=== PATIENT | female | born 1940 | race Caucasian/White ===

== ENCOUNTER 2016-08-11 06:43 | Emergency (ER) | payer MEDICARE, BC ==
[2016-08-11] MEDS ORDERED: Albuterol/Ipratropium 3.0-0.5 MG/3 ML Neb Soln NEB ONE (07:06)
[2016-08-11] MEDS ORDERED: Ipratropium 0.02% 0.5 MG/2.5 ML Neb Soln NEB STA (07:09)
[2016-08-11] MEDS ORDERED: Sodium Chloride 0.9% 10 ML Syringe FLUSH PRN (07:28)
--- NOTE | 2016-08-11 07:41 | EDM.PDOC ---
[id number]: TROUBLE BREATHING Time Seen by Provider: 08/11/16 06:45 Source: Reports: Patient, Family History Limitations: Reports: Respiratory distress - History of Present Illness INITIAL COMMENTS - FREE TEXT/NARRATIVE: 76 y.o.w.f. with a h/o a large hiatal hernia, H/O PE 1 year ago came to the ed with her SO because she woke up with SOB. No C/P. pt walked into the ed. Her o2 was 92% on RA. Pt is on 2 l O2 by NC at home. Pt denies any other acute medical issues. Symptom Onset Date: 08/11/16 Symptom Onset Time: 06:00 Timing/Duration: Reports: Hour(s): Severity: mild Location, General: Reports: chest Quality: Reports: Same as previous episode Improves with: Reports: Rest Worsens with: Reports: Movement Context, General: Reports: Activity, Exercise Associated Symptoms: Reports: shortness of breath - Related Data Allergies/ADRs: Allergies Allergy/AdvReac Type Severity Reaction Status Date / Time codeine Allergy Severe angioedema Verified 08/11/16 13:14 albuterol sulfate Allergy Unknown UNKNOWN Verified 08/11/16 13:14 [From Ventolin HFA] aspirin AdvReac Mild Vomiting Verified 08/11/16 13:14 Home Meds: Home Meds . [Unable to Verify Home Med List] 08/11/16 [History] Past Medical History - Past Health History Medical/Surgical History: Denies Medical/Surgical History HEENT History: Reports: Other (see below) Other HEENT History: Wears glasses usually. Cardiovascular History: Reports: Blood clots/VTE/DVT Other Cardiovascular History: Recent blood clot in right leg. Respiratory History: Reports: Other (see below) Other Respiratory History: Recent bronchitis. Gastrointestinal History: Reports: GERD Musculoskeletal History: Reports: Arthritis Other Musculoskeletal History: Arthritis in hands and legs. Neurological History: Reports: Seizure Other Neuro History: Epilepsy. Hematologic History: Reports: Anemia, Anticoagulation therapy, Blood transfusion (s), Other (see below) Other Hematologic History: Denies any past history of anemia. - Infectious Disease History Infectious Disease History: Reports: Chicken pox, Rubella - Past Surgical History HEENT Surgical History: Reports: Cataract surgery, Tonsillectomy GI Surgical History: Reports: Colonoscopy, Hernia repair/other, Rimma fundoplication Musculoskeletal Surgical History: Reports: None Social & Family History - Tobacco Use Smoking Status *Q: Never Smoker Second Hand Smoke Exposure: No - Alcohol Use Days Per Week of Alcohol Use: 0 - Recreational Drug Use Recreational Drug Use: No ED ROS GENERAL - Review of Systems Review Of Systems: See Below Constitutional: Reports: no symptoms HEENT: Reports: No symptoms Respiratory: Reports: Shortness of Breath Cardiovascular: Reports: No symptoms Endocrine: Reports: no symptoms GI/Abdominal: Reports: No symptoms : Reports: no symptoms Musculoskeletal: Reports: no symptoms Skin: Reports: no symptoms Neurological: Reports: No Symptoms Psychiatric: Reports: No symptoms Hematologic/Lymphatic: Reports: no symptoms Immunologic: Reports: no symptoms ED EXAM, GENERAL - Physical Exam Exam: See Below Exam Limited By: Respiratory distress General Appearance: alert, WD/WN, mild distress, thin Eye Exam: bilateral eye: normal inspection Ears: normal external exam, normal canal Ear Exam: bilateral ear: auricle normal Nose: normal inspection, normal mucosa, no blood Throat/Mouth: Normal lips, Normal voice, No airway compromise Head: atraumatic, normocephalic Neck: normal inspection, supple, non-tender, full range of motion Respiratory/Chest: normal breath sounds, wheezing (mild) Cardiovascular: normal peripheral pulses, regular rate, rhythm Peripheral Pulses: 2+: femoral (L), femoral (R) GI/Abdominal: tender (chronic), mass (h/o hiatal hernia) (Female) Exam: Deferred Rectal (Female) Exam: Deferred Back Exam: normal inspection, full range of motion Extremities: normal inspection, normal range of motion, non-tender Neurological: alert, oriented, CN II-XII intact, normal cognition, normal gait Psychiatric: normal affect, normal mood Skin Exam: Warm, Dry, Intact, Normal color, No rash EKG INTERPRETATION EKG Date: 08/11/16 Time: 07:30 Rate (beats/min): 58 [place]: normal P-wave: present QRS: normal ST-T: normal QT: normal Comparison: NA - no prior EKG Course - Vital Signs Text/Narrative:: 76 y.o.w.f. with a h/o a large hiatal hernia, H/O PE 1 year ago came to the ed with her SO because she woke up with SOB. No C/P. pt walked into the ed. Her o2 was 92% on RA. Pt is on 2 l O2 by NC at home. Pt denies any other acute medical issues. PE: Thin 76 y.o.w.f. in no obvious discomfort. pulse ox was 92% on 2 liters. Lungs were clear Labs: D Dimer was elevated to 525 Imaging: CTA was negfro PE. Pt has a large hiatal hernia Impression: Asthma, on home O2, Hiatal hernia Tx: Chen olivarez. Reexam: Pt improved, was on her baseline and requested to be discharged. Plan: D/C with instructions. Last Recorded V/S: Last Vital Signs Temp 36.2 C 08/11/16 07:15 Pulse 58 L 08/11/16 08:15 Resp 20 08/11/16 08:45 BP 121/65 08/11/16 08:45 Pulse Ox 99 08/11/16 08:45 - Orders/Labs/Meds Labs: Laboratory Tests 08/11/16 08/11/16 08/11/16 Range/Units 07:15 07:15 07:15 WBC 4.8 (4.5-12.0) X10-3/uL RBC 4.33 (3.23-5.20) x10(6)uL Hgb 12.9 D (11.5-15.5) g/dL Hct 38.3 D (30.0-51.3) % MCV 88.4 (80-96) fL MCH 29.7 (27.7-33.6) pg MCHC 33.6 (32.2-35.4) g/dL RDW 13.4 (11.5-15.5) % Plt Count 155 (125-369) X10(3)uL MPV 7.9 (7.4-10.4) fL Neut % (Auto) 51.1 (46-82) % Lymph % (Auto) 30.6 (13-37) % [place] % (Auto) 9.7 (4-12) % Eos % (Auto) 8 H (1.0-5.0) % Baso % (Auto) 1 (0-2) % Neut # (Auto) 2.4 (1.6-8.3) # Lymph # (Auto) 1.5 (0.6-5.0) # [place] # (Auto) 0.5 (0.0-1.3) # Eos # (Auto) 0.4 (0.0-0.8) # Baso # (Auto) 0.0 (0.0-0.2) # PT 10.6 (8.7-11.1) INR 1.05 (0.89-1.13) D-Dimer, Quantitative 525 H (100-400) ng/mL ABG pH (7.35-7.45) ABG pCO2 (35-45) mmHg ABG pO2 (83-108) mmHg ABG HCO3 (22-26) mmol/L ABG O2 Saturation (96-97) % ABG Base Excess (-2-2) Tian Test O2 Delivery Device Oxygen Flow Rate L Sodium (135-145) mmol/L Potassium (3.5-5.3) mmol/L Chloride (100-110) mmol/L Carbon Dioxide (23-29) mmol/L BUN (8-23) mg/dL Creatinine (0.6-1.3) mg/dL Est Cr Clr Drug Dosing Estimated GFR (MDRD) (>60) BUN/Creatinine Ratio (9-20) Glucose (80-116) mg/dL Calcium (8.6-10.2) mg/dL Troponin I (0.02-0.06) NG/ML 08/11/16 08/11/16 08/11/16 Range/Units 07:15 07:15 07:35 WBC (4.5-12.0) X10-3/uL RBC (3.23-5.20) x10(6)uL Hgb (11.5-15.5) g/dL Hct (30.0-51.3) % MCV (80-96) fL MCH (27.7-33.6) pg MCHC (32.2-35.4) g/dL RDW (11.5-15.5) % Plt Count (125-369) X10(3)uL MPV (7.4-10.4) fL Neut % (Auto) (46-82) % Lymph % (Auto) (13-37) % [place] % (Auto) (4-12) % Eos % (Auto) (1.0-5.0) % Baso % (Auto) (0-2) % Neut # (Auto) (1.6-8.3) # Lymph # (Auto) (0.6-5.0) # [place] # (Auto) (0.0-1.3) # Eos # (Auto) (0.0-0.8) # Baso # (Auto) (0.0-0.2) # PT (8.7-11.1) INR (0.89-1.13) D-Dimer, Quantitative (100-400) ng/mL ABG pH 7.42 (7.35-7.45) ABG pCO2 37 (35-45) mmHg ABG pO2 94 (83-108) mmHg ABG HCO3 23 (22-26) mmol/L ABG O2 Saturation 98 H (96-97) % ABG Base Excess -0.1 (-2-2) Tian Test Passed O2 Delivery Device Nasal cannula Oxygen Flow Rate 0 L Sodium 137 (135-145) mmol/L Potassium 3.9 (3.5-5.3) mmol/L Chloride 106 (100-110) mmol/L Carbon Dioxide 24 (23-29) mmol/L BUN 26 H (8-23) mg/dL Creatinine 0.9 (0.6-1.3) mg/dL Est Cr Clr Drug Dosing TNP Estimated GFR (MDRD) > 60 (>60) BUN/Creatinine Ratio 28.9 H (9-20) Glucose 97 (80-116) mg/dL Calcium 9.0 (8.6-10.2) mg/dL Troponin I < 0.01 L (0.02-0.06) NG/ML Meds: Medications Discontinued Medications Generic Name Dose Route Start Last Admin Trade Name [place] PRN Reason Stop Dose Admin Albuterol/Ipratropium 3 ml 08/11/16 07:06 Duoneb 3.0-0.5 Mg/3 Ml NEB 08/11/16 07:07 ONETIME ONE Iopamidol 75 ml 08/11/16 08:06 08/11/16 08:28 Isovue-370 (76%) IV 08/11/16 08:07 57 ml ONETIME ONE Administration Ipratropium [place] 0.5 mg 08/11/16 07:09 08/11/16 08:05 Atrovent NEB 08/11/16 07:10 0.5 mg ONETIME STA Administration Sodium Chloride 10 ml 08/11/16 07:28 Saline Flush FLUSH ASDIRECTED PRN Keep Vein Open Departure - Departure Time of Disposition: 09:34 Disposition: Home, Self-Care 01 Condition: good Clinical Impression: Hiatal hernia, Elevated d-dimer Asthma Qualifiers: Asthma severity: unspecified severity Asthma complication type: uncomplicated Qualified Code(s): J45.909 - Unspecified asthma, uncomplicated Referrals: Bashir Lopez MD [Primary Care Provider] - Forms: ED Department Discharge Additional Instructions: Please cont your meds, please f/u, please f/u, please come back to the ed if symptoms get worse acutely.
[2016-08-11] MEDS ORDERED: Iopamidol 755 Mg/ML 75 ML Bottle IV ONE (08:06)
--- NOTE | 2016-08-11 10:40 | CR ---
INDICATION: Short of breath. CHEST: Portable AP upright view of the chest 08/11/2016 was compared with 08/27 and 03/23/2015, again revealing the heart to be enlarged with tortuous calcified aorta and what appears to be a large fixed hiatal hernia. Lungs appear to be somewhat hyperaerated, suggesting COPD. Overlying EKG leads are noted. A definite active infiltrate or effusion was not identified. IMPRESSION: 1. No definite acute process but difficult to exclude a mild degree of CHF in this patient with ASHD and cardiomegaly. 2. COPD. 3. Large fixed hiatal hernia. MTDD
[2016-08-11 15:08] VITALS: BP 121/65
== END 2016-08-11 09:52 | disposition home or self-care (01) ==
LOC: FB.ED 06:43
DX: K44.9 Diaphragmatic hernia without obstruction or gangrene (principal); J45.909 Unspecified asthma, uncomplicated; R79.1 Abnormal coagulation profile; K21.9 Gastro-esophageal reflux disease without esophagitis; Z88.8 Allergy status to other drugs, medicaments and biological substances; Z88.6 Allergy status to analgesic agent
CPT/HCPCS: 36415; 36600; 71010; 71275; 80048; 82803; 84484; 85025; 85379; 85610; 93005; 99285; Q9967; 99284

== ENCOUNTER 2016-09-20 06:21 | Day surgery (SDC) | payer MEDICARE, BC ==
[2016-09-20] MEDS ORDERED: Lactated Ringers 1,000 ML IV SCH (07:30)
[2016-09-20] MEDS ORDERED: Lidocaine 2% 100 MG/5 ML Syringe IVPUSH ONE (09:00)
[2016-09-20] MEDS ORDERED: Propofol 200 MG/20 ML SDV IV ONE (09:00)
--- NOTE | 2016-09-20 09:27 | PCM.OPNOTE ---
- General Post-Op/Procedure Note Date of Surgery/Procedure: 09/20/16 Operative Procedure(s): egd with bx Findings: gastritis gastric polyps Marques's esophagus Pre Op Diagnosis: hx of Marques's Post-Op Diagnosis: gastritis. gastric polyps. Marques's esophagus Anesthesia Technique: MAC Primary Surgeon: Jay Phoenix Anesthesia Provider: Fernando Post Pathology: stomach, gastric polyps and distal esophagus Complications: None Condition: Good Free Text/Narrative:: see dictation
[2016-09-20 10:13] VITALS: BP 136/71
--- NOTE | 2016-09-20 13:53 | OR ---
DATE OF OPERATION: 09/20/2016 SURGEON: Jay Phoenix MD PROCEDURE PERFORMED: EGD with cold forceps biopsy. PREOPERATIVE DIAGNOSIS: Personal history of Marques esophagus. POSTOPERATIVE DIAGNOSES: Gastritis, hyperplastic polyps, hiatal hernia, and Marques's. INDICATIONS FOR PROCEDURE: This is a 76-year-old white female who was scoped last year, she was found to have Marques esophagus and also some evidence of ulceration and because of that finding, I recommended a followup scope at the one-year point. Clinically, she is doing quite well. DESCRIPTION OF PROCEDURE: After an excellent IV sedation was administered, bite block was inserted. The flexible endoscope was passed without difficulty down the patient's esophagus and into the stomach. The stomach was insufflated, scope was passed through the pylorus to the second portion of the duodenum and slowly withdrawn. The following findings were noted. Duodenum was unremarkable. Stomach demonstrates a hiatal hernia with some gastritis as well as hyperplastic polyps and employee relations representative biopsies were taken. GE junction was highly irregular consistent with her diagnosis of Marques esophagus. There was no evidence of ulceration. Circumferential biopsies were taken of the Marques's. Remainder of the esophageal exam was unremarkable. The stomach was deflated and scope was removed. The patient tolerated the procedure well and was taken to recovery room in good condition. /[id number] /MODL
== END 2016-09-20 10:31 | disposition home or self-care (01) ==
LOC: FB.SDS 06:21
PROVIDERS: ATTEND Surgery
DX: K22.70 Barrett's esophagus without dysplasia (principal); K29.50 Unspecified chronic gastritis without bleeding; K44.9 Diaphragmatic hernia without obstruction or gangrene; K31.7 Polyp of stomach and duodenum; K21.9 Gastro-esophageal reflux disease without esophagitis; Z87.11 Personal history of peptic ulcer disease; M81.0 Age-related osteoporosis without current pathological fracture; Z87.01 Personal history of pneumonia (recurrent); D64.9 Anemia, unspecified; Z79.01 Long term (current) use of anticoagulants; Z79.899 Other long term (current) drug therapy; Z86.718 Personal history of other venous thrombosis and embolism; Z88.5 Allergy status to narcotic agent; Z88.6 Allergy status to analgesic agent; Z88.8 Allergy status to other drugs, medicaments and biological substances; R06.02 Shortness of breath
CPT/HCPCS: 00740; 43239; 88305; 88313; 88342; J2704; J7120

== ENCOUNTER 2016-09-29 00:08 | Emergency (ER) | payer MEDICARE, BC ==
[2016-09-29] MEDS ORDERED: Albuterol/Ipratropium 3.0-0.5 MG/3 ML Neb Soln NEB ONE (00:40)
--- NOTE | 2016-09-29 00:46 | EDM.PDOC ---
ED HPI GENERAL MEDICAL PROBLEM - General Chief Complaint: Respiratory Problem Stated Complaint: SOB Time Seen by Provider: 09/29/16 00:17 Source of Information: Reports: Patient, Family History Limitations: Reports: Physical Impairment - History of Present Illness INITIAL COMMENTS - FREE TEXT/NARRATIVE: 76 years old w f with H/O asthma, came with her SO by PC to the ed due sob. Pt was sleeping and suddenly woke up, unable to breath. Pt had similar symptoms in the past as per SO. No C/P. Pt has r lower leg cramps as well, which come and go. Pt denied other acute medical issues. 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 [employer]MENT: Reports: Breathing Treatments Throat Pain Score (Numeric/FACES): 5 - Related Data Allergies Allergy/AdvReac Type Severity Reaction Status Date / Time codeine Allergy Severe angioedema Verified 09/29/16 00:16 aspirin AdvReac Mild Vomiting Verified 09/29/16 00:16 Home Meds: Home Meds Acetaminophen [Tylenol Extra Strength] 1,000 mg PO Q6H PRN 09/19/16 [History] Albuterol [Proventil Neb Soln] 2.5 mg INH QID PRN 09/19/16 [History] Beclomethasone Dipropionate [Qvar 80 Mcg] 2 puff INH BID 09/19/16 [History] Calcium Carbonate/Vitamin D3 [Calcium 600 + Vit D 200] 1 each PO BID 09/19/16 [ History] Ferrous Sulfate 325 mg PO DAILY 09/19/16 [History] Omeprazole 20 mg PO DAILY 09/19/16 [History] Phenytoin Sodium Extended [Dilantin] 100 mg PO BID 09/19/16 [History] Past Medical History - Past Health History Medical/Surgical History: Denies Medical/Surgical History HEENT History: Reports: None, Cataract Other HEENT History: Wears glasses usually. Cardiovascular History: Reports: Blood Clots/VTE/DVT, Other (See Below) Other Cardiovascular History: EDEMA Respiratory History: Reports: Pneumonia, Recurrent Other Respiratory History: COUGH, DIAPHRAGMATIC HERNIA Gastrointestinal History: Reports: Gastritis, GERD, Hiatal Hernia, PUD, Other ( See Below) Other Gastrointestinal History: GASTRODUODENITIS, BARRETTS ESOPHAGUS Genitourinary History: Reports: None Musculoskeletal History: Reports: Osteoporosis, Other (See Below) Other Musculoskeletal History: ANKLE SPRAIN Neurological History: Reports: Seizure Other Neuro History: Epilepsy. Endocrine/Metabolic History: Hematologic History: Reports: Anemia Other Hematologic History: Denies any past history of anemia. - Infectious Disease History Infectious Disease History: Reports: Chicken Pox, Rubella - Past Surgical History HEENT Surgical History: Reports: None GI Surgical History: Reports: EGD, Hernia Repair/Other, Other (See Below) Social & Family History - Tobacco Use Smoking Status *Q: Former Smoker Used Tobacco, but Quit: No Month Tobacco Last Used: unknown Second Hand Smoke Exposure: No - Caffeine Use Caffeine Use: Reports: Coffee - Alcohol Use Days Per Week of Alcohol Use: 0 - Recreational Drug Use Recreational Drug Use: No ED ROS GENERAL - Review of Systems Review Of Systems: See Below Constitutional: Reports: No Symptoms HEENT: Reports: No Symptoms Respiratory: Reports: Shortness of Breath Cardiovascular: Reports: No Symptoms Endocrine: Reports: No Symptoms GI/Abdominal: Reports: No Symptoms : Reports: No Symptoms Musculoskeletal: Reports: No Symptoms Skin: Reports: No Symptoms Neurological: Reports: No Symptoms Psychiatric: Reports: No Symptoms Hematologic/Lymphatic: Reports: No Symptoms Immunologic: Reports: No Symptoms ED EXAM, GENERAL - Physical Exam Exam: See Below Exam Limited By: Physical Impairment General Appearance: Alert, Mild Distress, Thin Eye Exam: Bilateral Eye: Normal Inspection Ears: Normal External Exam Ear Exam: Bilateral Ear: Auricle Normal Nose: Normal Inspection, Normal Mucosa Throat/Mouth: Normal Inspection, Normal Gums, No Airway Compromise Head: Atraumatic, Normocephalic Neck: Normal Inspection, Supple, Non-Tender, Full Range of Motion Respiratory/Chest: Respiratory Distress, Wheezing Cardiovascular: Normal Peripheral Pulses, Regular Rate, Rhythm, No Edema, No Gallop Peripheral Pulses: 1+: Femoral (L), Femoral (R) GI/Abdominal: Normal Bowel Sounds, Soft, Non-Tender, No Organomegaly (Female) Exam: Deferred Rectal (Female) Exam: Deferred Back Exam: Full Range of Motion, Other (severe kyphosis) Extremities: Normal Inspection, Other (pain at left ant prox tibia) Neurological: Alert, Oriented, CN II-XII Intact, Normal Cognition Psychiatric: Normal Affect, Normal Mood Skin Exam: Warm, Dry, Intact, Pallor Lymphatic: No Adenopathy EKG INTERPRETATION EKG Date: 09/29/16 Time: 00:33 Rhythm: NSR Rate (beats/min): 68 [place]: normal P-wave: present QRS: normal ST-T: normal QT: normal Comparison: NA - no prior EKG Course - Vital Signs Text/Narrative:: 76 years old w f with H/O asthma, came with her SO by PC to the ed due sob. Pt was sleeping and suddenly woke up, unable to breath. Pt had similar symptoms in the past as per SO. No C/P. Pt has r lower leg cramps as well, which come and go. Pt denied other acute medical issues. PE: Exp. Wheezes Imaging: CXR: NAD Labs: CBC, BNP, BMP WNL, however, the BUN/CR ratio is 28 Impression: Asthma exacerbation, chronic intermittent left lower leg pain. Tx: Duoneb, Albuterol neb. Reexam: Improved, clear lungs, left leg pain 80% better Plan: D/C with instructions Last Recorded V/S: Last Vital Signs Temp 36.7 C 09/29/16 00:17 Pulse 70 09/29/16 01:50 Resp 16 09/29/16 01:50 BP 153/71 H 09/29/16 01:50 Pulse Ox 97 09/29/16 01:50 - Orders/Labs/Meds Orders: Active Orders 24 hr Category Date Time Status RT Aerosol Therapy [RC] ASDIRECTED Care 09/29/16 00:40 Active RT Aerosol Therapy [RC] ASDIRECTED Care 09/29/16 01:24 Active Chest 1V Frontal [CR] Stat Exams 09/29/16 00:42 Taken Ice Bag [Ice Therapy] [OM.PC] Routine Oth 09/29/16 00:53 Ordered Labs: Laboratory Tests 09/29/16 09/29/16 09/29/16 Range/Units 00:57 00:57 00:57 WBC 6.9 (4.5-12.0) X10-3/uL RBC 4.13 (3.23-5.20) x10(6)uL Hgb 12.5 (11.5-15.5) g/dL Hct 36.5 (30.0-51.3) % MCV 88.5 (80-96) fL MCH 30.4 (27.7-33.6) pg MCHC 34.3 (32.2-35.4) g/dL RDW 13.0 (11.5-15.5) % Plt Count 159 (125-369) X10(3)uL MPV 8.0 (7.4-10.4) fL Neut % (Auto) 64.9 (46-82) % Lymph % (Auto) 22.8 (13-37) % [place] % (Auto) 7.9 (4-12) % Eos % (Auto) 4 (1.0-5.0) % Baso % (Auto) 0 (0-2) % Neut # (Auto) 4.5 (1.6-8.3) # Lymph # (Auto) 1.6 (0.6-5.0) # [place] # (Auto) 0.5 (0.0-1.3) # Eos # (Auto) 0.3 (0.0-0.8) # Baso # (Auto) 0.0 (0.0-0.2) # PT 10.9 (8.7-11.1) INR 1.08 (0.89-1.13) D-Dimer, Quantitative (100-400) ng/mL Sodium 142 (135-145) mmol/L Potassium 3.9 (3.5-5.3) mmol/L Chloride 109 (100-110) mmol/L Carbon Dioxide 25 (23-29) mmol/L BUN 23 (8-23) mg/dL Creatinine 0.8 (0.6-1.3) mg/dL Est Cr Clr Drug Dosing 41.63 mL/min Estimated GFR (MDRD) > 60 (>60) BUN/Creatinine Ratio 28.8 H (9-20) Glucose 105 (80-116) mg/dL Calcium 8.9 (8.6-10.2) mg/dL Troponin I (0.02-0.06) NG/ML B-Natriuretic Peptide (0-100) pg/mL 09/29/16 09/29/16 09/29/16 Range/Units 00:57 00:57 00:57 WBC (4.5-12.0) X10-3/uL RBC (3.23-5.20) x10(6)uL Hgb (11.5-15.5) g/dL Hct (30.0-51.3) % MCV (80-96) fL MCH (27.7-33.6) pg MCHC (32.2-35.4) g/dL RDW (11.5-15.5) % Plt Count (125-369) X10(3)uL MPV (7.4-10.4) fL Neut % (Auto) (46-82) % Lymph % (Auto) (13-37) % [place] % (Auto) (4-12) % Eos % (Auto) (1.0-5.0) % Baso % (Auto) (0-2) % Neut # (Auto) (1.6-8.3) # Lymph # (Auto) (0.6-5.0) # [place] # (Auto) (0.0-1.3) # Eos # (Auto) (0.0-0.8) # Baso # (Auto) (0.0-0.2) # PT (8.7-11.1) INR (0.89-1.13) D-Dimer, Quantitative 288 (100-400) ng/mL Sodium (135-145) mmol/L Potassium (3.5-5.3) mmol/L Chloride (100-110) mmol/L Carbon Dioxide (23-29) mmol/L BUN (8-23) mg/dL Creatinine (0.6-1.3) mg/dL Est Cr Clr Drug Dosing mL/min Estimated GFR (MDRD) (>60) BUN/Creatinine Ratio (9-20) Glucose (80-116) mg/dL Calcium (8.6-10.2) mg/dL Troponin I < 0.01 L (0.02-0.06) NG/ML B-Natriuretic Peptide 87 (0-100) pg/mL Meds: Medications Discontinued Medications Generic Name Dose Route Start Last Admin Trade Name Freq PRN Reason Stop Dose Admin Hydrocodone Bitart/Acetaminophen 1 tab 09/29/16 01:41 09/29/16 01:48 [place] 325-5 Mg PO 09/29/16 01:42 1 tab ONETIME ONE Administration Albuterol 2.5 mg 09/29/16 01:24 09/29/16 01:34 Proventil Neb Soln NEB 09/29/16 01:25 2.5 mg ONETIME ONE Administration Albuterol/Ipratropium 3 ml 09/29/16 00:40 09/29/16 00:55 Duoneb 3.0-0.5 Mg/3 Ml NEB 09/29/16 00:41 3 ml ONETIME ONE Administration Ketorolac Tromethamine 15 mg 09/29/16 00:53 09/29/16 01:09 Toradol IVPUSH 09/29/16 00:54 15 mg ONETIME ONE Administration Departure - Departure Time of Disposition: 02:01 Disposition: Home, Self-Care 01 Condition: good Clinical Impression: Asthma attack Lower extremity pain, anterior Qualifiers: Laterality: left Qualified Code(s): M79.605 - Pain in left leg - Discharge Information Referrals: Bashir Lpoez MD [Primary Care Provider] - Forms: ED Department Discharge Additional Instructions: Please take motrin for pain, please apply ice to the affected area, please f/u, come back if your symptoms get worse acutely - My Orders Last 24 Hours: My Active Orders 09/29/16 00:40 RT Aerosol Therapy [RC] ASDIRECTED 09/29/16 00:42 Chest 1V Frontal [CR] Stat 09/29/16 00:53 Ice Bag [Ice Therapy] [OM.PC] Routine 09/29/16 01:24 RT Aerosol Therapy [RC] ASDIRECTED - Assessment/Plan Last 24 Hours: My Active Orders 09/29/16 00:40 RT Aerosol Therapy [RC] ASDIRECTED 09/29/16 00:42 Chest 1V Frontal [CR] Stat 09/29/16 00:53 Ice Bag [Ice Therapy] [OM.PC] Routine 09/29/16 01:24 RT Aerosol Therapy [RC] ASDIRECTED
[2016-09-29] MEDS ORDERED: Ketorolac 30 MG/ML SDV IVPUSH ONE (00:53)
[2016-09-29] MEDS ORDERED: Albuterol 0.083% 2.5 MG/3 ML Neb Soln NEB ONE (01:24)
[2016-09-29] MEDS ORDERED: Acetaminophen/HYDROcodone 325-5 MG Tab PO ONE (01:41)
[2016-09-29 02:27] VITALS: BP 128/63
--- NOTE | 2016-09-29 11:29 | CR ---
INDICATION: Short of breath. CHEST: Portable AP upright view of the chest 09/29/2016 was compared with 08/11 and 08/28/2015, again revealing an appearance of fairly marked cardiomegaly. This appearance could be on the basis of a pericardial effusion and should be correlated clinically. The mass behind the heart may represent a large fixed hiatal hernia. The aorta is tortuous and calcified in the arch area. Overlying EKG leads are noted. Hyperaeration and minimal flattening of diaphragm leaves raises question of COPD. Upper lung field pulmonary vasculature is prominent, suggesting a mild degree of CHF. There are some minimal interstitial markings, raising question of minimal interstitial lung edema. IMPRESSION: 1. ASHD with cardiomegaly versus pericardial effusion. Echocardiography may be helpful in that regard. 2. Probable mild CHF and minimal interstitial lung edema. 3. Large fixed hiatal hernia is suggested. 4. Probable COPD. MTDD
== END 2016-09-29 02:15 | disposition home or self-care (01) ==
LOC: FB.ED 00:08
DX: J45.909 Unspecified asthma, uncomplicated (principal); M79.605 Pain in left leg; K21.9 Gastro-esophageal reflux disease without esophagitis; D64.9 Anemia, unspecified; Z88.5 Allergy status to narcotic agent; Z79.899 Other long term (current) drug therapy; Z98.49 Cataract extraction status, unspecified eye; Z87.891 Personal history of nicotine dependence; Z88.6 Allergy status to analgesic agent; Z87.01 Personal history of pneumonia (recurrent)
CPT/HCPCS: 36415; 71010; 80048; 83880; 84484; 85025; 85379; 85610; 93005; 94640; 94664; 96374; 99284; 99285; A9270; J1885; J7620

== ENCOUNTER 2016-11-26 17:18 | Emergency (ER) | payer MEDICARE, BC ==
[2016-11-26] MEDS ORDERED: Sodium Chloride 0.9% 10 ML Syringe FLUSH PRN (17:32)
[2016-11-26] MEDS ORDERED: Azithromycin 250 MG Tab PO ONE (18:21)
[2016-11-26 18:39] VITALS: BP 158/75
--- NOTE | 2016-11-27 03:19 | ER ---
DATE SEEN: 11/26/2016 REASON FOR VISIT: Difficulty breathing. HISTORY OF PRESENT ILLNESS: A 76-year-old female complaining of difficulty breathing since this afternoon. She also has nasal congestion, mild cough, but denies any chest pain, no fever. PAST MEDICAL HISTORY: Heart failure, asthma, esophagitis, hiatal hernia, DVT. ALLERGIES: Codeine and aspirin. PHYSICAL EXAMINATION: VITAL SIGNS: Pulse is 68, temperature 97.1, blood pressure is normal. Oxygenation 97% room air. ENT: Clear nasal drainage. Oropharynx clear. NECK: Supple. CHEST: Clear. LABORATORY DATA: White cell count is normal. BNP 70. X-ray of the chest is negative with the exception of cardiomegaly. EKG was negative. IMPRESSION: Upper respiratory infection with some mild sinusitis. PLAN: My plan is to send her home with [facility] and also have her use Claritin-D and other symptomatic remedies [id number]. Follow up vignesh /[id number] ZACH/KALEIGH
--- NOTE | 2016-11-27 14:37 | CR ---
INDICATION: Difficulty breathing. COMPARISON: Portable chest 29 Sep 2016. PA AND LATERAL CHEST: Multiple mild to moderate in prominence compression fractures inferior thoracic, superior lumbar spine at the expected location of T12-L1, L2, without destructive change. There is approximately 5.9 mm of retrolisthesis of expected location L2 and L3. No definite spondylolysis on more limited examination. Marked in size hiatus hernia with air fluid level, cardiophrenic angle regions bilaterally, retrocardiac region, stable. Moderate perihilar, bibasilar segmental atelectasis, and/or parenchymal scarring change with volume loss, mildly decreased left and stable right. Minimal pleural effusion right cardiophrenic angle region and this region was not adequately visualized with a single frontal view only previously. Marked cardiomegaly, no interstitial edema, stable. No other interval change. Water bag configuration of cardiac silhouettes, stable. IMPRESSION: 1. Moderate perihilar, bibasilar segmental atelectasis, and/or parenchymal scarring change, mildly decreased left, stable right. 2. Minimal right pleural effusion. 3. Marked hiatus hernia, stable. 4. Multiple compression fractures as described inferior thoracolumbar spine, statistically more likely secondary to insufficiency from osteoporosis and other posttraumatic or infiltrative process still possible, nonspecific etiology. Correlation with thoracic spine series would provide optimal evaluation. 5. Grade 1 spondylolisthesis of expected location of L2 and L3, more likely secondary to degenerative spondylosis and occult spondylolysis less likely. Correlation with bilateral oblique views, lumbar spine series can help differentiate between the etiologies. 6. Marked cardiomegaly with water bag configuration which can be seen with pericardial effusion. Correlation with clinical examination for pulsus paradoxus recommended and echocardiogram would be recommended if clinical suspicion exists for pericardial effusion. MTDD
== END 2016-11-26 18:30 | disposition home or self-care (01) ==
LOC: FB.ED 17:18
DX: J06.9 Acute upper respiratory infection, unspecified (principal); J32.9 Chronic sinusitis, unspecified; I50.9 Heart failure, unspecified; J45.909 Unspecified asthma, uncomplicated; K20.9 Esophagitis, unspecified; Z98.890 Other specified postprocedural states; Z88.5 Allergy status to narcotic agent; Z88.8 Allergy status to other drugs, medicaments and biological substances
CPT/HCPCS: 36415; 71020; 80048; 83880; 84484; 85025; 93005; 99285; A9270; 99283

== ENCOUNTER 2017-01-17 04:59 | Emergency (ER) | payer MEDICARE, BC ==
[2017-01-17] MEDS ORDERED: Aspirin 81 MG Tab.Chew PO ONE (05:13)
[2017-01-17] MEDS ORDERED: Ketorolac 30 MG/ML SDV IM ONE (05:22)
[2017-01-17] MEDS ORDERED: traMADol 50 MG Tab PO ONE ×2 (05:23→05:34)
[2017-01-17] MEDS ORDERED: Acetaminophen 325 MG Tab PO ONE (05:23)
--- NOTE | 2017-01-17 05:29 | EDM.PDOC ---
ED HPI GENERAL MEDICAL PROBLEM - General Chief Complaint: Chest Pain Stated Complaint: CHEST PAIN Time Seen by Provider: 01/17/17 05:15 Source of Information: Reports: Patient, Family, Old Records History Limitations: Reports: Other (poor historian) - History of Present Illness INITIAL COMMENTS - FREE TEXT/NARRATIVE: 76 yo female presents with her for L chest pain x 6 hrs. Awoke her from sleep. No SOB, no diaphoresis. When pushed admits she fell outside yesterday and landed on her left side. Has taken nothing for pain relief. Onset: Gradual Onset Date: 01/16/17 Onset Time: 23:00 Duration: Hour(s):, Intermittent Location: Reports: Chest Quality: Reports: Sharp, Stabbing Severity: Moderate Improves with: Reports: Rest Worsens with: Reports: Movement (or pressing on area.) Context: Reports: Trauma (fell outside, falls often) Associated Symptoms: Reports: No Other Symptoms Treatments TITLE I ASSISTANT: Reports: Other (see below) (none) Left Chest Pain Score (Numeric/FACES): 8 - Related Data Allergies Allergy/AdvReac Type Severity Reaction Status Date / Time codeine Allergy Severe angioedema Verified 01/17/17 05:15 Home Meds: Home Meds Acetaminophen [Tylenol Extra Strength] 1,000 mg PO Q6H PRN 09/19/16 [History] Albuterol [Proventil Neb Soln] 2.5 mg INH QID PRN 09/19/16 [History] Beclomethasone Dipropionate [Qvar 80 Mcg] 2 puff INH BID 09/19/16 [History] Calcium Carbonate/Vitamin D3 [Calcium 600 + Vit D 200] 1 each PO BID 09/19/16 [ History] Ferrous Sulfate 325 mg PO DAILY 09/19/16 [History] Omeprazole 20 mg PO DAILY 09/19/16 [History] Phenytoin Sodium Extended [Dilantin] 100 mg PO BID 09/19/16 [History] Memantine [Namenda] 10 mg PO DAILY 11/26/16 [History] Aspirin [Ecotrin] 81 mg PO DAILY 01/17/17 [History] Past Medical History - Past Health History Medical/Surgical History: Denies Medical/Surgical History HEENT History: Reports: None, Cataract Other HEENT History: Wears glasses usually. Cardiovascular History: Reports: Blood Clots/VTE/DVT, Other (See Below) Other Cardiovascular History: EDEMA Respiratory History: Reports: Pneumonia, Recurrent Other Respiratory History: COUGH, DIAPHRAGMATIC HERNIA Gastrointestinal History: Reports: Gastritis, GERD, Hiatal Hernia, PUD, Other ( See Below) Other Gastrointestinal History: GASTRODUODENITIS, BARRETTS ESOPHAGUS Genitourinary History: Reports: None Musculoskeletal History: Reports: Osteoporosis, Other (See Below) Other Musculoskeletal History: ANKLE SPRAIN Neurological History: Reports: Seizure Other Neuro History: Epilepsy. Endocrine/Metabolic History: Hematologic History: Reports: Anemia Other Hematologic History: Denies any past history of anemia. - Infectious Disease History Infectious Disease History: Reports: Chicken Pox, Rubella - Past Surgical History HEENT Surgical History: Reports: None GI Surgical History: Reports: EGD, Hernia Repair/Other, Other (See Below) Social & Family History - Tobacco Use Smoking Status *Q: Never Smoker Used Tobacco, but Quit: No Month Tobacco Last Used: unknown Second Hand Smoke Exposure: No - Caffeine Use Caffeine Use: Reports: Coffee - Alcohol Use Days Per Week of Alcohol Use: 0 - Recreational Drug Use Recreational Drug Use: No ED ROS GENERAL - Review of Systems Review Of Systems: See Below Constitutional: Reports: No Symptoms HEENT: Reports: No Symptoms Respiratory: Reports: No Symptoms Cardiovascular: Reports: Chest Pain (L lower chest) GI/Abdominal: Reports: No Symptoms : Reports: No Symptoms Musculoskeletal: Reports: No Symptoms Skin: Reports: No Symptoms Neurological: Reports: No Symptoms Psychiatric: Reports: No Symptoms ED EXAM, GENERAL - Physical Exam Exam: See Below Exam Limited By: No Limitations General Appearance: Alert, WD/WN, No Apparent Distress Eye Exam: Bilateral Eye: Normal Inspection, PERRL Ears: Normal External Exam, Normal Canal Ear Exam: Bilateral Ear: Auricle Normal, Canal Normal Nose: Normal Inspection, Normal Mucosa, No Blood Throat/Mouth: Normal Inspection, Normal Lips, Normal Teeth, Normal Oropharynx, Normal Voice, No Airway Compromise Head: Atraumatic, Normocephalic Neck: Normal Inspection, Supple, Non-Tender Respiratory/Chest: No Respiratory Distress, Lungs Clear, Normal Breath Sounds, No Accessory Muscle Use, Other (chest wall tenderness present L lower/anterior chest). No: Chest Non-Tender Cardiovascular: Regular Rate, Rhythm GI/Abdominal: Normal Bowel Sounds, Soft, Non-Tender, No Distention Back Exam: Normal Inspection. No: CVA Tenderness (R), CVA Tenderness (L) Extremities: Normal Inspection, Normal Range of Motion, Non-Tender, No Pedal Edema Neurological: Alert, Oriented, CN II-XII Intact, Normal Cognition, No Motor/ Sensory Deficits Psychiatric: Normal Affect, Normal Mood Skin Exam: Warm, Dry, Intact, Normal Color, No Rash Lymphatic: No Adenopathy Course - Orders/Labs/Meds Orders: Active Orders 24 hr Category Date Time Status Cardiac Monitoring [RC] .As Directed Care 01/17/17 05:13 Active EKG Documentation Completion [RC] ASDIRECTED Care 01/17/17 05:13 Active Acetaminophen [Tylenol] Med 01/17/17 05:23 Once 650 mg PO NOW ONE Ketorolac [Toradol] Med 01/17/17 05:22 Once 15 mg IM ONETIME ONE traMADol [Ultram] Med 01/17/17 05:23 Once 50 mg PO ONETIME ONE EKG 12 Lead [EK] Routine Ther 01/17/17 05:13 Ordered Meds: Medications Discontinued Medications Generic Name Dose Route Start Last Admin Trade Name Dakotah PRN Reason Stop Dose Admin Aspirin 324 mg 01/17/17 05:13 01/17/17 05:14 Aspirin PO 01/17/17 05:14 324 mg ONETIME ONE Administration Departure - Departure Time of Disposition: 05:45 Disposition: Home, Self-Care 01 Condition: Good Clinical Impression: Left rib fracture Qualifiers: Encounter type: initial encounter Rib fracture type: single rib Fracture type: closed Qualified Code(s): S22.32XA - Fracture of one rib, left side, initial encounter for closed fracture Referrals: Bashir Lopez MD [Primary Care Provider] - - My Orders Last 24 Hours: My Active Orders 01/17/17 05:13 Cardiac Monitoring [RC] .As Directed EKG Documentation Completion [RC] ASDIRECTED EKG 12 Lead [EK] Routine 01/17/17 05:22 Ketorolac [Toradol] 15 mg IM ONETIME ONE 01/17/17 05:23 Acetaminophen [Tylenol] 650 mg PO NOW ONE traMADol [Ultram] 50 mg PO ONETIME ONE - Assessment/Plan Last 24 Hours: My Active Orders 01/17/17 05:13 Cardiac Monitoring [RC] .As Directed EKG Documentation Completion [RC] ASDIRECTED EKG 12 Lead [EK] Routine 01/17/17 05:22 Ketorolac [Toradol] 15 mg IM ONETIME ONE 01/17/17 05:23 Acetaminophen [Tylenol] 650 mg PO NOW ONE traMADol [Ultram] 50 mg PO ONETIME ONE
[2017-01-17 05:48] VITALS: BP 135/84
== END 2017-01-17 05:45 | disposition home or self-care (01) ==
LOC: FB.ED 04:59
DX: S22.32XA Fracture of one rib, left side, initial encounter for closed fracture (principal); K21.9 Gastro-esophageal reflux disease without esophagitis; D64.9 Anemia, unspecified; Z88.5 Allergy status to narcotic agent; Z79.899 Other long term (current) drug therapy; Z87.01 Personal history of pneumonia (recurrent); W19.XXXA Unspecified fall, initial encounter
CPT/HCPCS: 93005; 96372; 99285; A9270; J1885; 99284

== ENCOUNTER 2017-02-22 08:10 | Emergency (ER) | payer MEDICARE, BC ==
[2017-02-22] MEDS ORDERED: Lidocaine 2% 20 ML MDV INFILT ONE (08:11)
--- NOTE | 2017-02-22 08:39 | EDM.PDOC ---
ED HPI GENERAL MEDICAL PROBLEM - General Chief Complaint: Upper Extremity Injury/Pain Stated Complaint: LEFT INDEX FINGER Time Seen by Provider: 02/22/17 08:25 Source of Information: Reports: Patient, Family, Other (X-ray from yesterday) History Limitations: Reports: Other (Poor historian) - History of Present Illness INITIAL COMMENTS - FREE TEXT/NARRATIVE: 77 yo female was reportedly seen 4 days ago in urgent care for a broken L ring finger. She was splinted and referred to an orthopedic surgeon in [place], but they didn't keep that appt because the furnace linda was coming that day. Returns now for finger pain. Has not followed up with anyone since that initial visit here in the ER. Not taking anything for pain. States there was no fx reduction done at the initial ER visit. Onset: Other (02/18/17) Onset Date: 02/18/17 Duration: Day(s):, Constant Location: Reports: Upper Extremity, Left Quality: Reports: Ache Severity: Moderate Improves with: Reports: Rest Worsens with: Reports: Movement Context: Reports: Trauma Associated Symptoms: Reports: No Other Symptoms Treatments [employer]: Reports: Splint(s) - Related Data Allergies Allergy/AdvReac Type Severity Reaction Status Date / Time codeine Allergy Severe angioedema Verified 02/22/17 08:39 Home Meds: Home Meds Acetaminophen [Tylenol Extra Strength] 1,000 mg PO Q6H PRN 09/19/16 [History] Albuterol [Proventil Neb Soln] 2.5 mg INH QID PRN 09/19/16 [History] Beclomethasone Dipropionate [Qvar 80 Mcg] 2 puff INH BID 09/19/16 [History] Calcium Carbonate/Vitamin D3 [Calcium 600 + Vit D 200] 1 each PO BID 09/19/16 [ History] Ferrous Sulfate 325 mg PO DAILY 09/19/16 [History] Omeprazole 20 mg PO DAILY 09/19/16 [History] Phenytoin Sodium Extended [Dilantin] 100 mg PO BID 09/19/16 [History] Memantine [Namenda] 10 mg PO DAILY 11/26/16 [History] Aspirin [Ecotrin] 81 mg PO DAILY 01/17/17 [History] traMADol [Ultram] 50 mg PO Q4H PRN #14 tab 01/17/17 [Rx] Past Medical History - Past Health History Medical/Surgical History: Denies Medical/Surgical History HEENT History: Reports: None, Cataract Other HEENT History: Wears glasses usually. Cardiovascular History: Reports: Blood Clots/VTE/DVT, Other (See Below) Other Cardiovascular History: EDEMA Respiratory History: Reports: Pneumonia, Recurrent Other Respiratory History: COUGH, DIAPHRAGMATIC HERNIA Gastrointestinal History: Reports: Gastritis, GERD, Hiatal Hernia, PUD, Other ( See Below) Other Gastrointestinal History: GASTRODUODENITIS, BARRETTS ESOPHAGUS Genitourinary History: Reports: None Musculoskeletal History: Reports: Osteoporosis, Other (See Below) Other Musculoskeletal History: ANKLE SPRAIN Neurological History: Reports: Seizure Other Neuro History: Epilepsy. Endocrine/Metabolic History: Hematologic History: Reports: Anemia Other Hematologic History: Denies any past history of anemia. - Infectious Disease History Infectious Disease History: Reports: Chicken Pox, Rubella - Past Surgical History HEENT Surgical History: Reports: None GI Surgical History: Reports: EGD, Hernia Repair/Other, Other (See Below) Social & Family History - Tobacco Use Smoking Status *Q: Never Smoker Used Tobacco, but Quit: No Month Tobacco Last Used: unknown Second Hand Smoke Exposure: No - Caffeine Use Caffeine Use: Reports: Coffee - Alcohol Use Days Per Week of Alcohol Use: 0 - Recreational Drug Use Recreational Drug Use: No Review of Systems - Review of Systems Review Of Systems: See Below Constitutional: Reports: No Symptoms Musculoskeletal: Reports: Hand Pain Skin: Reports: Bruising Neurological: Reports: No Symptoms ED EXAM, GENERAL - Physical Exam Exam: See Below Exam Limited By: No Limitations General Appearance: Alert, WD/WN, No Apparent Distress Extremities: Other (L ring finger is swollen, ecchymotic, and painful. There is a short finger splint in place on arrival. ) Neurological: Alert, Oriented, CN II-XII Intact, Normal Cognition, No Motor/ Sensory Deficits Psychiatric: Normal Affect, Normal Mood Skin Exam: Warm, Dry, Intact, No Rash, Ecchymosis Lymphatic: No Adenopathy Course - Vital Signs Text/Narrative:: Digital block with 5 ml of 2% lidocaine. Dislocation reduced and the finger re- splinted with a longer finger splint. - Orders/Labs/Meds Orders: Active Orders 24 hr Category Date Time Status Fingers Fourth Digit Lt F3 [CR] Stat Exams 02/22/17 08:32 Ordered - Radiology Interpretation Free Text/Narrative:: finger X-ray-Fx unchanged, includes subluxation at PIP joint of the middle phalanx with a dorsally displaced fx fragment. Departure - Departure Time of Disposition: 09:25 Disposition: Home, Self-Care 01 Condition: Fair Clinical Impression: Fracture/dislocation, finger, proximal/middle phalanx - Discharge Information Referrals: Bashir Lopez MD [Primary Care Provider] - Forms: ED Department Discharge - My Orders Last 24 Hours: My Active Orders 02/22/17 08:32 Fingers Fourth Digit Lt F3 [CR] Stat - Assessment/Plan Last 24 Hours: My Active Orders 02/22/17 08:32 Fingers Fourth Digit Lt F3 [CR] Stat
[2017-02-22] MEDS ORDERED: Lidocaine 2% 10 ML Amp INJECT ONE (08:58)
[2017-02-22 09:11] VITALS: BP 143/67
--- NOTE | 2017-02-22 10:43 | CR ---
INDICATION: Recheck finger, fell last week. Jammed finger into stairs. LEFT FOURTH DIGIT - FINGER: Three views of the left fourth finger were obtained 02/22/2017 and compared with 02/18/2017, again revealing a corner fracture obliquely through the dorsal aspect of the proximal metaphysis of the middle phalanx of the fourth left finger with a significant deformity - anterior offset of the main fracture fragment. The chip fracture fragment remains in relatively normal position dorsally. Degenerative changes are also noted at the PIP joints and DIP joints visualized to varying degrees. There is also an appearance of demineralization, suggesting osteoporosis. Degenerative changes are also noted at the first metacarpal-carpal joint. IMPRESSION: Fracture with deformity PIP joint 4th left finger. [facility]
== END 2017-02-22 09:25 | disposition home or self-care (01) ==
LOC: FB.ED 08:10
DX: S62.615D Displaced fracture of proximal phalanx of left ring finger, subsequent encounter for fracture with routine healing (principal); K21.9 Gastro-esophageal reflux disease without esophagitis; D64.9 Anemia, unspecified; Z88.5 Allergy status to narcotic agent; X58.XXXD Exposure to other specified factors, subsequent encounter
CPT/HCPCS: 26770; 29125; 73140-F3; 99284

== ENCOUNTER 2017-08-31 14:18 | Emergency (ER) | payer MEDICARE, BC ==
[2013-01-17 06:28] VITALS: BP 120/76
[2017-08-31] MEDS ORDERED: Furosemide 40 MG/4 ML VIAL IVPUSH STA (14:39)
[2017-08-31] MEDS ORDERED: Albuterol/Ipratropium 3.0-0.5 MG/3 ML Neb Soln NEB ONE (14:39)
[2017-08-31 16:30] VITALS: BP 124/63
--- NOTE | 2017-09-03 13:04 | CR ---
INDICATION: Short of breath. CHEST: An AP upright view of the chest was obtained 08/31/2017, and compared with 11/26/2016 and 09/29/2016. The heart appears enlarged with tortuous aorta calcified in the arch area. A large fixed hiatal hernia is again noted. Overlying artifact and motion unsharpness are noted, with no definite active infiltrate or effusion identified. No definite evidence of CHF is seen. IMPRESSION: 1. No definite acute process. 2. ASHD with cardiomegaly, cannot exclude pericardial effusion. 3. Large fixed hiatal hernia. MTDD
--- NOTE | 2017-09-04 15:31 | ER ---
DATE SEEN: 08/31/2017 CHIEF COMPLAINT: Cough and shortness of breath. HISTORY OF PRESENT ILLNESS: This 77-year-old woman has had previous large documented hiatus hernia, heart failure, DVT, gastritis, erosive esophagitis, and Marques's esophagus by biopsy. PAST MEDICAL HISTORY: Mild dyspnea on exertion, increasing shortness of breath for the last 3 days. ALLERGIES: Codeine. MEDICATIONS: 1. Tramadol. 2. Phenytoin. 3. Dilantin (she does not know why she is taking dilantin). 4. Omeprazole. 5. Namenda (dementia). 6. Iron sulfate. 7. Calcium carbonate. 8. Vitamin D. 9. Beclomethasone dipropionate-Qvar 80 mcg. 10.Aspirin. 11.Albuterol. 12.Acetaminophen Extra Strength. REVIEW OF SYSTEMS: Negative. She notes she has swelling of her ankles. Normally, she does not travel long distance, not been lying in bed. Denies having previous history of DVT. PHYSICAL EXAMINATION: HEENT: Without abnormality. TMs negative. Pharynx without abnormality. GENERAL: Overweight. Pleasant woman. Mild tachypneic. VITAL SIGNS: Respiratory rate 24, oxygen saturation 93% on 2 L. Blood pressure 146/90, 76 heart rate and regular. LUNGS: No accessory muscle of breathing. Rales heard in the lungs bilaterally. HEART: S1, I occasional irregular beats suggesting sinus arrhythmia, but did not suggest atrial fibrillation. ABDOMEN: Soft. No guarding. No abdominal discomfort. EXTREMITIES: Without pedal edema. No tenderness of vascular structures in lower extremities. IMAGING: On EKG, sinus rhythm with low voltage with poor R wave progression across the anterior precordials suggesting possibly old septal infarct. Because of the patient's elevated D-dimer and her shortness of breath and cough, PE study was performed, which demonstrated pneumonia, right middle lobe, right lower lobe, with atelectasis consistent with pneumonia. Also pneumonia of the lingula, infiltrate. 1. The patient will not be treated as pneumonia - even though ct was read as pneumonia her lab s test do not suggest pneumonia. 2. She does not have a PE. 3. Continue with omeprazole, but can be increased to twice a day for 2 weeks and then go back to daily, because she has such a large hiatus hernia in her abdomen. She had a plain chest x-ray that demonstrated large hiatus hernia. On this basis, it was felt that she has exacerbation of her hiatus hernia with the symptoms. I am not planning to treat with antibiotics. DIAGNOSES: Marques's esophagitis with large hiatus hernia with exacerbation of symptoms and shortness of breath secondary to large hiatus hernia. PLAN: Double her Pepcid dose for 2 weeks and then going back to one Pepcid dose 20 mg daily. Follow up with her doctor in a week. /[id number] ROSSI/KALEIGH MTDD
== END 2017-08-31 17:56 | disposition home or self-care (01) ==
LOC: FB.ED 14:18
DX: K22.70 Barrett's esophagus without dysplasia (principal); K44.9 Diaphragmatic hernia without obstruction or gangrene; I50.9 Heart failure, unspecified; Z88.5 Allergy status to narcotic agent
CPT/HCPCS: 36415; 71045; 80053; 84484; 85025; 85379; 93005; 94640; 96374; 99285; J1940; J7620

== ENCOUNTER 2017-09-03 04:03 | Emergency (ER) | payer MEDICARE, BC ==
[2017-09-03] MEDS ORDERED: Albuterol/Ipratropium 3.0-0.5 MG/3 ML Neb Soln ONE (04:16)
[2017-09-03] MEDS ORDERED: Albuterol/Ipratropium 3.0-0.5 MG/3 ML Neb Soln NEB ONE (04:33)
--- NOTE | 2017-09-03 04:36 | EDM.PDOC ---
ED HPI GENERAL MEDICAL PROBLEM - General Chief Complaint: Respiratory Problem Stated Complaint: SOB Time Seen by Provider: 09/03/17 04:03 Source of Information: Reports: Patient, Family History Limitations: Reports: Respiratory Distress - History of Present Illness INITIAL COMMENTS - FREE TEXT/NARRATIVE: 77 y.o.w.f with multiple medical issues, came with her SO to the ed because she woke up at 3 am with SOB. Pt was seen here in the ed on 08/31/2017 for same and had a complete w/u. Pt denied N/V/D, dizziness, no other acute medical issues. BP 163/107 RR 30 Pulse ox 93% on RA temp 35.9 HR 95%. Onset Date: 09/03/17 Onset Time: 03:00 Duration: Hour(s): Location: Reports: Chest Quality: Reports: Same as Previous Episode Severity: Moderate Improves with: Reports: Medication Worsens with: Reports: Movement Context: Reports: Other (H/O asthma, woke up with SOB) - Related Data Allergies Allergy/AdvReac Type Severity Reaction Status Date / Time codeine Allergy Severe angioedema Verified 09/03/17 04:44 Home Meds: Home Meds Acetaminophen [Tylenol Extra Strength] 1,000 mg PO Q6H PRN 09/19/16 [History] Albuterol [Proventil Neb Soln] 2.5 mg INH QID PRN 09/19/16 [History] Beclomethasone Dipropionate [Qvar 80 Mcg] 2 puff INH BID 09/19/16 [History] Calcium Carbonate/Vitamin D3 [Calcium 600 + Vit D 200] 1 each PO BID 09/19/16 [ History] Ferrous Sulfate 325 mg PO DAILY 09/19/16 [History] Omeprazole 20 mg PO DAILY 09/19/16 [History] Phenytoin Sodium Extended [Dilantin] 100 mg PO BID 09/19/16 [History] Memantine [Namenda] 10 mg PO DAILY 11/26/16 [History] Aspirin [Ecotrin] 81 mg PO DAILY 01/17/17 [History] traMADol [Ultram] 50 mg PO Q4H PRN #14 tab 01/17/17 [Rx] Past Medical History - Past Health History Medical/Surgical History: Denies Medical/Surgical History HEENT History: Reports: None, Cataract Other HEENT History: Wears glasses usually. Cardiovascular History: Reports: Blood Clots/VTE/DVT, Other (See Below) Other Cardiovascular History: EDEMA Respiratory History: Reports: Pneumonia, Recurrent Other Respiratory History: COUGH, DIAPHRAGMATIC HERNIA Gastrointestinal History: Reports: Gastritis, GERD, Hiatal Hernia, PUD, Other ( See Below) Other Gastrointestinal History: GASTRODUODENITIS, BARRETTS ESOPHAGUS Genitourinary History: Reports: None Musculoskeletal History: Reports: Osteoporosis, Other (See Below) Other Musculoskeletal History: ANKLE SPRAIN Neurological History: Reports: Seizure Other Neuro History: Epilepsy. Endocrine/Metabolic History: Hematologic History: Reports: Anemia Other Hematologic History: Denies any past history of anemia. - Infectious Disease History Infectious Disease History: Reports: Chicken Pox, Rubella - Past Surgical History HEENT Surgical History: Reports: None GI Surgical History: Reports: EGD, Hernia Repair/Other, Other (See Below) Social & Family History - Family History Family Medical History: Noncontributory - Tobacco Use Smoking Status *Q: Never Smoker Used Tobacco, but Quit: No Month/Year Tobacco Last Used: unknown Second Hand Smoke Exposure: No - Caffeine Use Caffeine Use: Reports: Coffee - Alcohol Use Days Per Week of Alcohol Use: 0 - Recreational Drug Use Recreational Drug Use: No ED ROS GENERAL - Review of Systems Review Of Systems: See Below Constitutional: Reports: No Symptoms HEENT: Reports: No Symptoms Respiratory: Reports: Shortness of Breath Cardiovascular: Reports: No Symptoms Endocrine: Reports: No Symptoms GI/Abdominal: Reports: No Symptoms : Reports: No Symptoms Musculoskeletal: Reports: No Symptoms Skin: Reports: No Symptoms Neurological: Reports: No Symptoms Psychiatric: Reports: No Symptoms Hematologic/Lymphatic: Reports: No Symptoms Immunologic: Reports: No Symptoms ED EXAM, GENERAL - Physical Exam Exam: See Below Exam Limited By: Respiratory Distress General Appearance: Alert, Thin Eye Exam: Bilateral Eye: Normal Inspection Ears: Normal External Exam Ear Exam: Bilateral Ear: Auricle Normal Nose: Normal Inspection Throat/Mouth: Normal Lips, No Airway Compromise Head: Atraumatic, Normocephalic Neck: Normal Inspection, Supple, Non-Tender Respiratory/Chest: Respiratory Distress, Wheezing (expiratory) Cardiovascular: Normal Peripheral Pulses, Regular Rate, Rhythm, No Edema GI/Abdominal: Normal Bowel Sounds, Soft, Non-Tender (Female) Exam: Deferred Rectal (Female) Exam: Deferred Back Exam: Normal Inspection Extremities: Normal Inspection, Normal Range of Motion Neurological: Alert, Oriented, CN II-XII Intact, Normal Cognition Psychiatric: Normal Affect, Normal Mood Skin Exam: Warm, Dry, Intact, Normal Color, No Rash Lymphatic: No Adenopathy Course - Vital Signs Text/Narrative:: 77 y.o.w.f with multiple medical issues, came with her SO to the ed because she woke up at 3 am with SOB. Pt was seen here in the ed on 08/31/2017 for same and had a complete w/u. Pt denied N/V/D, dizziness, no other acute medical issues. BP 163/107 RR 30 Pulse ox 93% on RA temp 35.9 HR 95%. PE: Thin 77 y.o.w.f with SOB, exp. wheezes CXR: 08/31/2017: NAD Labs: 08/31/2017: NL wbc Impression: Asthma attack Tx:Duoneb Reexam: Pt did fine, her Pulse ox stayed above 95% on RA, she was ambulating fine and requested to be discharged. Plan: D/C with instructions Last Recorded V/S: Last Vital Signs Temp 35.8 C 09/03/17 04:10 Pulse Resp 24 H 09/03/17 04:30 BP 131/89 09/03/17 04:30 Pulse Ox 95 09/03/17 04:30 - Orders/Labs/Meds Orders: Active Orders 24 hr Category Date Time Status RT Aerosol Therapy [RC] ASDIRECTED Care 09/03/17 04:33 Active Meds: Medications Discontinued Medications Generic Name Dose Route Start Last Admin Trade Name Dakotah PRN Reason Stop Dose Admin Albuterol/Ipratropium Confirm 09/03/17 04:16 09/03/17 04:37 Duoneb 3.0-0.5 Mg/3 Ml Administered 09/03/17 04:17 Not Given Dose 3 ml .ROUTE .STK-MED ONE Albuterol/Ipratropium 3 ml 09/03/17 04:33 09/03/17 04:22 Duoneb 3.0-0.5 Mg/3 Ml NEB 09/03/17 04:34 3 ml ONETIME ONE Administration Departure - Departure Time of Disposition: 04:59 Disposition: Home, Self-Care 01 Condition: Good Clinical Impression: Asthma attack - Discharge Information Referrals: Bashir Lopez MD [Primary Care Provider] - Forms: ED Department Discharge Additional Instructions: Please continue your current meds, please f/u, please come back to the ED if your symptoms get worse acutely. - My Orders Last 24 Hours: My Active Orders 09/03/17 04:33 RT Aerosol Therapy [RC] ASDIRECTED - Assessment/Plan Last 24 Hours: My Active Orders 09/03/17 04:33 RT Aerosol Therapy [RC] ASDIRECTED
[2017-09-03 05:43] VITALS: BP 135/84
== END 2017-09-03 05:08 | disposition home or self-care (01) ==
LOC: FB.ED 04:03
DX: J45.909 Unspecified asthma, uncomplicated (principal); Z88.5 Allergy status to narcotic agent; Z79.82 Long term (current) use of aspirin; Z79.899 Other long term (current) drug therapy
CPT/HCPCS: 94640; 99284; J7620

== ENCOUNTER 2017-09-08 21:45 | Inpatient (IN) | payer MEDICARE, BC ==
[2017-09-08] MEDS ORDERED: Diphtheria,Pertussis(Acell),Tetanus Vaccine 0.5 ML SDV IM ONE (21:52)
[2017-09-08] MEDS ORDERED: Acetaminophen/HYDROcodone 325-5 MG Tab PO ONE (22:50)
--- NOTE | 2017-09-08 23:00 | EDM.PDOC ---
ED HPI GENERAL MEDICAL PROBLEM - General Chief Complaint: General Stated Complaint: FALL/HEAD LAC Time Seen by Provider: 09/08/17 21:45 Source of Information: Reports: Patient, EMS, Family History Limitations: Reports: Physical Impairment - History of Present Illness INITIAL COMMENTS - FREE TEXT/NARRATIVE: 77 y.o.w.f came by EMS a few hours after she fell, c/o headache and pain at both wrists. Pt falls frequently, does not find her meds and does not remember her meds. 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 Pt says " i just fell an my forehead" Poor hygiene BP 124/78 Pulse 63 Temp 36.7 Onset Date: 09/08/17 Onset Time: 18:00 Duration: Hour(s): Location: Reports: Head, Upper Extremity, Left (wrist), Upper Extremity, Right ( wrist) Quality: Reports: Ache Severity: Moderate Improves with: Reports: Cold Therapy, Rest Worsens with: Reports: Movement Context: Reports: Trauma (fall) Right Wrist Pain Score (Numeric/FACES): 7 denies pain Pain Score (Numeric/FACES): 0 - Related Data Allergies Allergy/AdvReac Type Severity Reaction Status Date / Time codeine Allergy Severe angioedema Verified 09/09/17 00:16 aspirin Allergy Vomiting Verified 09/09/17 01:29 Home Meds: Home Meds Calcium Carbonate/Vitamin D3 [Calcium 600 + Vit D 200] 1 each PO DAILY 09/19/16 [History] Ferrous Sulfate 325 mg PO DAILY 09/19/16 [History] Omeprazole 20 mg PO DAILY 09/19/16 [History] traMADol [Ultram] 50 mg PO Q4H PRN #14 tab 01/17/17 [Rx] Acetaminophen [Tylenol Arthritis Pain] 650 mg PO Q8H PRN 09/09/17 [History] Benzonatate 200 mg PO TID PRN 09/09/17 [History] Donepezil [Aricept] 5 mg PO BEDTIME 09/09/17 [History] Ferrous Sulfate [Iron] 325 mg PO DAILY 09/09/17 [History] Meloxicam 7.5 mg PO Q12HR 09/09/17 [History] predniSONE [Prednisone] 20 mg PO BID 09/09/17 [History] Past Medical History - Past Health History Medical/Surgical History: Denies Medical/Surgical History HEENT History: Reports: None, Cataract Other HEENT History: Wears glasses usually. Cardiovascular History: Reports: Blood Clots/VTE/DVT, Other (See Below) Other Cardiovascular History: EDEMA Respiratory History: Reports: Pneumonia, Recurrent Other Respiratory History: COUGH, DIAPHRAGMATIC HERNIA Gastrointestinal History: Reports: Gastritis, GERD, Hiatal Hernia, PUD, Other ( See Below) Other Gastrointestinal History: GASTRODUODENITIS, BARRETTS ESOPHAGUS Genitourinary History: Reports: None Musculoskeletal History: Reports: Osteoporosis, Other (See Below) Other Musculoskeletal History: ANKLE SPRAIN Neurological History: Reports: Seizure Other Neuro History: Epilepsy. Endocrine/Metabolic History: Hematologic History: Reports: Anemia Other Hematologic History: Denies any past history of anemia. - Infectious Disease History Infectious Disease History: Reports: Chicken Pox, Rubella - Past Surgical History HEENT Surgical History: Reports: None GI Surgical History: Reports: EGD, Hernia Repair/Other, Other (See Below) Social & Family History - Family History Family Medical History: Noncontributory - Tobacco Use Smoking Status *Q: Never Smoker Used Tobacco, but Quit: No Month/Year Tobacco Last Used: unknown Second Hand Smoke Exposure: No - Caffeine Use Caffeine Use: Reports: Coffee - Alcohol Use Days Per Week of Alcohol Use: 0 - Recreational Drug Use Recreational Drug Use: No ED ROS GENERAL - Review of Systems Review Of Systems: Unable To Obtain ED EXAM, GENERAL - Physical Exam Exam: See Below Exam Limited By: Physical Impairment General Appearance: Alert, Mild Distress, Thin Eye Exam: Bilateral Eye: Normal Inspection Ears: Normal External Exam Ear Exam: Bilateral Ear: Auricle Normal Nose: Normal Inspection, Normal Mucosa, No Blood Throat/Mouth: Normal Lips, Normal Voice, No Airway Compromise Head: Other (LACERATION left forehead) Neck: Normal Inspection, Supple, Non-Tender, Limited Range of Motion Respiratory/Chest: No Respiratory Distress, Lungs Clear, Decreased Breath Sounds (poor insp effort) Cardiovascular: Normal Peripheral Pulses, Regular Rate, Rhythm Peripheral Pulses: 1+: Brachial (R) GI/Abdominal: Normal Bowel Sounds, Soft, Non-Tender, No Organomegaly, No Abnormal Bruit, No Mass (Female) Exam: Deferred Rectal (Female) Exam: Deferred Back Exam: Normal Inspection, Full Range of Motion Extremities: Joint Swelling (deformity), Arm Pain, Limited Range of Motion Neurological: Alert, Oriented, CN II-XII Intact Psychiatric: Depressed Mood Skin Exam: Warm, Dry, Normal Color, No Rash, Wound/Incision (Laceration left forehead, repaired in the ED.) Lymphatic: No Adenopathy ED GENERAL MEDICAL PROCEDURES - Laceration/Wound Repair Left Forehead Lac/wound length in cm: 1 Appearance: Linear, Clean Distal NVT: Neuro & Vascular Intact, No Tendon Injury Anesthetic Type: Local Local Anesthesia - Bupivicaine (Marcaine): 0.5% Plain Local Anesthetic Volume: 2cc Skin Prep: Chlorhexidine (Hibiciens) Saline irrigation (cc's): 2 Exploration/Debridement/Repair: Wound Explored, In a Bloodless Field, Explored to Base Closed with: Sutures Suture Size: 4-0 # of Sutures: 1 Suture Type: Other (ethilon) Drain Placement: No Sterile Dressing Applied: Nurse Tetanus Status Addressed: Yes (given today) Complications: No Course - Vital Signs Text/Narrative:: 77 y.o.w.f came by EMS a few hours after she fell, c/o headache and pain at both wrists. Pt falls frequently, does not find her meds and does not remember her meds. 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 Pt says " i just fell an my forehead" Poor hygiene BP 124/78 Pulse 63 Temp 36.7 PE: Cachectic 77 y.o w f in poor hygiene came to the ed after she fell at home onto her face, has bilt wrst deformity/pain Imaging: CT head: NAD X Ray amaury wrist: Severe osteoarthritis, no Fx as per RAD Labs: CBC nl BUN 27 Cr 0.9 BUN/CR 30 Impression: Frequent falls (DDX vasovagal syncope) severe osteoarthritis on both wrists, Lac left forehead. Weakness. vulnerable adult, UTI, Severe Dehydration. Poor hygiene Tx: Vicodin, wound care left forehead, TD, Levaquin, ICE, NS Reexam: Improved, appears, unable take care of his Plan: Admit to bedolla. Pt was in sinus rhythm sonny in the ED, No tele nurse Last Recorded V/S: Last Vital Signs Temp 36.4 C 09/10/17 13:30 Pulse 66 09/10/17 13:30 Resp 18 09/10/17 13:30 BP 136/86 09/10/17 13:30 Pulse Ox 94 L 09/10/17 13:30 - Orders/Labs/Meds Orders: Active Orders 24 hr Category Date Time Status PRO B-TYPE NATRIUR PEPT,BNPPRO [CHEM] DAILY Lab 09/11/17 05:11 Ordered Medication Orders Acetaminophen (Tylenol Arthritis Pain) 650 mg PO Q8H PRN PRN Reason: Pain Hydrocodone Bitart/Acetaminophen ([place] 325-5 Mg) 1 tab PO Q4H PRN PRN Reason: Pain Last Admin: 09/09/17 04:34 Dose: 1 tab Albuterol/Ipratropium (Duoneb 3.0-0.5 Mg/3 Ml) 3 ml NEB Q4H PRN PRN Reason: Wheezing Aspirin (Halfprin) 81 mg PO DAILY [facility] Last Admin: 09/10/17 08:55 Dose: Not Given Admin: 09/09/17 11:24 Dose: Donepezil HCl (Aricept) 5 mg PO BEDTIME [facility] Last Admin: 09/09/17 20:56 Dose: 5 mg Enoxaparin Sodium (Lovenox) 30 mg SUBCUT Q24H [facility] Last Admin: 09/09/17 15:39 Dose: 30 mg Ferrous Sulfate (Ferrous Sulfate) 325 mg PO DAILY [facility] Last Admin: 09/10/17 08:55 Dose: 325 mg Admin: 09/09/17 11:24 Dose: 325 mg Lorazepam (Ativan) 0.5 mg IVPUSH BEDTIME PRN PRN Reason: Anxiety Melatonin (Melatonin) 3 mg PO BEDTIME [facility] Last Admin: 09/09/17 20:57 Dose: 3 mg Memantine (Namenda) 10 mg PO DAILY [facility] Last Admin: 09/10/17 08:55 Dose: 10 mg Ondansetron HCl (Zofran) 4 mg IV Q4H PRN PRN Reason: Nausea/Vomiting Pantoprazole Sodium (Protonix) 40 mg PO ACBREAKFAST [facility] Last Admin: 09/10/17 08:55 Dose: 40 mg Admin: 09/09/17 11:24 Dose: 40 mg Prednisone (Prednisone) 20 mg PO BID [facility] Last Admin: 09/10/17 08:55 Dose: 20 mg Admin: 09/09/17 20:57 Dose: 20 mg Sodium Chloride (Saline Flush) 10 ml FLUSH ASDIRECTED PRN PRN Reason: Keep Vein Open Labs: Laboratory Tests 09/08/17 09/08/17 09/08/17 Range/Units 22:00 22:00 22:00 WBC 7.7 (4.5-12.0) X10-3/uL RBC 4.38 (3.23-5.20) x10(6)uL Hgb 12.9 (11.5-15.5) g/dL Hct 38.8 (30.0-51.3) % MCV 88.6 (80-96) fL MCH 29.4 (27.7-33.6) pg MCHC 33.2 (32.2-35.4) g/dL RDW 13.5 (11.5-15.5) % Plt Count 169 (125-369) X10(3)uL MPV 8.0 (7.4-10.4) fL Neut % (Auto) 61.7 (46-82) % Lymph % (Auto) 19.7 (13-37) % [place] % (Auto) 7.9 (4-12) % Eos % (Auto) 10 H (1.0-5.0) % Baso % (Auto) 1 (0-2) % Neut # (Auto) 4.7 (1.6-8.3) # Lymph # (Auto) 1.5 (0.6-5.0) # [place] # (Auto) 0.6 (0.0-1.3) # Eos # (Auto) 0.8 (0.0-0.8) # Baso # (Auto) 0.1 (0.0-0.2) # PT 11.1 (8.7-11.1) INR 1.10 (0.89-1.13) Sodium 141 (135-145) mmol/L Potassium 4.4 (3.5-5.3) mmol/L Chloride 106 (100-110) mmol/L Carbon Dioxide 28 (21-32) mmol/L BUN 27 H (7-18) mg/dL Creatinine 0.9 (0.55-1.02) mg/dL Est Cr Clr Drug Dosing TNP Estimated GFR (MDRD) > 60 (>60) BUN/Creatinine Ratio 30.0 H (9-20) Glucose 108 (80-116) mg/dL Calcium 8.5 L (8.6-10.2) mg/dL Urine Color (YELLOW) Urine Appearance (CLEAR) Urine pH (5.0-6.5) Ur Specific [place] (1.010-1.025) Urine Protein (NEGATIVE) mg/dL Urine Glucose (UA) (NEGATIVE) mg/dL Urine Ketones (NEGATIVE) mg/dL Urine Occult Blood (NEGATIVE) Urine Nitrite (NEGATIVE) Urine Bilirubin (NEGATIVE) Urine Urobilinogen (NEGATIVE) mg/dL Ur Leukocyte Esterase (NEGATIVE) Urine RBC (0) Urine WBC (0) Ur Squamous Epith Cells (NS,R,O) Urine Bacteria (NS) Phenytoin 25.9 H (10.0-20.0) ug/mL 09/08/17 Range/Units 22:45 WBC (4.5-12.0) X10-3/uL RBC (3.23-5.20) x10(6)uL Hgb (11.5-15.5) g/dL Hct (30.0-51.3) % MCV (80-96) fL MCH (27.7-33.6) pg MCHC (32.2-35.4) g/dL RDW (11.5-15.5) % Plt Count (125-369) X10(3)uL MPV (7.4-10.4) fL Neut % (Auto) (46-82) % Lymph % (Auto) (13-37) % [place] % (Auto) (4-12) % Eos % (Auto) (1.0-5.0) % Baso % (Auto) (0-2) % Neut # (Auto) (1.6-8.3) # Lymph # (Auto) (0.6-5.0) # [place] # (Auto) (0.0-1.3) # Eos # (Auto) (0.0-0.8) # Baso # (Auto) (0.0-0.2) # PT (8.7-11.1) INR (0.89-1.13) Sodium (135-145) mmol/L Potassium (3.5-5.3) mmol/L Chloride (100-110) mmol/L Carbon Dioxide (21-32) mmol/L BUN (7-18) mg/dL Creatinine (0.55-1.02) mg/dL Est Cr Clr Drug Dosing Estimated GFR (MDRD) (>60) BUN/Creatinine Ratio (9-20) Glucose (80-116) mg/dL Calcium (8.6-10.2) mg/dL Urine Color Yellow (YELLOW) Urine Appearance Cloudy (CLEAR) Urine pH 5.0 (5.0-6.5) Ur Specific [place] 1.025 (1.010-1.025) Urine Protein Trace (NEGATIVE) mg/dL Urine Glucose (UA) Normal (NEGATIVE) mg/dL Urine Ketones Negative (NEGATIVE) mg/dL Urine Occult Blood Negative (NEGATIVE) Urine Nitrite Positive H (NEGATIVE) Urine Bilirubin Negative (NEGATIVE) Urine Urobilinogen Normal (NEGATIVE) mg/dL Ur Leukocyte Esterase Large H (NEGATIVE) Urine RBC 0-5 (0) Urine WBC 10-20 H (0) Ur Squamous Epith Cells Occasional (NS,R,O) Urine Bacteria Many H (NS) Phenytoin (10.0-20.0) ug/mL Meds: Medications Generic Name Dose Route Start Last Admin Trade Name Freq PRN Reason Stop Dose Admin Acetaminophen 650 mg 09/09/17 13:33 Tylenol Arthritis Pain PO Q8H PRN Pain Hydrocodone Bitart/Acetaminophen 1 tab 09/09/17 04:20 09/09/17 04:34 [place] 325-5 Mg PO 1 tab Q4H PRN Administration Pain Albuterol/Ipratropium 3 ml 09/09/17 08:59 Duoneb 3.0-0.5 Mg/3 Ml NEB Q4H PRN Wheezing Aspirin 81 mg 09/09/17 09:00 09/10/17 08:55 Halfprin PO Not Given DAILY DOTTIE Donepezil HCl 5 mg 09/09/17 21:00 09/09/17 20:56 Aricept PO 5 mg BEDTIME DOTTIE Administration Enoxaparin Sodium 30 mg 09/09/17 16:00 09/09/17 15:39 Lovenox SUBCUT 30 mg Q24H DOTTIE Administration Ferrous Sulfate 325 mg 09/09/17 09:00 09/10/17 08:55 Ferrous Sulfate PO 325 mg DAILY DOTTIE Administration Lorazepam 0.5 mg 09/09/17 00:40 Ativan IVPUSH BEDTIME PRN Anxiety Melatonin 3 mg 09/09/17 21:00 09/09/17 20:57 Melatonin PO 3 mg BEDTIME DOTTIE Administration Memantine 10 mg 09/09/17 09:00 09/10/17 08:55 Namenda PO 10 mg DAILY DOTTIE Administration Ondansetron HCl 4 mg 09/08/17 23:16 Zofran IV Q4H PRN Nausea/Vomiting Pantoprazole Sodium 40 mg 09/09/17 10:00 09/10/17 08:55 Protonix PO 40 mg ACBREAKFAST DOTTIE Administration Prednisone 20 mg 09/09/17 21:00 09/10/17 08:55 Prednisone PO 20 mg BID DOTTIE Administration Sodium Chloride 10 ml 09/08/17 23:16 Saline Flush FLUSH ASDIRECTED PRN Keep Vein Open Discontinued Medications Generic Name Dose Route Start Last Admin Trade Name Freq PRN Reason Stop Dose Admin Acetaminophen 1,000 mg 09/09/17 09:00 Tylenol Extra Strength PO Q6H PRN Pain Hydrocodone Bitart/Acetaminophen 1 tab 09/08/17 22:50 09/08/17 22:53 [place] 325-5 Mg PO 09/08/17 22:51 1 tab ONETIME ONE Administration Albuterol/Ipratropium 3 ml 09/09/17 07:52 09/09/17 08:00 Duoneb 3.0-0.5 Mg/3 Ml NEB 09/09/17 07:53 3 ml ONETIME ONE Administration Albuterol/Ipratropium Confirm 09/09/17 07:57 09/09/17 08:05 Duoneb 3.0-0.5 Mg/3 Ml Administered 09/09/17 07:58 Not Given Dose 3 ml .ROUTE .STK-MED ONE Beclomethasone Dipropionate 0 gm 09/09/17 09:00 09/09/17 11:24 Qvar 80 Mcg INH Not Given BID DOTTIE Bupivacaine HCl 2 ml 09/08/17 23:55 Marcaine 0.5% INFILT 09/08/17 23:56 .STK-MED ONE Diphtheria/Tetanus/Acell Pertussis 0.5 ml 09/08/17 21:52 09/08/17 22:49 Adacel IM 09/08/17 21:53 0.5 ml .ONCE ONE Administration Sodium Chloride 1,000 mls @ 125 mls/hr 09/08/17 23:39 09/09/17 04:33 Normal Saline IV 09/09/17 07:38 125 mls/hr ASDIRECTED STA Administration Sodium Chloride 500 mls @ 999 mls/hr 09/09/17 00:38 09/09/17 01:05 Normal Saline IV 09/09/17 01:08 999 mls/hr .BOLUS ONE Administration Ketorolac Tromethamine 15 mg 09/09/17 00:40 09/09/17 00:48 Toradol IVPUSH 09/09/17 00:41 15 mg ONETIME ONE Administration Levofloxacin 500 mg 09/08/17 23:02 09/09/17 00:13 Levaquin PO 09/08/17 23:03 500 mg ONETIME STA Administration Levofloxacin Confirm 09/09/17 00:11 09/09/17 00:29 Levaquin Administered 09/09/17 00:12 Not Given Dose 500 mg .ROUTE .STK-MED ONE Memantine 10 mg 09/09/17 15:00 09/09/17 15:36 Namenda PO 09/09/17 15:01 10 mg ONETIME ONE Administration Morphine Sulfate 2 mg 09/08/17 23:16 Morphine IVPUSH Q2H PRN Pain (severe 7-10) Departure - Departure Time of Disposition: 01:00 Disposition: Admitted As Inpatient 64 Condition: Fair Clinical Impression: Frequent falls - Discharge Information
[2017-09-08] MEDS ORDERED: Levofloxacin 250 MG Tab PO STA (23:02)
[2017-09-08] MEDS ORDERED: Morphine 2 MG/ML Syringe IVPUSH PRN (23:16)
[2017-09-08] MEDS ORDERED: Sodium Chloride 0.9% 10 ML Syringe FLUSH PRN (23:16)
[2017-09-08] MEDS ORDERED: Ondansetron 4 MG/2 ML SDV IV PRN (23:16)
[2017-09-08] MEDS ORDERED: Bupivacaine 0.5% 50 ML MDV INFILT ONE (23:55)
[2017-09-09] MEDS ORDERED: Levofloxacin 500 MG Tab ONE (00:11)
[2017-09-09] MEDS: Sodium Chloride 0.9% 1,000 ML IV STA ×2 (00:27→04:33)
[2017-09-09] MEDS ORDERED: Sodium Chloride 0.9% 500 ML IV ONE (00:38)
[2017-09-09] MEDS ORDERED: LORazepam 2 MG/ML SDV IVPUSH PRN (00:40)
[2017-09-09] MEDS ORDERED: Ketorolac 30 MG/ML SDV IVPUSH ONE (00:40)
[2017-09-09] MEDS ORDERED: Acetaminophen/HYDROcodone 325-5 MG Tab PO PRN (04:20)
[2017-09-09] MEDS ORDERED: Albuterol/Ipratropium 3.0-0.5 MG/3 ML Neb Soln NEB ONE (07:52)
[2017-09-09] MEDS ORDERED: Albuterol/Ipratropium 3.0-0.5 MG/3 ML Neb Soln ONE (07:57)
[2017-09-09] MEDS ORDERED: Albuterol/Ipratropium 3.0-0.5 MG/3 ML Neb Soln NEB PRN (08:59)
[2017-09-09] MEDS ORDERED: BECLOMETHASONE DIPROPIONATE INH SCH (09:00)
[2017-09-09] MEDS ORDERED: Acetaminophen 500 MG Tab PO PRN (09:00)
--- NOTE | 2017-09-09 09:06 | PCM.HP ---
H&P History of Present Illness - General Date of Service: 09/09/17 Admit Problem/Dx: Admission Diagnosis/Problem Admission Diagnosis/Problem Fall Source of Information: Patient, Old Records - History of Present Illness Initial Comments - Free Text/Narative: Franco is a 77-year-old female well-known to me. She came to the ER after she fell and hit her head. There is no report of the fall weakness, eventually called ambulance which brought her here. She is confused,making history taking is difficult. The is not a good historian either. Eloise has a history of asthma that is well-controlled, a remote history of seizure disorder, but has not had any seizure pneumonia in 40 years. She also has a history of dementia recently diagnosed ,associated with insomnia and has been taking Aricept. In the ER she was devoted to the CT scan was apparently negative, laceration pad above the left eyebrow. She was put on oxygen because of hypoxia. Last week she had a bronchitis which was treated substance and pulse and prednisone. It's unclear what other medication she's taking and follow Right Wrist Pain Score (Numeric/FACES): 7 denies pain Pain Score (Numeric/FACES): 0 - Related Data Allergies/Adverse Reactions: Allergies Allergy/AdvReac Type Severity Reaction Status Date / Time codeine Allergy Severe angioedema Verified 09/09/17 00:16 aspirin Allergy Vomiting Verified 09/09/17 01:29 Home Medications: Home Meds Calcium Carbonate/Vitamin D3 [Calcium 600 + Vit D 200] 1 each PO DAILY 09/19/16 [History] Ferrous Sulfate 325 mg PO DAILY 09/19/16 [History] Omeprazole 20 mg PO DAILY 09/19/16 [History] traMADol [Ultram] 50 mg PO Q4H PRN #14 tab 01/17/17 [Rx] Acetaminophen [Tylenol Arthritis Pain] 650 mg PO Q8H PRN 09/09/17 [History] Benzonatate 200 mg PO TID PRN 09/09/17 [History] Donepezil [Aricept] 5 mg PO BEDTIME 09/09/17 [History] Ferrous Sulfate [Iron] 325 mg PO DAILY 09/09/17 [History] Meloxicam 7.5 mg PO Q12HR 09/09/17 [History] predniSONE [Prednisone] 20 mg PO BID 09/09/17 [History] Past Medical History - Past Health History Medical/Surgical History: Denies Medical/Surgical History HEENT History: Reports: None, Cataract Other HEENT History: Wears glasses usually. Cardiovascular History: Reports: Blood Clots/VTE/DVT, Other (See Below) Other Cardiovascular History: EDEMA Respiratory History: Reports: Pneumonia, Recurrent Other Respiratory History: COUGH, DIAPHRAGMATIC HERNIA Gastrointestinal History: Reports: Gastritis, GERD, Hiatal Hernia, PUD, Other ( See Below) Other Gastrointestinal History: GASTRODUODENITIS, BARRETTS ESOPHAGUS Genitourinary History: Reports: None Musculoskeletal History: Reports: Osteoporosis, Other (See Below) Other Musculoskeletal History: ANKLE SPRAIN Neurological History: Reports: Seizure Other Neuro History: Epilepsy. Endocrine/Metabolic History: Hematologic History: Reports: Anemia Other Hematologic History: Denies any past history of anemia. Dermatologic History: Reports: Other (See Below) Other Dermatologic History: Skin toned lump on left forehead, approximately 1 inch diameter. explains she's had this since childhood. - Infectious Disease History Infectious Disease History: Reports: Chicken Pox, Rubella - Past Surgical History HEENT Surgical History: Reports: None GI Surgical History: Reports: EGD, Hernia Repair/Other, Other (See Below) Social & Family History - Family History Family Medical History: Noncontributory - Tobacco Use Smoking Status *Q: Never Smoker Used Tobacco, but Quit: No Month/Year Tobacco Last Used: unknown Second Hand Smoke Exposure: No - Caffeine Use Caffeine Use: Reports: Coffee - Alcohol Use Days Per Week of Alcohol Use: 0 - Recreational Drug Use Recreational Drug Use: No H&P Review of Systems - Review of Systems: Review Of Systems: ROS reveals no pertinent complaints other than HPI. Exam - Exam Exam: See Below - Vital Signs Vital Signs: Last Vital Signs Temp 97.4 F 09/09/17 08:21 Pulse 74 09/09/17 08:21 Resp 28 H 09/09/17 08:21 BP 118/64 09/09/17 08:21 Pulse Ox 94 L 09/09/17 08:22 Weight: 61.235 kg - Exam Quality Assessment: Supplemental Oxygen General: Alert, Cooperative, Mild Distress. No: Oriented HEENT: PERRLA, Conjunctiva Clear, EACs Clear, EOMI, Hearing Intact, Mucosa Moist & [place], Nares Patent, Normal Nasal Septum, Posterior Pharynx Clear, TMs Clear, Other (Head laceration,repaired) Neck: Supple Lungs: Rhonchi, Wheezing. No: Normal Respiratory Effort Cardiovascular: Regular Rate, Irregular Rhythm GI/Abdominal Exam: Soft (Female) Exam: Deferred Rectal (Female) Exam: Deferred Back Exam: Normal Inspection, Full Range of Motion, NT Extremities: Normal Inspection, Normal Range of Motion, Non-Tender, No Pedal Edema, Normal Capillary Refill Skin: Warm, Dry, Intact Neurological: Cranial Nerves Intact, Reflexes Equal Bilateral Neuro Extensive - Mental Status: Alert, Oriented x3, Normal Mood/Affect, Normal Cognition Neuro Extensive - Motor, Sensory, Reflexes: CN II-XII Intact, Normal Gait, Normal Reflexes Psychiatric: Normal Affect - Patient Data Lab Results Last 24 hrs: Laboratory Results - last 24 hr 09/08/17 09/08/17 09/08/17 Range/Units 22:00 22:00 22:00 WBC 7.7 (4.5-12.0) X10-3/uL RBC 4.38 (3.23-5.20) x10(6)uL Hgb 12.9 (11.5-15.5) g/dL Hct 38.8 (30.0-51.3) % MCV 88.6 (80-96) fL MCH 29.4 (27.7-33.6) pg MCHC 33.2 (32.2-35.4) g/dL RDW 13.5 (11.5-15.5) % Plt Count 169 (125-369) X10(3)uL MPV 8.0 (7.4-10.4) fL Neut % (Auto) 61.7 (46-82) % Lymph % (Auto) 19.7 (13-37) % [place] % (Auto) 7.9 (4-12) % Eos % (Auto) 10 H (1.0-5.0) % Baso % (Auto) 1 (0-2) % Neut # (Auto) 4.7 (1.6-8.3) # Lymph # (Auto) 1.5 (0.6-5.0) # [place] # (Auto) 0.6 (0.0-1.3) # Eos # (Auto) 0.8 (0.0-0.8) # Baso # (Auto) 0.1 (0.0-0.2) # PT 11.1 (8.7-11.1) INR 1.10 (0.89-1.13) Sodium 141 (135-145) mmol/L Potassium 4.4 (3.5-5.3) mmol/L Chloride 106 (100-110) mmol/L Carbon Dioxide 28 (21-32) mmol/L BUN 27 H (7-18) mg/dL Creatinine 0.9 (0.55-1.02) mg/dL Est Cr Clr Drug Dosing TNP Estimated GFR (MDRD) > 60 (>60) BUN/Creatinine Ratio 30.0 H (9-20) Glucose 108 (80-116) mg/dL Calcium 8.5 L (8.6-10.2) mg/dL Urine Color (YELLOW) Urine Appearance (CLEAR) Urine pH (5.0-6.5) Ur Specific [place] (1.010-1.025) Urine Protein (NEGATIVE) mg/dL Urine Glucose (UA) (NEGATIVE) mg/dL Urine Ketones (NEGATIVE) mg/dL Urine Occult Blood (NEGATIVE) Urine Nitrite (NEGATIVE) Urine Bilirubin (NEGATIVE) Urine Urobilinogen (NEGATIVE) mg/dL Ur Leukocyte Esterase (NEGATIVE) Urine RBC (0) Urine WBC (0) Ur Squamous Epith Cells (NS,R,O) Urine Bacteria (NS) Phenytoin 25.9 H (10.0-20.0) ug/mL 09/08/17 Range/Units 22:45 WBC (4.5-12.0) X10-3/uL RBC (3.23-5.20) x10(6)uL Hgb (11.5-15.5) g/dL Hct (30.0-51.3) % MCV (80-96) fL MCH (27.7-33.6) pg MCHC (32.2-35.4) g/dL RDW (11.5-15.5) % Plt Count (125-369) X10(3)uL MPV (7.4-10.4) fL Neut % (Auto) (46-82) % Lymph % (Auto) (13-37) % [place] % (Auto) (4-12) % Eos % (Auto) (1.0-5.0) % Baso % (Auto) (0-2) % Neut # (Auto) (1.6-8.3) # Lymph # (Auto) (0.6-5.0) # [place] # (Auto) (0.0-1.3) # Eos # (Auto) (0.0-0.8) # Baso # (Auto) (0.0-0.2) # PT (8.7-11.1) INR (0.89-1.13) Sodium (135-145) mmol/L Potassium (3.5-5.3) mmol/L Chloride (100-110) mmol/L Carbon Dioxide (21-32) mmol/L BUN (7-18) mg/dL Creatinine (0.55-1.02) mg/dL Est Cr Clr Drug Dosing Estimated GFR (MDRD) (>60) BUN/Creatinine Ratio (9-20) Glucose (80-116) mg/dL Calcium (8.6-10.2) mg/dL Urine Color Yellow (YELLOW) Urine Appearance Cloudy (CLEAR) Urine pH 5.0 (5.0-6.5) Ur Specific [place] 1.025 (1.010-1.025) Urine Protein Trace (NEGATIVE) mg/dL Urine Glucose (UA) Normal (NEGATIVE) mg/dL Urine Ketones Negative (NEGATIVE) mg/dL Urine Occult Blood Negative (NEGATIVE) Urine Nitrite Positive H (NEGATIVE) Urine Bilirubin Negative (NEGATIVE) Urine Urobilinogen Normal (NEGATIVE) mg/dL Ur Leukocyte Esterase Large H (NEGATIVE) Urine RBC 0-5 (0) Urine WBC 10-20 H (0) Ur Squamous Epith Cells Occasional (NS,R,O) Urine Bacteria Many H (NS) Phenytoin (10.0-20.0) ug/mL Result Diagrams: 09/08/17 22:00 09/08/17 22:00 EKG INTERPRETATION Rhythm: A-Fib - Problem List (1) Fall SNOMED Code(s): 0236804, 533401806 ICD Code: W19.XXXA - UNSPECIFIED FALL, INITIAL ENCOUNTER Status: Acute Current Visit: Yes (2) Dementia SNOMED Code(s): 92700702 ICD Code: F03.90 - UNSPECIFIED DEMENTIA WITHOUT BEHAVIORAL DISTURBANCE Status: Acute Current Visit: Yes Qualifiers: Dementia type: Alzheimer's disease (3) Palliative care patient SNOMED Code(s): 073821715 ICD Code: Z51.5 - ENCOUNTER FOR PALLIATIVE CARE Status: Acute Current Visit: Yes (4) Head injury SNOMED Code(s): 06960859 ICD Code: S09.90XA - UNSPECIFIED INJURY OF HEAD, INITIAL ENCOUNTER Status: Acute Current Visit: Yes (5) Seizure disorder SNOMED Code(s): 923057770 ICD Code: G40.909 - EPILEPSY, UNSP, NOT INTRACTABLE, WITHOUT STATUS EPILEPTICUS Status: Chronic Current Visit: Yes (6) Afib SNOMED Code(s): 82131770 ICD Code: I48.91 - UNSPECIFIED ATRIAL FIBRILLATION Status: Chronic Current Visit: Yes Qualifiers: Atrial fibrillation type: paroxysmal Qualified Code(s): I48.0 - Paroxysmal atrial fibrillation (7) Anemia SNOMED Code(s): 245913661 ICD Code: D64.9 - ANEMIA, UNSPECIFIED Status: Acute Current Visit: No Qualifiers: Anemia type: unspecified type Qualified Code(s): D64.9 - Anemia, unspecified (8) Asthma SNOMED Code(s): 092458473 ICD Code: J45.909 - UNSPECIFIED ASTHMA, UNCOMPLICATED Status: Acute Current Visit: No Qualifiers: Asthma severity: unspecified severity Asthma complication type: uncomplicated Problem List Initiated/Reviewed/Updated: Yes Orders Last 24hrs: Active Orders 24 hr Category Date Time Status Patient Status Manage Transfer [TRANSFER] Routine ADT 09/09/17 09:01 Ordered Patient Status [ADT] Routine ADT 09/08/17 23:16 Active Cardiac Monitoring [RC] INTERMITTENT Care 09/08/17 23:20 Inactive EKG Documentation Completion [RC] ASDIRECTED Care 09/08/17 23:21 Active Oxygen Therapy [RC] PRN Care 09/08/17 23:16 Active RT Aerosol Therapy [RC] ASDIRECTED Care 09/09/17 07:52 Active RT Aerosol Therapy [RC] ASDIRECTED Care 09/09/17 09:00 Active Up With Assistance [RC] ASDIRECTED Care 09/08/17 23:16 Active Vaccines to be Administered [RC] PER UNIT ROUTINE Care 09/08/17 21:53 Active Vital Signs [RC] Q4H Care 09/08/17 23:16 Active Consult to Retail Marketing Manager [CONS] Routine Cons 09/09/17 08:59 Active OT Evaluation and Treatment [CONS] Routine Cons 09/09/17 08:58 Active PT Evaluation and Treatment [CONS] Routine Cons 09/09/17 08:58 Active Cervical Spine wo Cont [CT] Stat Exams 09/08/17 21:48 Taken Chest 2V [CR] Routine Exams 09/09/17 08:58 Ordered Head wo Cont [CT] Stat Exams 09/08/17 21:48 Ordered Wrist Comp Min 3V Bi [CR] Stat Exams 09/08/17 21:48 Taken CBC WITH AUTO DIFF [HEME] AM Lab 09/10/17 05:11 Ordered COMPREHENSIVE METABOLIC PN,CMP [CHEM] AM Lab 09/10/17 05:11 Ordered CULTURE URINE [RM] Stat Lab 09/08/17 22:45 Received PRO B-TYPE NATRIUR PEPT,BNPPRO [CHEM] DAILY Lab 09/10/17 05:11 Ordered PRO B-TYPE NATRIUR PEPT,BNPPRO [CHEM] DAILY Lab 09/11/17 05:11 Ordered TROPONIN I [CHEM] AM Lab 09/10/17 05:11 Ordered UA W/MICROSCOPIC [URIN] Stat Lab 09/08/17 22:45 Ordered Acetaminophen [Tylenol Extra Strength] Med 09/09/17 09:00 Ordered 1,000 mg PO Q6H PRN Acetaminophen/HYDROcodone [[place] 325-5 MG] Med 09/09/17 04:20 Active 1 tab PO Q4H PRN Albuterol/Ipratropium [DuoNeb 3.0-0.5 MG/3 ML] Med 09/09/17 08:59 Ordered 3 ml NEB Q4H PRN Aspirin [Halfprin] Med 09/09/17 09:00 Ordered 81 mg PO DAILY Beclomethasone Dipropionate [Qvar 80 Mcg] Med 09/09/17 09:00 Ordered DOSE gm INH BID Ferrous Sulfate Med 09/09/17 09:00 Ordered 325 mg PO DAILY LORazepam [Ativan] Med 09/09/17 00:40 Active 0.5 mg IVPUSH BEDTIME PRN Memantine [Namenda] Med 09/09/17 09:00 Ordered 10 mg PO DAILY Omeprazole [Omeprazole] Med 09/09/17 09:00 Ordered 20 mg PO DAILY Ondansetron [Zofran] Med 09/08/17 23:16 Active 4 mg IV Q4H PRN Sodium Chloride 0.9% [Saline Flush] Med 09/08/17 23:16 Active 10 ml FLUSH ASDIRECTED PRN Peripheral IV Insertion Adult [OM.PC] Routine Oth 09/08/17 23:16 Ordered Resuscitation Status Routine Resus Stat 09/08/17 23:16 Ordered EKG 12 Lead [EK] Routine Ther 09/08/17 23:16 Ordered Medication Orders Acetaminophen (Tylenol Extra Strength) 1,000 mg PO Q6H PRN PRN Reason: Pain Hydrocodone Bitart/Acetaminophen ([place] 325-5 Mg) 1 tab PO Q4H PRN PRN Reason: Pain Last Admin: 09/09/17 04:34 Dose: 1 tab Albuterol/Ipratropium (Duoneb 3.0-0.5 Mg/3 Ml) 3 ml NEB Q4H PRN PRN Reason: Wheezing Aspirin (Halfprin) 81 mg PO DAILY DOTTIE Beclomethasone Dipropionate (Qvar 80 Mcg) gm INH BID DOTTIE Ferrous Sulfate (Ferrous Sulfate) 325 mg PO DAILY DOTT[facility] Lorazepam (Ativan) 0.5 mg IVPUSH BEDTIME PRN PRN Reason: Anxiety Memantine (Namenda) 10 mg PO DAILY DOTTIE Non-Formulary Medication (Omeprazole [Omeprazole]) 20 mg PO DAILY DOTTIE Ondansetron HCl (Zofran) 4 mg IV Q4H PRN PRN Reason: Nausea/Vomiting Sodium Chloride (Saline Flush) 10 ml FLUSH ASDIRECTED PRN PRN Reason: Keep Vein Open Assessment/Plan Comment:: We'll admit her to inpatient, give her DuoNeb when necessary and continue oral prednisone. I ve reconciled her medications including Aricept. Would try melatonin at night for sleep. I've also consulted physical and occupational therapy. I'll discontinue Dilantin. Both Eloise and her need social work consultation, living conditions for possible placement
[2017-09-09] MEDS: Memantine 10 MG Tab PO SCH (11:24)
[2017-09-09] MEDS: Pantoprazole 40 MG Tab.CR PO SCH (11:24)
[2017-09-09] MEDS: Aspirin 81 MG Tab.EC PO SCH (11:24)
[2017-09-09] MEDS: Ferrous Sulfate 325 MG Tab PO SCH (11:24)
[2017-09-09] MEDS ORDERED: Acetaminophen 650 MG Tab.ER PO PRN (13:33)
[2017-09-09] MEDS ORDERED: Memantine 10 MG Tab PO ONE (15:00)
[2017-09-09] MEDS: Enoxaparin 30 MG/0.3 ML Syringe SUBCUT SCH (15:39)
[2017-09-09] MEDS: Donepezil 5 MG Tab PO SCH (20:56)
[2017-09-09] MEDS: predniSONE 20 MG Tab PO SCH (20:57)
[2017-09-09] MEDS: Melatonin 3 MG Tab PO SCH (20:57)
[2017-09-10] MEDS: Ferrous Sulfate 325 MG Tab PO SCH (08:55)
[2017-09-10] MEDS: Pantoprazole 40 MG Tab.CR PO SCH (08:55)
[2017-09-10] MEDS: predniSONE 20 MG Tab PO SCH ×2 (08:55→20:29)
[2017-09-10] MEDS: Aspirin 81 MG Tab.EC PO SCH (08:55)
[2017-09-10] MEDS: Memantine 10 MG Tab PO SCH (08:55)
--- NOTE | 2017-09-10 09:58 | PCM.PN ---
- General Info Date of Service: 09/10/17 Subjective Update: Eloise is doing better today, complaints of some cough& shortness of breath but no fever. She complains of feeling poor and weak. Her memory due to dementia has been failing. Overnight she slept well. A chest x-ray official report shows atelectasis- no pneumonia. - Review of Systems Gastrointestinal: Reports: No Symptoms Genitourinary: Reports: No Symptoms Musculoskeletal: Reports: No Symptoms - Patient Data Vitals - Most Recent: Last Vital Signs Temp 98 F 09/10/17 03:54 Pulse 73 09/10/17 03:54 Resp 24 H 09/10/17 03:54 BP 135/64 09/10/17 03:54 Pulse Ox 96 09/10/17 03:54 Weight - Most Recent: 61.235 kg Lab Results Last 24 Hours: Laboratory Results - last 24 hr 09/10/17 09/10/17 09/10/17 Range/Units 06:25 06:25 06:25 WBC 5.2 (4.5-12.0) X10-3/uL RBC 3.78 (3.23-5.20) x10(6)uL Hgb 11.2 L (11.5-15.5) g/dL Hct 33.3 (30.0-51.3) % MCV 88.1 (80-96) fL MCH 29.6 (27.7-33.6) pg MCHC 33.6 (32.2-35.4) g/dL RDW 13.2 (11.5-15.5) % Plt Count 121 L (125-369) X10(3)uL MPV 8.5 (7.4-10.4) fL Neut % (Auto) 62.4 (46-82) % Lymph % (Auto) 27.0 (13-37) % [place] % (Auto) 7.3 (4-12) % Eos % (Auto) 3 (1.0-5.0) % Baso % (Auto) 0 (0-2) % Neut # (Auto) 3.3 (1.6-8.3) # Lymph # (Auto) 1.4 (0.6-5.0) # [place] # (Auto) 0.4 (0.0-1.3) # Eos # (Auto) 0.1 (0.0-0.8) # Baso # (Auto) 0.0 (0.0-0.2) # Sodium 141 (135-145) mmol/L Potassium 4.1 (3.5-5.3) mmol/L Chloride 109 (100-110) mmol/L Carbon Dioxide 26 (21-32) mmol/L BUN 18 (7-18) mg/dL Creatinine 0.8 (0.55-1.02) mg/dL Est Cr Clr Drug Dosing 43.03 mL/min Estimated GFR (MDRD) > 60 (>60) BUN/Creatinine Ratio 22.5 H (9-20) Glucose 96 (80-116) mg/dL Calcium 8.2 L (8.6-10.2) mg/dL Total Bilirubin 0.3 (0.1-1.3) mg/dL AST 26 H D (5-25) IU/L ALT 22 (12-36) U/L Alkaline Phosphatase 155 H (56-112) IU/L Troponin I 0.024 (<0.017-0.056) ng/mL NT-Pro-B Natriuret Pep 1201 H* (<=450) pg/mL Total Protein 5.7 L (6.0-8.0) g/dL Albumin 2.5 L (3.2-4.6) g/dL Globulin 3.2 g/dL Albumin/Globulin Ratio 0.8 [place] Results Last 24 Hours: Microbiology 09/08/17 22:45 Urine Culture - Preliminary Urine, Clean Catch Gram Negative Rods Med Orders - Current: Current Medications Acetaminophen (Tylenol Arthritis Pain) 650 mg PO Q8H PRN PRN Reason: Pain Hydrocodone Bitart/Acetaminophen ([place] 325-5 Mg) 1 tab PO Q4H PRN PRN Reason: Pain Last Admin: 09/09/17 04:34 Dose: 1 tab Albuterol/Ipratropium (Duoneb 3.0-0.5 Mg/3 Ml) 3 ml NEB Q4H PRN PRN Reason: Wheezing Aspirin (Halfprin) 81 mg PO DAILY [facility] Last Admin: 09/10/17 08:55 Dose: Not Given Donepezil HCl (Aricept) 5 mg PO BEDTIME DOTTEI Last Admin: 09/09/17 20:56 Dose: 5 mg Enoxaparin Sodium (Lovenox) 30 mg SUBCUT Q24H [facility] Last Admin: 09/09/17 15:39 Dose: 30 mg Ferrous Sulfate (Ferrous Sulfate) 325 mg PO DAILY [facility] Last Admin: 09/10/17 08:55 Dose: 325 mg Lorazepam (Ativan) 0.5 mg IVPUSH BEDTIME PRN PRN Reason: Anxiety Melatonin (Melatonin) 3 mg PO BEDTIME [facility] Last Admin: 09/09/17 20:57 Dose: 3 mg Memantine (Namenda) 10 mg PO DAILY [facility] Last Admin: 09/10/17 08:55 Dose: 10 mg Ondansetron HCl (Zofran) 4 mg IV Q4H PRN PRN Reason: Nausea/Vomiting Pantoprazole Sodium (Protonix) 40 mg PO ACBREAKFAST [facility] Last Admin: 09/10/17 08:55 Dose: 40 mg Prednisone (Prednisone) 20 mg PO BID [facility] Last Admin: 09/10/17 08:55 Dose: 20 mg Sodium Chloride (Saline Flush) 10 ml FLUSH ASDIRECTED PRN PRN Reason: Keep Vein Open Discontinued Medications Acetaminophen (Tylenol Extra Strength) 1,000 mg PO Q6H PRN PRN Reason: Pain Hydrocodone Bitart/Acetaminophen ([place] 325-5 Mg) 1 tab PO ONETIME ONE Stop: 09/08/17 22:51 Last Admin: 09/08/17 22:53 Dose: 1 tab Albuterol/Ipratropium (Duoneb 3.0-0.5 Mg/3 Ml) 3 ml NEB ONETIME ONE Stop: 09/09/17 07:53 Last Admin: 09/09/17 08:00 Dose: 3 ml Albuterol/Ipratropium (Duoneb 3.0-0.5 Mg/3 Ml) Confirm Administered Dose 3 ml .ROUTE .STK-MED ONE Stop: 09/09/17 07:58 Last Admin: 09/09/17 08:05 Dose: Not Given Beclomethasone Dipropionate (Qvar 80 Mcg) 0 gm INH BID [facility] Last Admin: 09/09/17 11:24 Dose: Not Given Bupivacaine HCl ([place] 0.5%) 2 ml INFILT .STK-MED ONE Stop: 09/08/17 23:56 Diphtheria/Tetanus/Acell Pertussis (Adacel) 0.5 ml IM .ONCE ONE Stop: 09/08/17 21:53 Last Admin: 09/08/17 22:49 Dose: 0.5 ml Sodium Chloride (Normal Saline) 1,000 mls @ 125 mls/hr IV ASDIRECTED STA Stop: 09/09/17 07:38 Last Admin: 09/09/17 04:33 Dose: 125 mls/hr Sodium Chloride (Normal Saline) 500 mls @ 999 mls/hr IV .BOLUS ONE Stop: 09/09/17 01:08 Last Admin: 09/09/17 01:05 Dose: 999 mls/hr Ketorolac Tromethamine (Toradol) 15 mg IVPUSH ONETIME ONE Stop: 09/09/17 00:41 Last Admin: 09/09/17 00:48 Dose: 15 mg Levofloxacin (Levaquin) 500 mg PO ONETIME STA Stop: 09/08/17 23:03 Last Admin: 09/09/17 00:13 Dose: 500 mg Levofloxacin (Levaquin) Confirm Administered Dose 500 mg .ROUTE .STK-MED ONE Stop: 09/09/17 00:12 Last Admin: 09/09/17 00:29 Dose: Not Given Memantine (Namenda) 10 mg PO ONETIME ONE Stop: 09/09/17 15:01 Last Admin: 09/09/17 15:36 Dose: 10 mg Morphine Sulfate (Morphine) 2 mg IVPUSH Q2H PRN PRN Reason: Pain (severe 7-10) - Exam Quality Assessment: Supplemental Oxygen General: Alert, Cooperative HEENT: Pupils Equal Neck: Supple Lungs: Decreased Breath Sounds, Rhonchi GI/Abdominal Exam: Normal Bowel Sounds, Soft, Non-Tender, No Organomegaly, No Distention, No Abnormal Bruit, No Mass, Pelvis Stable - Problem List & Annotations (1) Fall SNOMED Code(s): 8166295, 820578640 Code(s): W19.XXXA - UNSPECIFIED FALL, INITIAL ENCOUNTER Status: Acute Current Visit: Yes Qualifiers: Encounter type: initial encounter Qualified Code(s): W19.XXXA - Unspecified fall, initial encounter (2) Dementia SNOMED Code(s): 40416387 Code(s): F03.90 - UNSPECIFIED DEMENTIA WITHOUT BEHAVIORAL DISTURBANCE Status: Acute Current Visit: Yes Qualifiers: Dementia type: Alzheimer's disease (3) Palliative care patient SNOMED Code(s): 869262209 Code(s): Z51.5 - ENCOUNTER FOR PALLIATIVE CARE Status: Acute Current Visit: Yes (4) Head injury SNOMED Code(s): 16998679 Code(s): S09.90XA - UNSPECIFIED INJURY OF HEAD, INITIAL ENCOUNTER Status: Acute Current Visit: Yes Qualifiers: Encounter type: initial encounter Qualified Code(s): S09.90XA - Unspecified injury of head, initial encounter (5) Seizure disorder SNOMED Code(s): 021780102 Code(s): G40.909 - EPILEPSY, UNSP, NOT INTRACTABLE, WITHOUT STATUS EPILEPTICUS Status: Chronic Current Visit: Yes (6) Afib SNOMED Code(s): 79042465 Code(s): I48.91 - UNSPECIFIED ATRIAL FIBRILLATION Status: Chronic Current Visit: Yes Qualifiers: Atrial fibrillation type: paroxysmal Qualified Code(s): I48.0 - Paroxysmal atrial fibrillation (7) Anemia SNOMED Code(s): 441430622 Code(s): D64.9 - ANEMIA, UNSPECIFIED Status: Acute Current Visit: No Qualifiers: Anemia type: unspecified type Qualified Code(s): D64.9 - Anemia, unspecified (8) Asthma SNOMED Code(s): 648610843 Code(s): J45.909 - UNSPECIFIED ASTHMA, UNCOMPLICATED Status: Acute Current Visit: No Qualifiers: Asthma severity: unspecified severity Asthma complication type: uncomplicated (9) Asymptomatic bacteriuria SNOMED Code(s): 335000672 Code(s): R82.71 - BACTERIURIA Status: Acute Current Visit: Yes - Problem List Review Problem List Initiated/Reviewed/Updated: Yes - My Orders Last 24 Hours: My Active Orders 09/09/17 08:58 OT Evaluation and Treatment [CONS] Routine PT Evaluation and Treatment [CONS] Routine Chest 2V [CR] Routine 09/09/17 08:59 Consult to Lan Manager [CONS] Routine Albuterol/Ipratropium [DuoNeb 3.0-0.5 MG/3 ML] 3 ml NEB Q4H PRN 09/09/17 09:00 RT Aerosol Therapy [RC] ASDIRECTED Aspirin [Halfprin] 81 mg PO DAILY Ferrous Sulfate 325 mg PO DAILY Memantine [Namenda] 10 mg PO DAILY 09/09/17 10:00 Pantoprazole [ProTONIX] 40 mg PO ACBREAKFAST 09/09/17 13:33 Acetaminophen [Tylenol Arthritis Pain] 650 mg PO Q8H PRN 09/09/17 16:00 Enoxaparin [Lovenox] 30 mg SUBCUT Q24H 09/09/17 21:00 Donepezil [Aricept] 5 mg PO BEDTIME Melatonin 3 mg PO BEDTIME predniSONE 20 mg PO BID 09/11/17 05:11 PRO B-TYPE NATRIUR PEPT,BNPPRO [CHEM] DAILY - Plan Plan:: We'll be waiting for physical and occupational therapy eval, to determine disposition. For now continue current medications. Encourage ambulation. And wean off oxygen if possible. Chest x-ray only showed atelectasis. BNP slightly elevated, UA and culture revealed bacteria but she has no symptoms.Will observe
[2017-09-10] MEDS: Enoxaparin 30 MG/0.3 ML Syringe SUBCUT SCH (16:21)
[2017-09-10] MEDS: Donepezil 5 MG Tab PO SCH (20:29)
[2017-09-10] MEDS: Melatonin 3 MG Tab PO SCH (20:29)
[2017-09-11] MEDS: Pantoprazole 40 MG Tab.CR PO SCH (07:42)
--- NOTE | 2017-09-11 07:56 | PCM.PN ---
- General Info Date of Service: 09/11/17 Subjective Update: Patient history includes morning. She slept well, complains of no fever or urinary symptoms. Physical therapy felt that she is able to go home independently with home health. - Review of Systems Cardiovascular: Reports: No Symptoms Gastrointestinal: Reports: No Symptoms Genitourinary: Reports: No Symptoms - Patient Data Vitals - Most Recent: Last Vital Signs Temp 98.3 F 09/11/17 01:55 Pulse 73 09/11/17 01:55 Resp 18 09/11/17 01:55 BP 141/79 H 09/11/17 01:55 Pulse Ox 91 L 09/11/17 01:55 Weight - Most Recent: 61.235 kg Lab Results Last 24 Hours: Laboratory Results - last 24 hr 09/11/17 Range/Units 06:50 NT-Pro-B Natriuret Pep 1083 H* (<=450) pg/mL Segundo Results Last 24 Hours: Microbiology 09/08/17 22:45 Urine Culture - Final Urine, Clean Catch Escherichia Coli Med Orders - Current: Current Medications Acetaminophen (Tylenol Arthritis Pain) 650 mg PO Q8H PRN PRN Reason: Pain Hydrocodone Bitart/Acetaminophen ([place] 325-5 Mg) 1 tab PO Q4H PRN PRN Reason: Pain Last Admin: 09/09/17 04:34 Dose: 1 tab Albuterol/Ipratropium (Duoneb 3.0-0.5 Mg/3 Ml) 3 ml NEB Q4H PRN PRN Reason: Wheezing Aspirin (Halfprin) 81 mg PO DAILY COUNT INCLUDES THE [facility] Last Admin: 09/10/17 08:55 Dose: Not Given Donepezil HCl (Aricept) 5 mg PO BEDTIME COUNT INCLUDES THE [facility] Last Admin: 09/10/17 20:29 Dose: 5 mg Enoxaparin Sodium (Lovenox) 30 mg SUBCUT Q24H COUNT INCLUDES THE [facility] Last Admin: 09/10/17 16:21 Dose: 30 mg Ferrous Sulfate (Ferrous Sulfate) 325 mg PO DAILY COUNT INCLUDES THE [facility] Last Admin: 09/10/17 08:55 Dose: 325 mg Lorazepam (Ativan) 0.5 mg IVPUSH BEDTIME PRN PRN Reason: Anxiety Melatonin (Melatonin) 3 mg PO BEDTIME COUNT INCLUDES THE [facility] Last Admin: 09/10/17 20:29 Dose: 3 mg Memantine (Namenda) 10 mg PO DAILY COUNT INCLUDES THE [facility] Last Admin: 09/10/17 08:55 Dose: 10 mg Ondansetron HCl (Zofran) 4 mg IV Q4H PRN PRN Reason: Nausea/Vomiting Pantoprazole Sodium (Protonix) 40 mg PO ACBREAKFAST COUNT INCLUDES THE [facility] Last Admin: 09/11/17 07:42 Dose: 40 mg Prednisone (Prednisone) 20 mg PO BID COUNT INCLUDES THE [facility] Last Admin: 09/10/17 20:29 Dose: 20 mg Sodium Chloride (Saline Flush) 10 ml FLUSH ASDIRECTED PRN PRN Reason: Keep Vein Open Discontinued Medications Acetaminophen (Tylenol Extra Strength) 1,000 mg PO Q6H PRN PRN Reason: Pain Hydrocodone Bitart/Acetaminophen ([place] 325-5 Mg) 1 tab PO ONETIME ONE Stop: 09/08/17 22:51 Last Admin: 09/08/17 22:53 Dose: 1 tab Albuterol/Ipratropium (Duoneb 3.0-0.5 Mg/3 Ml) 3 ml NEB ONETIME ONE Stop: 09/09/17 07:53 Last Admin: 09/09/17 08:00 Dose: 3 ml Albuterol/Ipratropium (Duoneb 3.0-0.5 Mg/3 Ml) Confirm Administered Dose 3 ml .ROUTE .STK-MED ONE Stop: 09/09/17 07:58 Last Admin: 09/09/17 08:05 Dose: Not Given Beclomethasone Dipropionate (Qvar 80 Mcg) 0 gm INH BID COUNT INCLUDES THE [facility] Last Admin: 09/09/17 11:24 Dose: Not Given Bupivacaine HCl (Marcaine 0.5%) 2 ml INFILT .STK-MED ONE Stop: 09/08/17 23:56 Diphtheria/Tetanus/Acell Pertussis (Adacel) 0.5 ml IM .ONCE ONE Stop: 09/08/17 21:53 Last Admin: 09/08/17 22:49 Dose: 0.5 ml Sodium Chloride (Normal Saline) 1,000 mls @ 125 mls/hr IV ASDIRECTED STA Stop: 09/09/17 07:38 Last Admin: 09/09/17 04:33 Dose: 125 mls/hr Sodium Chloride (Normal Saline) 500 mls @ 999 mls/hr IV .BOLUS ONE Stop: 09/09/17 01:08 Last Admin: 09/09/17 01:05 Dose: 999 mls/hr Ketorolac Tromethamine (Toradol) 15 mg IVPUSH ONETIME ONE Stop: 09/09/17 00:41 Last Admin: 09/09/17 00:48 Dose: 15 mg Levofloxacin (Levaquin) 500 mg PO ONETIME STA Stop: 09/08/17 23:03 Last Admin: 09/09/17 00:13 Dose: 500 mg Levofloxacin (Levaquin) Confirm Administered Dose 500 mg .ROUTE .STK-MED ONE Stop: 09/09/17 00:12 Last Admin: 09/09/17 00:29 Dose: Not Given Memantine (Namenda) 10 mg PO ONETIME ONE Stop: 09/09/17 15:01 Last Admin: 09/09/17 15:36 Dose: 10 mg Morphine Sulfate (Morphine) 2 mg IVPUSH Q2H PRN PRN Reason: Pain (severe 7-10) - Exam General: Alert HEENT: Pupils Equal, Pupils Reactive, EOMI, Mucous Membr. Moist/[place] Neck: Supple Lungs: Rhonchi - Problem List & Annotations (1) Fall SNOMED Code(s): 3359195, 385933242 Code(s): W19.XXXA - UNSPECIFIED FALL, INITIAL ENCOUNTER Status: Acute Current Visit: Yes Qualifiers: Encounter type: initial encounter Qualified Code(s): W19.XXXA - Unspecified fall, initial encounter (2) Dementia SNOMED Code(s): 59962228 Code(s): F03.90 - UNSPECIFIED DEMENTIA WITHOUT BEHAVIORAL DISTURBANCE Status: Acute Current Visit: Yes Qualifiers: Dementia type: Alzheimer's disease (3) Palliative care patient SNOMED Code(s): 077039120 Code(s): Z51.5 - ENCOUNTER FOR PALLIATIVE CARE Status: Acute Current Visit: Yes (4) Head injury SNOMED Code(s): 25456614 Code(s): S09.90XA - UNSPECIFIED INJURY OF HEAD, INITIAL ENCOUNTER Status: Acute Current Visit: Yes Qualifiers: Encounter type: initial encounter Qualified Code(s): S09.90XA - Unspecified injury of head, initial encounter (5) Seizure disorder SNOMED Code(s): 387685772 Code(s): G40.909 - EPILEPSY, UNSP, NOT INTRACTABLE, WITHOUT STATUS EPILEPTICUS Status: Chronic Current Visit: Yes (6) Afib SNOMED Code(s): 54440698 Code(s): I48.91 - UNSPECIFIED ATRIAL FIBRILLATION Status: Chronic Current Visit: Yes Qualifiers: Atrial fibrillation type: paroxysmal Qualified Code(s): I48.0 - Paroxysmal atrial fibrillation (7) Anemia SNOMED Code(s): 209017110 Code(s): D64.9 - ANEMIA, UNSPECIFIED Status: Acute Current Visit: No Qualifiers: Anemia type: unspecified type Qualified Code(s): D64.9 - Anemia, unspecified (8) Asthma SNOMED Code(s): 104925709 Code(s): J45.909 - UNSPECIFIED ASTHMA, UNCOMPLICATED Status: Acute Current Visit: No Qualifiers: Asthma severity: unspecified severity Asthma complication type: uncomplicated (9) Asymptomatic bacteriuria SNOMED Code(s): 458755831 Code(s): R82.71 - BACTERIURIA Status: Acute Current Visit: Yes - Problem List Review Problem List Initiated/Reviewed/Updated: Yes - Plan Plan:: We'll discharge her today. I stop the Dilantin but will go home on the rest of the home medications. She does not need antibiotics. She'll need home health for metastases, and evaluation of one conditions and follow-up due to her memory.
[2017-09-11 08:33] VITALS: BP 131/85
[2017-09-11] MEDS: Memantine 10 MG Tab PO SCH (09:48)
[2017-09-11] MEDS: Ferrous Sulfate 325 MG Tab PO SCH (09:48)
[2017-09-11] MEDS: Aspirin 81 MG Tab.EC PO SCH (09:48)
[2017-09-11] MEDS: predniSONE 20 MG Tab PO SCH (09:48)
--- NOTE | 2017-09-12 05:47 | DISCH ---
DISCHARGE DATE: 09/11/2017 REASONS FOR ADMISSION: 1. Head injury. 2. Alteration of mental status. 3. Dementia. 4. History of seizure disorder. 5. Asthma. 6. Possible atrial fibrillation, paroxysmal. DISCHARGE DIAGNOSES: 1. Head injury. 2. Alteration of mental status. 3. Dementia. 4. History of seizure disorder. 5. Asthma. 6. Possible atrial fibrillation, paroxysmal. PROCEDURES: None. BRIEF HISTORY AND HOSPITAL COURSE: A 77-year-old female who fell at home, had a small laceration to the left forehead area. She was admitted initially on observation, and changed to inpatient. She was found to be weak, was hypoxic (she has a history of asthma), and bronchitis. She was treated with IV fluids initially. Physical Therapy evaluated her and found her to be independent. CT scan of the head was negative, so was the CT of the neck. I discontinued Dilantin because it was in toxic levels. She has not had a seizure for more than 40 years. One EKG showed atrial fibrillation, but the rest were negative for any ST changes or arrhythmias. DISCHARGE MEDICATIONS: 1. Aricept 5 mg a day. 2. Namenda 10 mg daily. 3. Melatonin 3 mg at bedtime. 4. Albuterol p.r.n. at home. I discontinued the prednisone that she was taking from home. FOLLOWUP: She will be seen in the office on Sunday for removal of stitches, and then in two weeks for further followup. I spent more than 35 minutes in the discharge of the patient. /[id number] ZACH/KALEIGH
== END 2017-09-11 10:00 | disposition home health service (06) | DRG 914 ==
LOC: FB.ED 21:45 → FB.MS 23:16 → OBSVTOIN 09-09 09:01
PROVIDERS: ADMIT Family Medicine; ATTEND Family Medicine
PROC: 0HQ1XZZ Repair Face Skin, External Approach (ICD-10-PCS; principal; 2017-09-09)
DX: S09.90XA Unspecified injury of head, initial encounter (principal); S01.81XA Laceration without foreign body of other part of head, initial encounter; Z51.5 Encounter for palliative care; W19.XXXA Unspecified fall, initial encounter; Y92.009 Unspecified place in unspecified non-institutional (private) residence as the place of occurrence of the external cause; R46.0 Very low level of personal hygiene; R53.1 Weakness; R41.0 Disorientation, unspecified; M19.032 Primary osteoarthritis, left wrist; M19.031 Primary osteoarthritis, right wrist; Z91.81 History of falling; R82.71 Bacteriuria; F03.90 Unspecified dementia, unspecified severity, without behavioral disturbance, psychotic disturbance, mood disturbance, and anxiety; Z86.718 Personal history of other venous thrombosis and embolism; Z87.898 Personal history of other specified conditions; J45.909 Unspecified asthma, uncomplicated; D64.9 Anemia, unspecified; I48.0 Paroxysmal atrial fibrillation; Z87.01 Personal history of pneumonia (recurrent); Z88.6 Allergy status to analgesic agent; Z88.5 Allergy status to narcotic agent
CPT/HCPCS: 12011; 36415; 70450; 72125; 73110; 80048; 80185; 81001; 85025; 85610; 87086; 90471; 90715; 94640; 99285; A9270 ×3; J1885; J7040 ×3; J7620; 71046; 80053; 83880; 84484; 87088; 87186; 93005; 97116-GP; 97161-GP; 97165-GO; 97530-GP; J1650

== ENCOUNTER 2017-12-22 12:28 | Emergency (ER) | payer MEDICARE, BC ==
--- NOTE | 2017-12-22 13:38 | EDM.PDOC ---
ED HPI GENERAL MEDICAL PROBLEM - General Chief Complaint: Abdominal Pain Stated Complaint: sob Time Seen by Provider: 12/22/17 12:45 Source of Information: Reports: Patient History Limitations: Reports: Other (, dementia documented in the problem list. "I can't rember if I was here last week." food doesn t catch in her esophagus, pmhx doc Marques's esophagitis, gastritis,m and " I can't take aspirin") - History of Present Illness INITIAL COMMENTS - FREE TEXT/NARRATIVE: patient denies sob, chest pain, dysphagia, odynaphagia, hematacherzia, diarrhea , constipation, large stools, uti symptoms. 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 Abdominal Pain Score (Numeric/FACES): 0 - Related Data Allergies Allergy/AdvReac Type Severity Reaction Status Date / Time codeine Allergy Severe angioedema Verified 12/22/17 12:35 aspirin Allergy Vomiting Verified 12/22/17 12:35 Home Meds: Home Meds Calcium Carbonate/Vitamin D3 [Calcium 600 + Vit D 200] 1 each PO DAILY 09/19/16 [History] Omeprazole 20 mg PO DAILY 09/19/16 [History] Acetaminophen [Tylenol Arthritis Pain] 650 mg PO Q8H PRN 09/09/17 [History] Donepezil [Aricept] 5 mg PO BEDTIME 09/09/17 [History] Melatonin 3 mg PO BEDTIME #30 tablet 09/11/17 [Rx] Memantine [Namenda] 10 mg PO DAILY #30 tablet 09/11/17 [Rx] Phenytoin 100 mg PO BID 12/17/17 [History] Past Medical History HEENT History: Reports: None, Cataract Other HEENT History: Wears glasses usually. Cardiovascular History: Reports: Blood Clots/VTE/DVT, Other (See Below) Other Cardiovascular History: EDEMA Respiratory History: Reports: Pneumonia, Recurrent Other Respiratory History: COUGH, DIAPHRAGMATIC HERNIA Gastrointestinal History: Reports: Gastritis, GERD, Hiatal Hernia, PUD, Other ( See Below) Other Gastrointestinal History: GASTRODUODENITIS, BARRETTS ESOPHAGUS Genitourinary History: Reports: None Musculoskeletal History: Reports: Osteoporosis, Other (See Below) Other Musculoskeletal History: ANKLE SPRAIN Neurological History: Reports: Seizure Other Neuro History: Epilepsy. Psychiatric History: Reports: Other (See Below) Other Psychiatric History: insomnia Endocrine/Metabolic History: Hematologic History: Reports: Anemia Other Hematologic History: Denies any past history of anemia. Dermatologic History: Reports: Other (See Below) Other Dermatologic History: Skin toned lump on left forehead, approximately 1 inch diameter. explains she's had this since childhood. - Infectious Disease History Infectious Disease History: Reports: Chicken Pox, Rubella - Past Surgical History GI Surgical History: Reports: EGD, Hernia Repair/Other, Other (See Below) Social & Family History - Family History Family Medical History: Noncontributory - Tobacco Use Smoking Status *Q: Never Smoker Second Hand Smoke Exposure: No - Caffeine Use Caffeine Use: Reports: Coffee Caffeine Use Comment: 2 cups per day - Recreational Drug Use Recreational Drug Use: No ED ROS GENERAL - Review of Systems Review Of Systems: See Below Constitutional: Reports: No Symptoms HEENT: Reports: No Symptoms Respiratory: Reports: No Symptoms Cardiovascular: Reports: No Symptoms Endocrine: Reports: No Symptoms GI/Abdominal: Reports: Other ("unsuccessful in throwing up") : Reports: Incontinence Musculoskeletal: Reports: No Symptoms Skin: Reports: No Symptoms Neurological: Reports: No Symptoms Psychiatric: Reports: Other (dementia) Hematologic/Lymphatic: Reports: No Symptoms Immunologic: Reports: No Symptoms ED EXAM, GI/ABD - Physical Exam Exam: See Below Text/Narrative:: patient's dementia surfaces intermittently as she expresses her frustration "with a hard time remembering" General Appearance: Alert, Mild Distress Eyes: Bilateral: Normal Appearance (retina artery narrowing) Ears: Normal External Exam Nose: Normal Inspection Throat/Mouth: Other (poor dentition several teeth) Head: Atraumatic Neck: Normal Inspection, Other (no bruits) Respiratory/Chest: No Respiratory Distress, Lungs Clear, Normal Breath Sounds, Chest Non-Tender, Other (intermittently with emotional exasperation takes deep breaths and has suprasternal retraction that go away after the the emotioinal frustration relent) Cardiovascular: Normal Peripheral Pulses GI/Abdominal Exam: Normal Bowel Sounds, Other (no abd tenderenss) Rectal (Female) Exam: Deferred Back Exam: Normal Inspection Extremities: Leg Pain, Other (she has a wrap on her legs right leg just has a benign loose stockinette and the left leg is larger and has a poorly wrapped 3 inch chase that is binding to the left lower leg . there mild swelling, 1+ , mild visible veins, without varicosities, ) Neurological: Alert, Oriented, CN II-XII Intact, No Motor/Sensory Deficits, Memory Loss Recent Events, Other (absent ankle jerks) Psychiatric: Normal Affect Skin Exam: Warm Lymphatic: No Adenopathy Course - Vital Signs Last Recorded V/S: Last Vital Signs Temp 36.7 C 12/22/17 15:20 Pulse 85 12/22/17 15:20 Resp 18 12/22/17 15:20 BP 142/82 H 12/22/17 15:20 Pulse Ox 94 L 12/22/17 15:20 - Orders/Labs/Meds Orders: Active Orders 24 hr Category Date Time Status EKG Documentation Completion [RC] ASDIRECTED Care 12/22/17 13:29 Active CXR [Chest 2V] [CR] Stat Exams 12/22/17 13:29 Taken EKG 12 Lead [EK] Routine Ther 12/22/17 13:29 Ordered Labs: Laboratory Tests 12/22/17 12/22/17 12/22/17 Range/Units 13:40 13:40 13:40 WBC 9.3 (4.5-12.0) X10-3/uL RBC 4.41 (3.23-5.20) x10(6)uL Hgb 12.8 (11.5-15.5) g/dL Hct 38.1 (30.0-51.3) % MCV 86.5 (80-96) fL MCH 29.0 (27.7-33.6) pg MCHC 33.6 (32.2-35.4) g/dL RDW 13.9 (11.5-15.5) % Plt Count 210 (125-369) X10(3)uL MPV 8.3 (7.4-10.4) fL Neut % (Auto) 78.4 (46-82) % Lymph % (Auto) 12.4 L (13-37) % [place] % (Auto) 7.1 (4-12) % Eos % (Auto) 1 (1.0-5.0) % Baso % (Auto) 1 (0-2) % Neut # (Auto) 7.2 (1.6-8.3) # Lymph # (Auto) 1.2 (0.6-5.0) # [place] # (Auto) 0.7 (0.0-1.3) # Eos # (Auto) 0.1 (0.0-0.8) # Baso # (Auto) 0.1 (0.0-0.2) # Sodium (135-145) mmol/L Potassium (3.5-5.3) mmol/L Chloride (100-110) mmol/L Carbon Dioxide (21-32) mmol/L BUN (7-18) mg/dL Creatinine (0.55-1.02) mg/dL Est Cr Clr Drug Dosing mL/min Estimated GFR (MDRD) (>60) BUN/Creatinine Ratio (9-20) Glucose (80-116) mg/dL Calcium (8.6-10.2) mg/dL Total Bilirubin (0.1-1.3) mg/dL AST (5-25) IU/L ALT (12-36) U/L Alkaline Phosphatase (56-112) IU/L Troponin I < 0.017 L (<0.017-0.056) ng/mL NT-Pro-B Natriuret Pep (<=450) pg/mL Total Protein (6.0-8.0) g/dL Albumin (3.2-4.6) g/dL Globulin g/dL Albumin/Globulin Ratio TSH, Ultra Sensitive 0.56 (0.36-3.74) IU/mL 12/22/17 12/22/17 Range/Units 13:40 13:40 WBC (4.5-12.0) X10-3/uL RBC (3.23-5.20) x10(6)uL Hgb (11.5-15.5) g/dL Hct (30.0-51.3) % MCV (80-96) fL MCH (27.7-33.6) pg MCHC (32.2-35.4) g/dL RDW (11.5-15.5) % Plt Count (125-369) X10(3)uL MPV (7.4-10.4) fL Neut % (Auto) (46-82) % Lymph % (Auto) (13-37) % [place] % (Auto) (4-12) % Eos % (Auto) (1.0-5.0) % Baso % (Auto) (0-2) % Neut # (Auto) (1.6-8.3) # Lymph # (Auto) (0.6-5.0) # [place] # (Auto) (0.0-1.3) # Eos # (Auto) (0.0-0.8) # Baso # (Auto) (0.0-0.2) # Sodium 135 (135-145) mmol/L Potassium 4.3 (3.5-5.3) mmol/L Chloride 102 D (100-110) mmol/L Carbon Dioxide 27 (21-32) mmol/L BUN 25 H (7-18) mg/dL Creatinine 0.9 (0.55-1.02) mg/dL Est Cr Clr Drug Dosing 40.09 mL/min Estimated GFR (MDRD) > 60 (>60) BUN/Creatinine Ratio 27.8 H (9-20) Glucose 103 (80-116) mg/dL Calcium 8.6 (8.6-10.2) mg/dL Total Bilirubin 0.4 (0.1-1.3) mg/dL AST 18 D (5-25) IU/L ALT 17 D (12-36) U/L Alkaline Phosphatase 99 (56-112) IU/L Troponin I (<0.017-0.056) ng/mL NT-Pro-B Natriuret Pep 448 (<=450) pg/mL Total Protein 6.9 (6.0-8.0) g/dL Albumin 2.7 L (3.2-4.6) g/dL Globulin 4.2 g/dL Albumin/Globulin Ratio 0.6 TSH, Ultra Sensitive (0.36-3.74) IU/mL Departure - Departure Time of Disposition: 15:00 Disposition: Home, Self-Care 01 Condition: Good Clinical Impression: Hiatal hernia, Marques's esophagus determined by biopsy, Esophagitis, Erosive esophagitis Heart failure Qualifiers: Heart failure type: combined systolic and diastolic Heart failure chronicity: chronic Qualified Code(s): I50.42 - Chronic combined systolic (congestive) and diastolic (congestive) heart failure Asthma Qualifiers: Asthma severity: mild Asthma complication type: uncomplicated Lower extremity pain, anterior Qualifiers: Laterality: left Qualified Code(s): M79.605 - Pain in left leg Gastritis Qualifiers: Gastritis type: other gastritis Chronicity: chronic Gastritis bleeding: without bleeding Qualified Code(s): K29.50 - Unspecified chronic gastritis without bleeding - Discharge Information *PRESCRIPTION DRUG MONITORING PROGRAM REVIEWED*: No *COPY OF PRESCRIPTION DRUG MONITORING REPORT IN PATIENT DIANE: No Instructions: Peptic Ulcer, [id number], Gastritis, Adult, Marques Esophagus Referrals: Bashir Lopez MD [Primary Care Provider] - Forms: ED Department Discharge Additional Instructions: you will need to not use the binding left lower leg chase bandages as it it binding on the lower leg and cutting off appropriate circulation because it is not applied appropriately you will need to go to your MD /health care provider tomorrow to arrange a esophogram with fluorscopy to evaluate your Barrets esophagitis and rule out an stricture that may be causing the symptoms ultimately you may need a repeat endoscopy - My Orders Last 24 Hours: My Active Orders 12/22/17 13:29 EKG Documentation Completion [RC] ASDIRECTED CXR [Chest 2V] [CR] Stat EKG 12 Lead [EK] Routine - Assessment/Plan Last 24 Hours: My Active Orders 12/22/17 13:29 EKG Documentation Completion [RC] ASDIRECTED CXR [Chest 2V] [CR] Stat EKG 12 Lead [EK] Routine
[2017-12-22 15:36] VITALS: BP 142/82
--- NOTE | 2017-12-24 11:22 | CR ---
INDICATION: Need to throw up. CHEST: PA and lateral views of the chest were obtained, 12/22/2017, and compared with 09/09/2017 and 08/31/2017, again revealing a large fixed hiatal hernia with air fluid level. The heart did not appear grossly enlarged. A mild degree of left ventricular enlargement may be present, however. The aorta is tortuous and calcified in the arch and descending portion. Interdigitation of diaphragm leaves, slightly flattened diaphragm leaves, prominent AP diameter, and hyperaeration all suggest COPD. Osteoporotic compressions are noted at L1-2 vertebral bodies and at T12 to a minimal degree, essentially unchanged from 09/09/2017. A definite active infiltrate or effusion as not identified. No free air was noted under the hemidiaphragm leaves. IMPRESSION: 1. No definite acute process. 2. COPD. 3. Large fixed hiatal hernia. 4. ASHD with probable mild LVE. 5. Osteoporosis with compressions, stable compared with August of this year. MTDD
== END 2017-12-22 15:29 | disposition home or self-care (01) ==
LOC: FB.ED 12:28
DX: I50.42 Chronic combined systolic (congestive) and diastolic (congestive) heart failure (principal); K44.9 Diaphragmatic hernia without obstruction or gangrene; K22.70 Barrett's esophagus without dysplasia; M79.605 Pain in left leg; K29.50 Unspecified chronic gastritis without bleeding; J45.909 Unspecified asthma, uncomplicated; Z88.5 Allergy status to narcotic agent; Z88.8 Allergy status to other drugs, medicaments and biological substances
CPT/HCPCS: 36415; 71046; 80053; 83880; 84443; 84484; 85025; 93005; 99284

== ENCOUNTER 2017-12-24 13:14 | Emergency (ER) | payer MEDICARE, BC ==
[2013-01-17 06:28] VITALS: BP 120/76
[2017-12-24 13:36] VITALS: BP 113/71
== END 2017-12-24 13:42 | disposition left against medical advice (07) ==
LOC: FB.ED 13:14
DX: Z53.21 Procedure and treatment not carried out due to patient leaving prior to being seen by health care provider (principal)

== ENCOUNTER 2019-05-06 23:41 | Emergency (ER) | payer MEDICARE, BC ==
--- NOTE | 2019-05-07 00:18 | EDM.PDOC ---
ED HPI GENERAL MEDICAL PROBLEM - General Chief Complaint: Upper Extremity Injury/Pain Stated Complaint: shoulder pain Time Seen by Provider: 05/07/19 00:15 Source of Information: Reports: Patient History Limitations: Reports: No Limitations - History of Present Illness INITIAL COMMENTS - FREE TEXT/NARRATIVE: 79-year-old female who according to the fell while coming into the house proxy one week ago. Patient tells me that she was out getting closed off the line and she begin to feel very weak and woozy and she felt that she needed to go into the house or she might pass out. On the way into the house apparently she did pass out and she fell landing on her right side. Her [place] he saw this happen and when he got to her she was actually awake and he brought her into the house where she went to lay down. Since then she has had pain along her right lateral chest and right medial upper arm. No nausea or vomiting. No abdominal pain. She has been eating and drinking normally. The pain is rated by her as a 6-8/10. It is sharp and worse with palpation and movement. It is also worse with breathing. She denies any further feelings of wanting to pass out since that episode occurred. She's had no cough. The patient is actually a relatively poor historian and this is all the history that I can obtain. There are no other associated signs or symptoms. There are no other modifying factors. Onset: Other (? 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: Other (see below) (Nothing) - Related Data Allergies Allergy/AdvReac Type Severity Reaction Status Date / Time codeine Allergy Severe angioedema Verified 05/07/19 00:02 aspirin Allergy Vomiting Verified 05/07/19 00:02 Home Meds: Home Meds Calcium Carbonate/Vitamin D3 [Calcium 600 + Vit D 200] 1 each PO DAILY 09/19/16 [History] Omeprazole 20 mg PO DAILY 09/19/16 [History] Acetaminophen [Tylenol Arthritis Pain] 650 mg PO Q8H PRN 09/09/17 [History] Donepezil [Aricept] 5 mg PO BEDTIME 09/09/17 [History] Melatonin 3 mg PO BEDTIME #30 tablet 09/11/17 [Rx] Memantine [Namenda] 10 mg PO DAILY #30 tablet 09/11/17 [Rx] Phenytoin 100 mg PO BID 12/17/17 [History] Cephalexin [Keflex] 500 mg PO TID 7 Days #21 capsule 05/07/19 [Rx] Past Medical History HEENT History: Reports: Cataract Other HEENT History: Wears glasses usually. Cardiovascular History: Reports: Blood Clots/VTE/DVT Other Cardiovascular History: EDEMA Respiratory History: Reports: Pneumonia, Recurrent Other Respiratory History: COUGH, DIAPHRAGMATIC HERNIA Gastrointestinal History: Reports: Gastritis, GERD, Hiatal Hernia, PUD, Other ( See Below) Other Gastrointestinal History: GASTRODUODENITIS, BARRETTS ESOPHAGUS Musculoskeletal History: Reports: Osteoporosis, Other (See Below) Other Musculoskeletal History: ANKLE SPRAIN Neurological History: Reports: Seizure Other Neuro History: Epilepsy. Psychiatric History: Reports: Other (See Below) Other Psychiatric History: insomnia Endocrine/Metabolic History: Hematologic History: Reports: Anemia Other Hematologic History: Denies any past history of anemia. Dermatologic History: Reports: Other (See Below) Other Dermatologic History: Skin toned lump on left forehead, approximately 1 inch diameter. explains she's had this since childhood. - Infectious Disease History Infectious Disease History: Reports: Chicken Pox, Rubella - Past Surgical History GI Surgical History: Reports: EGD, Hernia Repair/Other, Other (See Below) Social & Family History - Family History Family Medical History: Noncontributory - Caffeine Use Caffeine Use: Reports: Coffee Caffeine Use Comment: 2 cups per day - Alcohol Use Alcohol Use History: Yes Alcohol Use Frequency: Rarely - Living Situation & Occupation Living situation: Reports: , with Spouse Occupation: Retired Review of Systems - Review of Systems Review Of Systems: See Below Constitutional: Reports: No Symptoms Eyes: Reports: No Symptoms Ears: Reports: No Symptoms Nose: Reports: No Symptoms Mouth/Throat: Reports: No Symptoms Respiratory: Reports: Shortness of Breath Cardiovascular: Reports: Chest Pain Genitourinary: Reports: No Symptoms Musculoskeletal: Reports: Leg Pain Skin: Reports: Lumps Neurological: Reports: No Symptoms ED EXAM, GENERAL - Physical Exam Exam: See Below Exam Limited By: No Limitations General Appearance: Alert, WD/WN Eye Exam: Bilateral Eye: EOMI, Normal Inspection Ears: Normal External Exam Ear Exam: Bilateral Ear: Auricle Normal Nose: Normal Inspection, Normal Mucosa, No Blood Throat/Mouth: Normal Inspection, Normal Oropharynx, Normal Voice Neck: Normal Inspection, Supple, Non-Tender, Full Range of Motion Respiratory/Chest: No Respiratory Distress, Normal Breath Sounds, No Accessory Muscle Use, Rhonchi, Other (Tender with palpation over the right lateral chest. There is no crepitus.) Cardiovascular: Normal Peripheral Pulses, Regular Rate, Rhythm, No Edema Peripheral Pulses: 2+: Radial (L), Radial (R) GI/Abdominal: Normal Bowel Sounds, Soft, Non-Tender Back Exam: Normal Inspection Extremities: Normal Inspection, No Pedal Edema, Normal Capillary Refill, Other ( Tender with palpation over the medial upper arm. No crepitus. No bony deformity. No dislocation of the shoulder.) Neurological: Alert, CN II-XII Intact, No Motor/Sensory Deficits Skin Exam: Warm, Dry, Intact, Normal Color, No Rash EKG INTERPRETATION EKG Date: 05/07/19 Time: 02:10 Rhythm: NSR Rate (Beats/Min): 78 [place]: Normal P-Wave: Present QRS: Normal ST-T: Normal QT: Normal Comparison: No Change (From EKG performed on 12/22/2017.) Course - Vital Signs Last Recorded V/S: Last Vital Signs Temp 36.8 C 05/07/19 05:06 Pulse 92 05/07/19 05:06 Resp 24 H 05/07/19 05:06 BP 152/93 H 05/07/19 05:06 Pulse Ox 95 05/07/19 05:06 - Orders/Labs/Meds Orders: Active Orders 24 hr Category Date Time Status EKG Documentation Completion [RC] ASDIRECTED Care 05/07/19 00:36 Active Ang Chest [CT] Stat Exams 05/07/19 03:16 Taken Head wo Cont [CT] Stat Exams 05/07/19 00:59 Taken Humerus Rt [CR] Stat Exams 05/07/19 00:35 Taken Ribs 2V wo Chest Rt [CR] Stat Exams 05/07/19 00:35 Taken Shoulder Comp Rt [CR] Stat Exams 05/07/19 00:35 Ordered CULTURE URINE [RM] Routine Lab 05/07/19 02:25 Received Sodium Chloride 0.9% [Normal Saline] 1,000 ml Med 05/07/19 02:45 Active IV ASDIRECTED Sodium Chloride 0.9% [Saline Flush] Med 05/07/19 02:37 Active 10 ml FLUSH ASDIRECTED PRN Peripheral IV Insertion Adult [OM.PC] Routine Oth 05/07/19 02:37 Ordered EKG 12 Lead [EK] Routine Ther 05/07/19 00:35 Ordered Medication Orders Sodium Chloride (Normal Saline) 1,000 mls @ 999 mls/hr IV ASDIRECTED DOTTIE Last Infusion: 05/07/19 03:32 Dose: 30 mls/hr Admin: 05/07/19 03:02 Dose: 999 mls/hr Sodium Chloride (Saline Flush) 10 ml FLUSH ASDIRECTED PRN PRN Reason: Keep Vein Open Labs: Laboratory Tests 05/07/19 05/07/19 05/07/19 Range/Units 00:48 00:48 00:48 WBC 5.7 (4.5-12.0) X10-3/uL RBC 3.97 (3.23-5.20) x10(6)uL Hgb 11.5 (11.5-15.5) g/dL Hct 34.1 (30.0-51.3) % MCV 86.1 (80-96) fL MCH 28.9 (27.7-33.6) pg MCHC 33.6 (32.2-35.4) g/dL RDW 13.9 (11.5-15.5) % Plt Count 224 (125-369) X10(3)uL MPV 7.8 (7.4-10.4) fL Neut % (Auto) 59.4 (46-82) % Lymph % (Auto) 28.8 (13-37) % [place] % (Auto) 8.7 (4-12) % Eos % (Auto) 3 (1.0-5.0) % Baso % (Auto) 0 (0-2) % Neut # (Auto) 3.4 (1.6-8.3) # Lymph # (Auto) 1.6 (0.6-5.0) # [place] # (Auto) 0.5 (0.0-1.3) # Eos # (Auto) 0.2 (0.0-0.8) # Baso # (Auto) 0.0 (0.0-0.2) # PT 11.3 H (8.7-11.1) INR 1.16 H (0.89-1.13) Sodium 142 (135-145) mmol/L Potassium 3.5 (3.5-5.3) mmol/L Chloride 108 D (100-110) mmol/L Carbon Dioxide 26 (21-32) mmol/L BUN 21 H (7-18) mg/dL Creatinine 0.8 (0.55-1.02) mg/dL Est Cr Clr Drug Dosing TNP Estimated GFR (MDRD) > 60 (>60) BUN/Creatinine Ratio 26.3 H (9-20) Glucose 89 (80-116) mg/dL Calcium 8.4 L (8.6-10.2) mg/dL Total Bilirubin 0.4 (0.1-1.3) mg/dL AST 16 D (5-25) IU/L ALT 15 D (12-36) U/L Alkaline Phosphatase 123 H (56-112) IU/L Troponin I (<0.017-0.056) ng/mL Total Protein 6.2 (6.0-8.0) g/dL Albumin 2.6 L (3.2-4.6) g/dL Globulin 3.6 g/dL Albumin/Globulin Ratio 0.7 Urine Color (YELLOW) Urine Appearance (CLEAR) Urine pH (5.0-6.5) Ur Specific [place] (1.010-1.025) Urine Protein (NEGATIVE) mg/dL Urine Glucose (UA) (NORMAL) mg/dL Urine Ketones (NEGATIVE) mg/dL Urine Occult Blood (NEGATIVE) Urine Nitrite (NEGATIVE) Urine Bilirubin (NEGATIVE) Urine Urobilinogen (NEGATIVE) mg/dL Ur Leukocyte Esterase (NEGATIVE) Phenytoin (<0.4) ug/mL 05/07/19 05/07/19 05/07/19 Range/Units 00:48 00:48 02:25 WBC (4.5-12.0) X10-3/uL RBC (3.23-5.20) x10(6)uL Hgb (11.5-15.5) g/dL Hct (30.0-51.3) % MCV (80-96) fL MCH (27.7-33.6) pg MCHC (32.2-35.4) g/dL RDW (11.5-15.5) % Plt Count (125-369) X10(3)uL MPV (7.4-10.4) fL Neut % (Auto) (46-82) % Lymph % (Auto) (13-37) % [place] % (Auto) (4-12) % Eos % (Auto) (1.0-5.0) % Baso % (Auto) (0-2) % Neut # (Auto) (1.6-8.3) # Lymph # (Auto) (0.6-5.0) # [place] # (Auto) (0.0-1.3) # Eos # (Auto) (0.0-0.8) # Baso # (Auto) (0.0-0.2) # PT (8.7-11.1) INR (0.89-1.13) Sodium (135-145) mmol/L Potassium (3.5-5.3) mmol/L Chloride (100-110) mmol/L Carbon Dioxide (21-32) mmol/L BUN (7-18) mg/dL Creatinine (0.55-1.02) mg/dL Est Cr Clr Drug Dosing Estimated GFR (MDRD) (>60) BUN/Creatinine Ratio (9-20) Glucose (80-116) mg/dL Calcium (8.6-10.2) mg/dL Total Bilirubin (0.1-1.3) mg/dL AST (5-25) IU/L ALT (12-36) U/L Alkaline Phosphatase (56-112) IU/L Troponin I < 0.017 L (<0.017-0.056) ng/mL Total Protein (6.0-8.0) g/dL Albumin (3.2-4.6) g/dL Globulin g/dL Albumin/Globulin Ratio Urine Color Yellow (YELLOW) Urine Appearance Slightly cloudy (CLEAR) Urine pH 6.0 (5.0-6.5) Ur Specific [place] 1.030 H (1.010-1.025) Urine Protein Negative (NEGATIVE) mg/dL Urine Glucose (UA) Normal (NORMAL) mg/dL Urine Ketones Negative (NEGATIVE) mg/dL Urine Occult Blood Moderate H (NEGATIVE) Urine Nitrite Negative (NEGATIVE) Urine Bilirubin Negative (NEGATIVE) Urine Urobilinogen 1 H (NEGATIVE) mg/dL Ur Leukocyte Esterase Large H (NEGATIVE) Phenytoin < 0.5 L (<0.4) ug/mL Meds: Medications Generic Name Dose Route Start Last Admin Trade Name Freq PRN Reason Stop Dose Admin Sodium Chloride 1,000 mls @ 999 mls/hr 05/07/19 02:45 05/07/19 03:32 Normal Saline IV 30 mls/hr ASDIRECTED DOTTIE Infusion Sodium Chloride 10 ml 05/07/19 02:37 Saline Flush FLUSH ASDIRECTED PRN Keep Vein Open Discontinued Medications Generic Name Dose Route Start Last Admin Trade Name Freq PRN Reason Stop Dose Admin Iopamidol 100 ml 05/07/19 03:56 05/07/19 04:03 Isovue-370 (76%) IV 05/07/19 03:57 76 ml ONETIME ONE Administration - Radiology Interpretation Free Text/Narrative:: Chest x-ray with right rib detail shows possible nondisplaced right fifth or sixth rib fracture. There is no pneumothorax. There is either atelectasis or infiltrate in the right lower lung and there is appears to be a pleural effusion with blunting of the right CPA. Right shoulder x-ray reveals fairly severe DJD but no fracture or dislocation. Right humerus x-ray reveals no fracture. CT scan of head shows no signs of acute injury to the brain. There is some opacification of the left sphenoid sinus and otherwise no changes from previous. This was per the radiologist. ETN the chest showed no sign of pulmonary embolus. There is a large hiatal hernia stomach in the right chest and part of the transverse colon in the left chest. There is also a left pleural effusion. This was per the radiologist. - Re-Assessments/Exams Free Text/Narrative Re-Assessment/Exam: 05/07/19 03:30: Patient's blood tests are reassuring. Her chest x-ray shows effusion in the right lung with wanting of the right CPA and infiltrates in the right lower lung. She was also noted by the nursing staff. Very short of breath with activity when she was up to provide us with a urine specimen. The patient' s O2 saturations remained normal and she did not develop any tachycardia. However, with the patient having an abnormal chest x-ray, having shortness of breath, having right-sided chest pain and with a history of DVT/PE in the past, I will need to do a CTA of her chest to rule out PE and to further assess the abnormality in her right lower lung. An IV will be established and the patient will be given a normal saline bolus and then CTA of the chest will be done. 05/07/19 05:30: Patient is awake, alert and appropriate. She still has problems moving her right arm above her shoulder but she looks more comfortable. The urine specimen was positive for leukocytes and we sent it for culture. The CT scan of the patient's chest showed no evidence of pulmonary embolus all over there is a massive hiatal hernia with the entire stomach located in the right chest and a portion of the transverse colon located in the left chest there is some atelectasis of the posterior aspect of the right lower lobe that is related to this I will hernia and there is also right pleural effusion. There was no mention of rib fracture but the bones were not mentioned in the CT report. My review of the CT of the chest showed no evidence of rib fracture. I will have the patient take Tylenol 1000 mg by mouth every 6 hours as needed for pain. I will also place the patient on Keflex for urinary tract infection. It does sound as if she had a syncopal episode would cause this fall but her blood tests, EKG and CT scan do not support any serious problem causing this. She appears to be stable for discharge at this point. Departure - Departure Time of Disposition: 05:50 Disposition: Home, Self-Care 01 Condition: Good (Stable) Clinical Impression: Syncope Qualifiers: Syncope type: unspecified Qualified Code(s): R55 - Syncope and collapse Contusion of right chest wall Qualifiers: Encounter type: initial encounter Qualified Code(s): S20.211A - Contusion of right front wall of thorax, initial encounter Contusion of right arm Qualifiers: Encounter type: initial encounter Qualified Code(s): S40.021A - Contusion of right upper arm, initial encounter DJD of right shoulder Qualifiers: Osteoarthritis type: unspecified Qualified Code(s): M19.011 - Primary osteoarthritis, right shoulder UTI (urinary tract infection) Qualifiers: Urinary tract infection type: site unspecified Hematuria presence: without hematuria Qualified Code(s): N39.0 - Urinary tract infection, site not specified - Discharge Information Prescriptions: Cephalexin [Keflex] 500 mg PO TID 7 Days #21 capsule Instructions: Contusion, [id number], Urinary Tract Infection, Adult, Easy-to- Read, Chest Contusion, Adult, [id number], Syncope, [id number], Osteoarthritis Referrals: Bashir Lopez MD [Primary Care Provider] - Forms: ED Department Discharge Additional Instructions: Your blood tests were reassuring. The x-rays of your shoulder and upper arm showed no fracture but you do have significant degenerative disease in your right shoulder and that could be why you are having significant pain with movement of your right shoulder. There was no definite fracture seen on the CT scan of your chest and there was no evidence of blood clots. You did have a syncopal episode or a pass out spell that caused you to fall and injure your right arm and right chest. You also appear to have a urinary tract infection. You may take Tylenol 1000 mg by mouth every 6 hours as needed for pain. Medication as prescribed (Keflex 500 mg). The prescription for this medication was sent to [facility] in [place]. You do need to increase your fluid intake. Follow-up with your primary doctor this next week. Back to the emergency department for trouble breathing, unrelenting vomiting, worsening pain or any other concerning sign or symptom. Sepsis Event Note - Focused Exam Vital Signs: Vital Signs Temp Pulse Resp BP Pulse Ox 05/07/19 05:06 36.8 C 92 24 H 152/93 H 95 05/06/19 23:50 36.6 C 84 28 H 163/86 H 96 Date Exam was Performed: 05/07/19 Time Exam was Performed: 05:30 - My Orders Last 24 Hours: My Active Orders 05/07/19 00:35 Humerus Rt [CR] Stat Ribs 2V wo Chest Rt [CR] Stat Shoulder Comp Rt [CR] Stat EKG 12 Lead [EK] Routine 05/07/19 00:36 EKG Documentation Completion [RC] ASDIRECTED 05/07/19 00:59 Head wo Cont [CT] Stat 05/07/19 02:25 CULTURE URINE [RM] Routine 05/07/19 02:37 Sodium Chloride 0.9% [Saline Flush] 10 ml FLUSH ASDIRECTED PRN Peripheral IV Insertion Adult [OM.PC] Routine 05/07/19 02:45 Sodium Chloride 0.9% [Normal Saline] 1,000 ml IV ASDIRECTED 05/07/19 03:16 Ang Chest [CT] Stat - Assessment/Plan Last 24 Hours: My Active Orders 05/07/19 00:35 Humerus Rt [CR] Stat Ribs 2V wo Chest Rt [CR] Stat Shoulder Comp Rt [CR] Stat EKG 12 Lead [EK] Routine 05/07/19 00:36 EKG Documentation Completion [RC] ASDIRECTED 05/07/19 00:59 Head wo Cont [CT] Stat 05/07/19 02:25 CULTURE URINE [RM] Routine 05/07/19 02:37 Sodium Chloride 0.9% [Saline Flush] 10 ml FLUSH ASDIRECTED PRN Peripheral IV Insertion Adult [OM.PC] Routine 05/07/19 02:45 Sodium Chloride 0.9% [Normal Saline] 1,000 ml IV ASDIRECTED 05/07/19 03:16 Ang Chest [CT] Stat
[2019-05-07] MEDS ORDERED: Sodium Chloride 0.9% 10 ML Syringe FLUSH PRN (02:37)
[2019-05-07] MEDS ORDERED: Sodium Chloride 0.9% 1,000 ML IV SCH (02:45)
[2019-05-07] MEDS ORDERED: Iopamidol 755 Mg/ML 100 ML Bottle IV ONE (03:56)
[2019-05-07 05:46] VITALS: BP 138/90; PULSE 93
--- NOTE | 2019-05-08 16:26 | CR ---
INDICATION: Syncope with fall with injury. RIGHT SHOULDER: Three views of the right shoulder were obtained revealing demineralization compatible with osteoporosis. Degenerative changes are severe at the glenohumeral joint with severe narrowing of the superior portion of that joint space - virtually no remaining joint space is seen in that area. Hypertrophic lipping is noted. There is also irregularity and sclerosis at the undersurface of the acromion compatible with impingement, likely on the basis of rotator cuff injury and/or degeneration. Multiple adjacent rib fractures are noted. There is some calcification adjacent to the humeral head suggesting calcific tendinitis, which would be compatible with previous rotator cuff injury and/or degeneration. IMPRESSION: 1. Multiple rib fractures on the right posteriorly. 2. Osteoarthritis, osteoporosis, impingement and calcific tendinitis, right shoulder. [facility]
--- NOTE | 2019-05-08 16:30 | CR ---
INDICATION: Syncope with fall and injury. RIGHT HUMERUS: Five images of the right humerus were obtained in frontal and lateral projections and revealed no humeral fracture site. Degenerative changes are noted at the shoulder joint and at the medial and lateral elbow joint compartments. IMPRESSION: 1. No acute fracture or dislocation. 2. Osteoporosis. 3. Osteoarthritis and impingement at the shoulder. [facility]
--- NOTE | 2019-05-08 16:42 | CR ---
INDICATION: Syncope with fall with injury. RIGHT RIBS WITH CHEST: Two frontal views of the chest with 5 images of the right ribs were obtained and revealed the heart to be enlarged, the aorta tortuous. A large fixed hiatal hernia is noted, which includes what appears to be colon - likely the hepatic flexure area, but should be correlated clinically. Pleuroparenchymal changes are noted at the right lower lung field, which may be on the basis of pneumonia and pleuritis or possibly contusion, atelectasis and hemothorax. The left lung and pleural space were unremarkable. Diminished bone density is suggested, compatible with osteoporosis. Along the cranial aspect of the 10th right rib posterolaterally, there is an irregularity of the cortex, which could be on the basis of a previous healed fracture site. At the medial aspects of the 6th, 7th, 8th, and 9th ribs on the right near the costovertebral junctions, there are fractures with offset and some angulation, depending upon the fracture site. These are most visible on the Y-view of the right shoulder obtained for the shoulder examination mentioned above. No other definite acute abnormality was suggested. IMPRESSION: Medial-Posterior rib fractures 6, 7, 8, and 9 on the right with mild deformity and probable subsequent hemothorax and contusion. A pneumothorax is not identified. CT scan of 05/07/19 was reviewed, which shows similar findings to the plain x- rays compatible with multiple rib fractures on the right near the costovertebral junctions and atelectasis and/or contusion with hemothorax suggested on the right. Report was called to Dr. Nair at 1442 hours. [facility]
== END 2019-05-07 06:05 | disposition home or self-care (01) ==
LOC: FB.ED 23:41
DX: R55 Syncope and collapse (principal); S20.211A Contusion of right front wall of thorax, initial encounter; S40.021A Contusion of right upper arm, initial encounter; M19.011 Primary osteoarthritis, right shoulder; N39.0 Urinary tract infection, site not specified; K21.9 Gastro-esophageal reflux disease without esophagitis; Z86.718 Personal history of other venous thrombosis and embolism; Z88.5 Allergy status to narcotic agent; Z88.8 Allergy status to other drugs, medicaments and biological substances; Z79.899 Other long term (current) drug therapy; W10.9XXA Fall (on) (from) unspecified stairs and steps, initial encounter
CPT/HCPCS: 36415; 70450; 71101-RT; 71275; 73030-RT; 73060-RT; 80053; 80185; 81003; 84484; 85025; 85610; 87086; 93005; 93010; 96360; 96361; 99283; 99285-25; J7030; Q9967

== ENCOUNTER 2019-08-17 13:22 | Emergency (ER) | payer MEDICARE, BC ==
[2019-08-17 13:35] VITALS: BP 102/52; PULSE 98
--- NOTE | 2019-08-17 13:56 | EDM.PDOC ---
ED HPI GENERAL MEDICAL PROBLEM - General Chief Complaint: Lower Extremity Injury/Pain Stated Complaint: WEAKNESS Time Seen by Provider: 08/17/19 13:40 Source of Information: Reports: Patient, Family History Limitations: Reports: No Limitations - History of Present Illness INITIAL COMMENTS - FREE TEXT/NARRATIVE: pt brought in by family states she had fall on sunday , since then has been having difficulty moving around Today called when needed to get out of bed to bathroom , by the time family could get to her she had made and effort to get up and was not able to and was found lying between bed and night stand, Fallen again , now not able to ambulate has left sided chest wall pain , ? associated with fall pt also has a history of seizure disorder, has been on Dilantin in the past Onset: Gradual Onset Date: 08/15/19 Duration: Getting Worse Location: Reports: Lower Extremity, Left Quality: Reports: Ache, Dull Severity: Moderate Improves with: Reports: Rest Worsens with: Reports: Movement Context: Reports: Trauma Associated Symptoms: Reports: Confusion, Malaise - Related Data Allergies Allergy/AdvReac Type Severity Reaction Status Date / Time codeine Allergy Severe angioedema Verified 08/17/19 13:29 aspirin Allergy Vomiting Verified 08/17/19 13:29 Home Meds: Home Meds Acetaminophen [Tylenol Arthritis Pain] 650 mg PO Q8H PRN 09/09/17 [History] Donepezil [Aricept] 10 mg PO DAILY 09/09/17 [History] Melatonin 3 mg PO BEDTIME #30 tablet 09/11/17 [Rx] Memantine [Namenda] 10 mg PO DAILY #30 tablet 09/11/17 [Rx] Ferrous Sulfate [Iron] 325 mg PO DAILY 08/17/19 [History] Mirtazapine 15 mg BEDTIME 08/17/19 [History] Multivitamin [Multivitamins] 1 each PO DAILY 08/17/19 [History] Past Medical History HEENT History: Reports: Cataract Other HEENT History: Wears glasses usually. Cardiovascular History: Reports: Blood Clots/VTE/DVT Other Cardiovascular History: EDEMA Respiratory History: Reports: Pneumonia, Recurrent Other Respiratory History: COUGH, DIAPHRAGMATIC HERNIA Gastrointestinal History: Reports: Gastritis, GERD, Hiatal Hernia, PUD, Other ( See Below) Other Gastrointestinal History: GASTRODUODENITIS, BARRETTS ESOPHAGUS Genitourinary History: Reports: None Musculoskeletal History: Reports: Osteoporosis, Other (See Below) Other Musculoskeletal History: ANKLE SPRAIN Neurological History: Reports: Seizure Other Neuro History: Epilepsy. Psychiatric History: Reports: Other (See Below) Other Psychiatric History: insomnia Endocrine/Metabolic History: Hematologic History: Reports: Anemia Other Hematologic History: Denies any past history of anemia. Dermatologic History: Reports: Other (See Below) Other Dermatologic History: Skin toned lump on left forehead, approximately 1 inch diameter. explains she's had this since childhood. - Infectious Disease History Infectious Disease History: Reports: Chicken Pox, Rubella - Past Surgical History GI Surgical History: Reports: EGD, Hernia Repair/Other, Other (See Below) Social & Family History - Family History Family Medical History: Noncontributory - Caffeine Use Caffeine Use: Reports: Coffee Caffeine Use Comment: 2 cups per day - Recreational Drug Use Recreational Drug Use: No - Living Situation & Occupation Living situation: Reports: , with Spouse Occupation: Retired Review of Systems - Review of Systems Review Of Systems: See Below Constitutional: Reports: Weakness Eyes: Reports: No Symptoms Ears: Reports: No Symptoms Nose: Reports: No Symptoms Mouth/Throat: Reports: No Symptoms. Denies: Throat Swelling, Muffled Voice Respiratory: Reports: Other (left sided chest wall pain on palpation). Denies: Shortness of Breath, Wheezing, Cough, Sputum Cardiovascular: Reports: No Symptoms GI/Abdominal: Reports: No Symptoms Genitourinary: Reports: No Symptoms Musculoskeletal: Reports: Leg Pain (left leg pain , worse on palpation of left thigh ), Joint Pain (left hip pain , no ROM due to pain), Muscle Pain (left thigh swelling , bruising noted) Skin: Reports: Pallor Neurological: Reports: Weakness Psychiatric: Reports: No Symptoms ED EXAM, GENERAL - Physical Exam Exam: See Below Exam Limited By: No Limitations General Appearance: Alert, WD/WN, Lethargic, Cachetic, Other (no obvious head trauma) Eye Exam: Bilateral Eye: EOMI Ears: Normal External Exam Throat/Mouth: Normal Inspection Head: Atraumatic, Normocephalic Neck: Supple, Non-Tender Respiratory/Chest: No Respiratory Distress Cardiovascular: Regular Rate, Rhythm GI/Abdominal: Soft, Non-Tender Neurological: Alert, Oriented, Slow to Respond, Abnormal Gait, Other (right upper extremity hypertonus) Course - Vital Signs Last Recorded V/S: Last Vital Signs Temp 35.0 C L 08/17/19 13:33 Pulse 98 08/17/19 13:33 Resp 16 08/17/19 13:33 BP 102/52 L 08/17/19 13:33 Pulse Ox 100 08/17/19 13:33 - Orders/Labs/Meds Orders: Active Orders 24 hr Category Date Time Status EKG Documentation Completion [RC] ASDIRECTED Care 08/17/19 16:20 Active Meyer Catheter Insertion [Insert Urinary Catheter] [OM. Care 08/17/19 14:45 Ordered PC] Q24H Urinary Catheter Assessment [RC] QSHIFT Care 08/17/19 14:42 Active Head wo Cont [CT] Stat Exams 08/17/19 15:18 Taken Hip Min 2V or 3V w Pelvis Lt [CR] Stat Exams 08/17/19 13:48 Taken Knee 1V or 2V Lt [CR] Stat Exams 08/17/19 13:49 Taken Ribs 2V w Chest Lt [CR] Stat Exams 08/17/19 13:47 Taken UA W/MICROSCOPIC [URIN] Stat Lab 08/17/19 16:00 Ordered Sodium Chloride 0.9% [Normal Saline] 1,000 ml Med 08/17/19 14:45 Active IV ASDIRECTED EKG 12 Lead [EK] Routine Ther 08/17/19 16:20 Ordered Medication Orders Sodium Chloride (Normal Saline) 1,000 mls @ 250 mls/hr IV ASDIRECTED DOTTIE Last Admin: 08/17/19 15:10 Dose: 250 mls/hr Labs: Laboratory Tests 08/17/19 08/17/19 08/17/19 Range/Units 15:20 15:20 15:20 WBC 16.4 H (4.5-12.0) X10-3/uL RBC 4.07 (3.23-5.20) x10(6)uL Hgb 11.6 (11.5-15.5) g/dL Hct 34.6 (30.0-51.3) % MCV 85.1 (80-96) fL MCH 28.5 (27.7-33.6) pg MCHC 33.6 (32.2-35.4) g/dL RDW 14.6 (11.5-15.5) % Plt Count 165 (125-369) X10(3)uL MPV 8.2 (7.4-10.4) fL Add Manual Diff Yes Neutrophils % (Manual) 87 H (46-82) % Band Neutrophils % 1 (0-6) % Lymphocytes % (Manual) 9 L (13-37) % Monocytes % (Manual) 3 L (4-12) % PT 11.0 (9.0-11.1) sec INR 1.14 (1.00-1.24) Sodium 142 (135-145) mmol/L Potassium 4.6 D (3.5-5.3) mmol/L Chloride 106 (100-110) mmol/L Carbon Dioxide 25 (21-32) mmol/L BUN 73 H D (7-18) mg/dL Creatinine 1.8 H (0.55-1.02) mg/dL Est Cr Clr Drug Dosing TNP Estimated GFR (MDRD) 27 L (>60) BUN/Creatinine Ratio 40.6 H (9-20) Glucose 116 (80-116) mg/dL Calcium 8.3 L (8.6-10.2) mg/dL Troponin I (4.0-60.3) pg/mL NT-Pro-B Natriuret Pep (<=450) pg/mL Urine Color (YELLOW) Urine Appearance (CLEAR) Urine pH (5.0-6.5) Ur Specific [place] (1.010-1.025) Urine Protein (NEGATIVE) mg/dL Urine Glucose (UA) (NORMAL) mg/dL Urine Ketones (NEGATIVE) mg/dL Urine Occult Blood (NEGATIVE) Urine Nitrite (NEGATIVE) Urine Bilirubin (NEGATIVE) Urine Urobilinogen (NEGATIVE) mg/dL Ur Leukocyte Esterase (NEGATIVE) Urine RBC (0-5) Urine WBC (0-5) Ur Squamous Epith Cells (NS,R,O) Amorphous Sediment Urine Bacteria (NS) Phenytoin (<0.4) ug/mL 08/17/19 08/17/19 08/17/19 Range/Units 15:20 15:20 15:20 WBC (4.5-12.0) X10-3/uL RBC (3.23-5.20) x10(6)uL Hgb (11.5-15.5) g/dL Hct (30.0-51.3) % MCV (80-96) fL MCH (27.7-33.6) pg MCHC (32.2-35.4) g/dL RDW (11.5-15.5) % Plt Count (125-369) X10(3)uL MPV (7.4-10.4) fL Add Manual Diff Neutrophils % (Manual) (46-82) % Band Neutrophils % (0-6) % Lymphocytes % (Manual) (13-37) % Monocytes % (Manual) (4-12) % PT (9.0-11.1) sec INR (1.00-1.24) Sodium (135-145) mmol/L Potassium (3.5-5.3) mmol/L Chloride (100-110) mmol/L Carbon Dioxide (21-32) mmol/L BUN (7-18) mg/dL Creatinine (0.55-1.02) mg/dL Est Cr Clr Drug Dosing Estimated GFR (MDRD) (>60) BUN/Creatinine Ratio (9-20) Glucose (80-116) mg/dL Calcium (8.6-10.2) mg/dL Troponin I 60.6 H* (4.0-60.3) pg/mL NT-Pro-B Natriuret Pep 2280 H* (<=450) pg/mL Urine Color (YELLOW) Urine Appearance (CLEAR) Urine pH (5.0-6.5) Ur Specific [place] (1.010-1.025) Urine Protein (NEGATIVE) mg/dL Urine Glucose (UA) (NORMAL) mg/dL Urine Ketones (NEGATIVE) mg/dL Urine Occult Blood (NEGATIVE) Urine Nitrite (NEGATIVE) Urine Bilirubin (NEGATIVE) Urine Urobilinogen (NEGATIVE) mg/dL Ur Leukocyte Esterase (NEGATIVE) Urine RBC (0-5) Urine WBC (0-5) Ur Squamous Epith Cells (NS,R,O) Amorphous Sediment Urine Bacteria (NS) Phenytoin 0.1 L (<0.4) ug/mL 08/17/19 Range/Units 16:00 WBC (4.5-12.0) X10-3/uL RBC (3.23-5.20) x10(6)uL Hgb (11.5-15.5) g/dL Hct (30.0-51.3) % MCV (80-96) fL MCH (27.7-33.6) pg MCHC (32.2-35.4) g/dL RDW (11.5-15.5) % Plt Count (125-369) X10(3)uL MPV (7.4-10.4) fL Add Manual Diff Neutrophils % (Manual) (46-82) % Band Neutrophils % (0-6) % Lymphocytes % (Manual) (13-37) % Monocytes % (Manual) (4-12) % PT (9.0-11.1) sec INR (1.00-1.24) Sodium (135-145) mmol/L Potassium (3.5-5.3) mmol/L Chloride (100-110) mmol/L Carbon Dioxide (21-32) mmol/L BUN (7-18) mg/dL Creatinine (0.55-1.02) mg/dL Est Cr Clr Drug Dosing Estimated GFR (MDRD) (>60) BUN/Creatinine Ratio (9-20) Glucose (80-116) mg/dL Calcium (8.6-10.2) mg/dL Troponin I (4.0-60.3) pg/mL NT-Pro-B Natriuret Pep (<=450) pg/mL Urine Color Yellow (YELLOW) Urine Appearance Slightly cloudy (CLEAR) Urine pH 5.0 (5.0-6.5) Ur Specific [place] 1.025 (1.010-1.025) Urine Protein Trace (NEGATIVE) mg/dL Urine Glucose (UA) Normal (NORMAL) mg/dL Urine Ketones 15 H (NEGATIVE) mg/dL Urine Occult Blood Moderate H (NEGATIVE) Urine Nitrite Negative (NEGATIVE) Urine Bilirubin Small H (NEGATIVE) Urine Urobilinogen Normal (NEGATIVE) mg/dL Ur Leukocyte Esterase Negative (NEGATIVE) Urine RBC 0-5 (0-5) Urine WBC 0-5 (0-5) Ur Squamous Epith Cells Occasional (NS,R,O) Amorphous Sediment Few Urine Bacteria Rare H (NS) Phenytoin (<0.4) ug/mL Meds: Medications Generic Name Dose Route Start Last Admin Trade Name Freq PRN Reason Stop Dose Admin Sodium Chloride 1,000 mls @ 250 mls/hr 08/17/19 14:45 08/17/19 15:10 Normal Saline IV 250 mls/hr ASDIRECTED DOTTIE Administration - Re-Assessments/Exams Free Text/Narrative Re-Assessment/Exam: 08/17/19 15:57 pt had labs , Xray ordered on return from Xray noted to have a displaced left hip fracture Other labs , IVF and meyer ordered then call made to [facility] : took time but pt was accepted : transfer to ER on re-evaluation pt seemed to be somnolent : head CT ordered Departure - Departure Time of Disposition: 03:50 Disposition: DC/Tfer to [facility] Condition: Fair Clinical Impression: Seizure disorder, Frequent falls, Closed fracture of left hip requiring operative repair, Contusion of rib on left side Left rib fracture Qualifiers: Encounter type: initial encounter Rib fracture type: single rib Fracture type: closed Qualified Code(s): S22.32XA - Fracture of one rib, left side, initial encounter for closed fracture Dementia Qualifiers: Dementia type: Alzheimer's disease - Discharge Information *PRESCRIPTION DRUG MONITORING PROGRAM REVIEWED*: Not Applicable *COPY OF PRESCRIPTION DRUG MONITORING REPORT IN PATIENT DIANE: Not Applicable Referrals: Bashir Lopez MD [Primary Care Provider] - Forms: ED Department Discharge Sepsis Event Note - Evaluation Sepsis Screening Result: No Definite Risk - Focused Exam Vital Signs: Vital Signs Temp Pulse Resp BP Pulse Ox 08/17/19 13:33 35.0 C L 98 16 102/52 L 100 Date Exam was Performed: 08/17/19 Time Exam was Performed: 17:15 - My Orders Last 24 Hours: My Active Orders 08/17/19 13:47 Ribs 2V w Chest Lt [CR] Stat 08/17/19 13:48 Hip Min 2V or 3V w Pelvis Lt [CR] Stat 08/17/19 13:49 Knee 1V or 2V Lt [CR] Stat 08/17/19 14:42 Urinary Catheter Assessment [RC] QSHIFT 08/17/19 14:45 Meyer Catheter Insertion [Insert Urinary Catheter] [OM.PC] Q24H Sodium Chloride 0.9% [Normal Saline] 1,000 ml IV ASDIRECTED 08/17/19 15:18 Head wo Cont [CT] Stat 08/17/19 16:00 UA W/MICROSCOPIC [URIN] Stat 08/17/19 16:20 EKG Documentation Completion [RC] ASDIRECTED EKG 12 Lead [EK] Routine - Assessment/Plan Last 24 Hours: My Active Orders 08/17/19 13:47 Ribs 2V w Chest Lt [CR] Stat 08/17/19 13:48 Hip Min 2V or 3V w Pelvis Lt [CR] Stat 08/17/19 13:49 Knee 1V or 2V Lt [CR] Stat 08/17/19 14:42 Urinary Catheter Assessment [RC] QSHIFT 08/17/19 14:45 Meyer Catheter Insertion [Insert Urinary Catheter] [OM.PC] Q24H Sodium Chloride 0.9% [Normal Saline] 1,000 ml IV ASDIRECTED 08/17/19 15:18 Head wo Cont [CT] Stat 08/17/19 16:00 UA W/MICROSCOPIC [URIN] Stat 08/17/19 16:20 EKG Documentation Completion [RC] ASDIRECTED EKG 12 Lead [EK] Routine
[2019-08-17] MEDS ORDERED: Sodium Chloride 0.9% 1,000 ML IV SCH (14:45)
[2019-08-17] MEDS ORDERED: fentaNYL 100 MCG/2 ML SDV IVPUSH ONE (17:30)
== END 2019-08-17 17:40 | disposition critical access hospital (66) ==
LOC: FB.ED 13:22
DX: S72.142A Displaced intertrochanteric fracture of left femur, initial encounter for closed fracture (principal); S22.32XA Fracture of one rib, left side, initial encounter for closed fracture; G40.909 Epilepsy, unspecified, not intractable, without status epilepticus; G30.9 Alzheimer's disease, unspecified; F02.80 Dementia in other diseases classified elsewhere, unspecified severity, without behavioral disturbance, psychotic disturbance, mood disturbance, and anxiety; Z79.899 Other long term (current) drug therapy; Z88.5 Allergy status to narcotic agent; Z88.6 Allergy status to analgesic agent; W19.XXXA Unspecified fall, initial encounter
CPT/HCPCS: 36415; 51702; 70450; 71101-LT; 73502-LT; 73560-LT; 80048; 80185; 81001; 83880; 84484; 85025; 85610; 93005; 96361; 96374; 99284; 99285-25; J3010; J7030

== ENCOUNTER 2021-04-02 08:36 | Emergency (ER) | payer MEDICARE, BC ==
[2021-04-02] MEDS ORDERED: Propofol 200 MG/20 ML SDV IV ONE (08:37)
[2021-04-02] MEDS ORDERED: Succinylcholine 200 MG/10 ML MDV IV ONE (08:37)
--- NOTE | 2021-04-02 08:52 | EDM.PDOC ---
ED HPI GENERAL MEDICAL PROBLEM - General Stated Complaint: SOB Time Seen by Provider: 04/02/21 08:50 Source of Information: Reports: Patient, Family (Patient's son) History Limitations: Reports: Respiratory Distress - History of Present Illness INITIAL COMMENTS - FREE TEXT/NARRATIVE: 81-year-old female who no symptoms of nasal congestion, cough, fever and malaise about 10 days ago. Her had similar symptoms and was diagnosed with Covid and was transferred from this hospital to [facility] in [place]. The is still admitted at [facility] in [place] undergoing therapy but improving. The patient had been drinking liquids okay and eating okay with ability to get around and do things at home on her own. Her son was checking on her several times throughout the day and she had been doing well until the past 2 days. Over the past 2 days, the patient at decreased activity and increasing cough with worsening weakness and worsening breathing. There had been no vomiting but she had developed some diarrhea today. When the son checked on her this morning he noted that she was very weak and required to be almost carried to the bathroom where she was incontinent of stool and urine and was not able to respond a.m. normally. She was beating her chest and the only thing she could convey to him was that she was having severe difficulty breathing. Arrival here to the emergency department, she is quite tachypneic with a respirator rate in the 40s and O2 saturations that seemed to be in the 70s. Even on 100% nonrebreather they are only in the upper 70s and lower 80s at best. She is able to converse and tells us that she wants to be a FULL CODE and would want everything done to try to save her life. She also is able to tell me that she is having no chest pain at this time but just feeling very short of breath and weak all over. Her primary complaint is that she just cannot breathe. She is really unable to give me any other history than this. Most of the other history comes from the patient's son who is here with her now. The patient is apparently unvaccinated against Covid. There are no other associated signs or symptoms known. There are no other modifying factors known. 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: Reports: Other (see below) (Nothing.) - Related Data Allergies Allergy/AdvReac Type Severity Reaction Status Date / Time codeine Allergy Severe angioedema Verified 08/17/19 13:29 aspirin Allergy Vomiting Verified 08/17/19 13:29 Home Meds: Home Meds Acetaminophen [Tylenol Arthritis Pain] 650 mg PO Q8H PRN 09/09/17 [History] Donepezil [Aricept] 10 mg PO DAILY 09/09/17 [History] Melatonin 3 mg PO BEDTIME #30 tablet 09/11/17 [Rx] Memantine [Namenda] 10 mg PO DAILY #30 tablet 09/11/17 [Rx] Ferrous Sulfate [Iron] 325 mg PO DAILY 08/17/19 [History] Mirtazapine 15 mg BEDTIME 08/17/19 [History] Multivitamin [Multivitamins] 1 each PO DAILY 08/17/19 [History] Past Medical History HEENT History: Reports: Cataract Other HEENT History: Wears glasses usually. Cardiovascular History: Reports: Blood Clots/VTE/DVT, Hypertension Other Cardiovascular History: EDEMA Respiratory History: Reports: Pneumonia, Recurrent Other Respiratory History: COUGH, DIAPHRAGMATIC HERNIA Gastrointestinal History: Reports: Gastritis, GERD, Hiatal Hernia, PUD, Other (See Below) Other Gastrointestinal History: GASTRODUODENITIS, BARRETTS ESOPHAGUS Musculoskeletal History: Reports: Osteoporosis Neurological History: Reports: Seizure Other Neuro History: Epilepsy. Psychiatric History: Reports: Other (See Below) Other Psychiatric History: insomnia Hematologic History: Reports: Anemia Other Hematologic History: Denies any past history of anemia. Dermatologic History: Reports: Other (See Below) Other Dermatologic History: Skin toned lump on left forehead, approximately 1 inch diameter. explains she's had this since childhood. - Infectious Disease History Infectious Disease History: Reports: Chicken Pox, Rubella - Past Surgical History GI Surgical History: Reports: EGD, Hernia Repair/Other, Other (See Below) Social & Family History - Caffeine Use Caffeine Use: Reports: Coffee Caffeine Use Comment: 2 cups per day - Living Situation & Occupation Living situation: Reports: , with Spouse Occupation: Retired Social History Comment: Lives in her own home with her . ED [facility] GENER[facility] - Review of Systems Review Of Systems: Unable To Obtain Reason Not Obtained: Patient critically ill with altered mental status ED EXAM, GENERAL - Physical Exam Exam: See Below Exam Limited By: No Limitations General Appearance: Alert, Anxious, Severe Distress (Respiratory rate in the 40s. O2 saturations in the upper 70s.), Thin, Other (Poor perfusion) Eye Exam: Bilateral Eye: EOMI, Normal Inspection (Sclera are anicteric) Ears: Normal External Exam, Hearing Grossly Normal Ear Exam: Bilateral Ear: Auricle Normal Nose: Normal Inspection, No Blood Throat/Mouth: No Airway Compromise, Other (Dry mucous membranes) Head: Atraumatic, Normocephalic Neck: Normal Inspection, Supple, Non-Tender, Limited Range of Motion Respiratory/Chest: Respiratory Distress, Rales, Rhonchi, Accessory Muscle Use Cardiovascular: No Edema, No JVD, Tachycardia Peripheral Pulses: 2+: Radial (L), Radial (R) GI/Abdominal: Soft, No Mass Back Exam: Normal Inspection Extremities: Slow Capillary Refill (And cool in her hands) Neurological: CN II-XII Intact, No Motor/Sensory Deficits, Disoriented #1 Interpretation EKG Date: 04/02/21 Time: 08:59 Rhythm: Other (Eyes tachycardia) Rate (Beats/Min): 112 [place]: Normal P-Wave: Present QRS: Normal ST-T: Depressed (Anterolaterally poor R-wave progression.) Comparison: Change From Previous EKG (Theragyn EKG performed on 08/17/2019, the ST depression is improved and there is no longer any QT prolongation. There is also a sinus tachycardia now.) #2 Interpretation EKG Date: 04/02/21 Time: 10:33 Rhythm: A-Fib (With RVR) Rate (Beats/Min): 150 [place]: Normal P-Wave: Absent QRS: Normal ST-T: Normal QT: Normal Comparison: Change From Previous EKG (Compared to the previous EKG performed today, and now the patient has A. fib with RVR) Course - Orders/Labs/Meds Orders: Active Orders 24 hr Category Date Time Status BIPAP Adult [RT BiPAP/CPAP] [RC] ASDIRECTED Care 04/02/21 09:02 Active EKG Documentation Completion [RC] ASDIRECTED Care 04/02/21 09:01 Active EKG Documentation Completion [RC] ASDIRECTED Care 04/02/21 10:30 Active George Catheter Insertion [Insert Urinary Catheter] [OM. Care 04/02/21 09:15 Ordered PC] Q24H Urinary Catheter Assessment [RC] QSHIFT Care 04/02/21 09:04 Active Chest 1V Frontal [CR] Stat Exams 04/02/21 09:00 Taken Chest 1V Frontal [CR] Stat Exams 04/02/21 10:43 Ordered CORONAVIRUS COVID-19 ETELVINA [MOLEC] Stat Lab 04/02/21 09:06 Ordered CULTURE BLOOD [BC] Urgent Lab 04/02/21 09:25 Received CULTURE BLOOD [BC] Urgent Lab 04/02/21 09:30 Received CULTURE URINE [RM] Stat Lab 04/02/21 10:32 Received Sodium Chloride 0.9% [Saline Flush] Med 04/02/21 09:00 Active 10 ml FLUSH ASDIRECTED PRN Blood Culture x2 Reflex Set [OM.PC] Urgent Oth 04/02/21 09:00 Ordered Peripheral IV Insertion Adult [OM.PC] Routine Oth 04/02/21 09:00 Ordered EKG 12 Lead [EK] Routine Ther 04/02/21 09:00 Ordered EKG 12 Lead [EK] Routine Ther 04/02/21 10:29 Ordered Medication Orders Sodium Chloride (Sodium Chloride 0.9% 10 Ml Syringe) 10 ml FLUSH ASDIRECTED PRN PRN Reason: Keep Vein Open Last Admin: 04/02/21 10:00 Dose: 10 ml Documented by: MAUREEN Labs: Laboratory Tests 04/02/21 04/02/21 04/02/21 Range/Units 09:25 09:25 09:25 WBC 9.8 (3.0-10.3) x10-3/uL RBC 5.56 H (3.60-5.20) x10(6)uL Hgb 15.5 (11.4-15.5) g/dL Hct 48.4 H (34.2-48.2) % MCV 87.1 (76.7-100.5) fL MCH 27.9 (23.9-33.9) pg MCHC 32.1 (31.9-34.8) g/dL RDW 15.1 (12.3-16.5) % Plt Count 166 (151-488) x10(3)uL MPV 9.7 (7.1-12.4) fL Neut % (Auto) 80.4 H (30.8-76.2) % Lymph % (Auto) 13.2 L (18.4-52.1) % [place] % (Auto) 5.9 (4.4-15.7) % Eos % (Auto) 0.0 L (0.6-8.1) % Baso % (Auto) 0.5 (0.2-1.5) % Neut # (Auto) 7.9 H (1.5-6.3) x10-3/uL Lymph # (Auto) 1.3 (1.0-4.4) x10-3/uL Garvin # (Auto) 0.6 (0.3-1.0) x10-3/uL Eos # (Auto) 0.0 (0.0-0.8) x10-3/uL Baso # (Auto) 0.1 (0.0-0.1) x10-3/uL POC VBG pH (7.32-7.43) pH Units POC VBG pCO2 (41-51) mmHg POC VBG HCO3 (22-29) mmol/L VBG Base Excess (-2 - 3+) mmol/L O2 Delivery Device Oxygen Flow Rate LPM Sodium 149 H (135-145) mmol/L Potassium 4.4 (3.5-5.3) mmol/L Chloride 112 H D (100-110) mmol/L Carbon Dioxide 21 (21-32) mmol/L BUN 59 H D (7-18) mg/dL Creatinine 1.9 H (0.55-1.02) mg/dL Est Cr Clr Drug Dosing TNP Estimated GFR (MDRD) 25 L (>60) BUN/Creatinine Ratio 31.1 H (9-20) Glucose 125 H (80-116) mg/dL Lactic Acid (0.4-2.0) mmol/L Calcium 8.5 L (8.6-10.2) mg/dL Magnesium 1.8 (1.8-2.5) mg/dL Total Bilirubin 0.6 (0.1-1.3) mg/dL AST 55 H D (5-25) IU/L ALT 32 D (12-36) U/L Alkaline Phosphatase 79 (56-112) IU/L Troponin I 156.1 H* (4.0-60.3) pg/mL C-Reactive Protein 5.1 H* (0.5-0.9) mg/dL NT-Pro-B Natriuret Pep 1682 H* (<=450) pg/mL Total Protein 7.6 (6.0-8.0) g/dL Albumin 3.2 (3.2-4.6) g/dL Globulin 4.4 g/dL Albumin/Globulin Ratio 0.7 Urine Color (YELLOW) Urine Appearance (CLEAR) Urine pH (5.0-6.5) Ur Specific [place] (1.010-1.025) Urine Protein (NEGATIVE) mg/dL Urine Glucose (UA) (NORMAL) mg/dL Urine Ketones (NEGATIVE) mg/dL Urine Occult Blood (NEGATIVE) Urine Nitrite (NEGATIVE) Urine Bilirubin (NEGATIVE) Urine Urobilinogen (NEGATIVE) mg/dL Ur Leukocyte Esterase (NEGATIVE) Urine RBC (0-5) Urine WBC (0-5) Ur Squamous Epith Cells (NS,R,O) Urine Bacteria (NS) 04/02/21 04/02/21 04/02/21 Range/Units 09:25 09:43 10:32 WBC (3.0-10.3) x10-3/uL RBC (3.60-5.20) x10(6)uL Hgb (11.4-15.5) g/dL Hct (34.2-48.2) % MCV (76.7-100.5) fL MCH (23.9-33.9) pg MCHC (31.9-34.8) g/dL RDW (12.3-16.5) % Plt Count (151-488) x10(3)uL MPV (7.1-12.4) fL Neut % (Auto) (30.8-76.2) % Lymph % (Auto) (18.4-52.1) % [place] % (Auto) (4.4-15.7) % Eos % (Auto) (0.6-8.1) % Baso % (Auto) (0.2-1.5) % Neut # (Auto) (1.5-6.3) x10-3/uL Lymph # (Auto) (1.0-4.4) x10-3/uL [place] # (Auto) (0.3-1.0) x10-3/uL Eos # (Auto) (0.0-0.8) x10-3/uL Baso # (Auto) (0.0-0.1) x10-3/uL POC VBG pH 7.32 (7.32-7.43) pH Units POC VBG pCO2 36 L (41-51) mmHg POC VBG HCO3 19 L (22-29) mmol/L VBG Base Excess -7 L (-2 - 3+) mmol/L O2 Delivery Device Non rebr mask Oxygen Flow Rate 15 LPM Sodium (135-145) mmol/L Potassium (3.5-5.3) mmol/L Chloride (100-110) mmol/L Carbon Dioxide (21-32) mmol/L BUN (7-18) mg/dL Creatinine (0.55-1.02) mg/dL Est Cr Clr Drug Dosing Estimated GFR (MDRD) (>60) BUN/Creatinine Ratio (9-20) Glucose (80-116) mg/dL Lactic Acid 4.8 H* (0.4-2.0) mmol/L Calcium (8.6-10.2) mg/dL Magnesium (1.8-2.5) mg/dL Total Bilirubin (0.1-1.3) mg/dL AST (5-25) IU/L ALT (12-36) U/L Alkaline Phosphatase (56-112) IU/L Troponin I (4.0-60.3) pg/mL C-Reactive Protein (0.5-0.9) mg/dL NT-Pro-B Natriuret Pep (<=450) pg/mL Total Protein (6.0-8.0) g/dL Albumin (3.2-4.6) g/dL Globulin g/dL Albumin/Globulin Ratio Urine Color Yellow (YELLOW) Urine Appearance Slightly cloudy (CLEAR) Urine pH 5.0 (5.0-6.5) Ur Specific [place] 1.015 (1.010-1.025) Urine Protein Negative (NEGATIVE) mg/dL Urine Glucose (UA) Normal (NORMAL) mg/dL Urine Ketones Negative (NEGATIVE) mg/dL Urine Occult Blood Large H (NEGATIVE) Urine Nitrite Negative (NEGATIVE) Urine Bilirubin Negative (NEGATIVE) Urine Urobilinogen Normal (NEGATIVE) mg/dL Ur Leukocyte Esterase Negative (NEGATIVE) Urine RBC 5-10 H (0-5) Urine WBC 0-5 (0-5) Ur Squamous Epith Cells Occasional (NS,R,O) Urine Bacteria Many H (NS) Meds: Medications Generic Name Dose Route Start Last Admin Trade Name Frekatina PRN Reason Stop Dose Admin Sodium Chloride 10 ml 04/02/21 09:00 04/02/21 10:00 Sodium Chloride 0.9% 10 Ml Syringe FLUSH 10 ml ASDIRECTED PRN Administration Keep Vein Open Discontinued Medications Generic Name Dose Route Start Last Admin Trade Name Dakotah PRN Reason Stop Dose Admin Ceftriaxone Sodium 1 gm 04/02/21 10:18 04/02/21 10:49 Ceftriaxone 1 Gm Vial IVPUSH 04/02/21 10:19 1 gm ONETIME ONE Administration Dexamethasone 6 mg 04/02/21 10:17 04/02/21 10:51 Dexamethasone 4 Mg/Ml Sdv IVPUSH 04/02/21 10:18 6 mg ONETIME ONE Administration Diltiazem HCl 15 mg 04/02/21 10:30 04/02/21 10:47 Diltiazem 25 Mg/5 Ml Sdv IVPUSH 04/02/21 10:31 15 mg ONETIME ONE Administration Sodium Chloride 500 mls @ 999 mls/hr 04/02/21 09:12 04/02/21 10:35 Normal Saline IV 04/02/21 09:42 999 mls/hr .BOLUS ONE Administration Sodium Chloride 500 mls @ 999 mls/hr 04/02/21 10:10 04/02/21 09:05 Normal Saline IV 04/02/21 10:40 999 mls/hr .BOLUS ONE Administration Azithromycin 500 mg/ Sodium 250 mls @ 250 mls/hr 04/02/21 10:17 04/02/21 10:47 Chloride IV 04/02/21 11:16 250 mls/hr ONETIME ONE Administration Midazolam HCl 1 mg 04/02/21 10:59 04/02/21 11:09 Midazolam 1 Mg/Ml 2 Ml Sdv IVPUSH 04/02/21 11:00 1 mg ONETIME ONE Administration - Radiology Interpretation Free Text/Narrative:: Portable chest x-ray does show scattered infiltrates bilaterally relatively clear per my read. Portable chest x-ray following intubation shows ET tube above the jennifer with bilateral patchy infiltrates with right greater than left. - Re-Assessments/Exams Free Text/Narrative Re-Assessment/Exam: 04/02/21 09:15: Patient remains with severe respiratory distress. We are placing her on BiPAP and the BAG BLEACHER to come in to help with the patient. I feel that she will most probably need intubation. She has told us that she wishes to be a full code. 04/02/21 09:45: Patient had been on BiPAP and we have increased the level support with BiPAP and she is not tolerating it. Her O2 saturations remained in the upper 70s and her respiratory rate is in the 50 range now. Her heart rate is in the 120s to 130s and still appears to be a sinus tachycardia. An been discussed and the patient's case with Dr. Rocha, rugby league footballer at , recommended that we maximize the patient's BiPAP to see if this would improve her respiratory picture. It did not and the patient actually seemed to worsen when we did this. Therefore the BAG BLEACHER intubated the patient orally with a 7-5 ET tube. The rugby league footballer at [facility] in [place] has asked that we try to metastablize the patient and see where the patient's O2 saturations are going prior to transport. 04/02/21 10:10: The patient's O2 saturations on he ate 100%. She is moving air well. Her blood pressure which had initially dropped to the 70 systolic is now 90-100 systolic range and her perfusion is continuing to improve. Her pulse rate is in the 90-100 range. She is both chemically sedated and chemically paralyzed now. I have relayed this information to [facility] in [place] and air ambulance crew is now on their way to transport the patient to for direct admission to their intensive care unit. 04/02/21 10:35: Patient's pulse rate is now in the 150-180 range. EKG shows atrial fibrillation with RVR. Interestingly the ST segment depressions have all improved. The patient's O2 saturation remained 98% and the end tidal CO2 remains in the low 20s. Rocephin 1 g IV to be given, Zithromax 500 mg IV to be given and another normal saline 500 mL bolus to be given in (the patient's lactate is 4). I will also give the patient diltiazem 15 mg IV slow push. Air ambulance is approximate 45 minutes out. We will continue current therapy and continue to closely monitor the patient 04/02/21 11:00: Heart rate is now in the 110 to 130 range. She still is in A. fib with RVR. Her blood pressure is in the 120 systolic. Her O2 saturations are 99-100%. 04/02/21 11:30: Air EMS crew is now here. The patient's pulse rate is in the 120s and the blood pressure is in the 80 systolic. O2 saturation is 99%. Only scant amount of urine since placement of the George. The air ambulance crew will now be managing the patient and will be transferring her shortly. Departure - Departure Time of Disposition: 11:35 Disposition: DC/Tfer to [facility] 02 Condition: Critical Clinical Impression: COVID-19 virus infection, Atrial fibrillation with RVR Respiratory failure with hypoxia Qualifiers: Chronicity: acute Qualified Code(s): J96.01 - Acute respiratory failure with hypoxia Sepsis Qualifiers: Sepsis type: sepsis due to unspecified organism Sepsis acute organ dysfunction status: with acute organ dysfunction Severe sepsis acute organ dysfunction type: acute respiratory failure Acute respiratory failure type: with hypoxia Severe sepsis shock status: without septic shock Qualified Code(s): A41.9 - Sepsis, unspecified organism - Discharge Information Referrals: Bashir Lopez MD [Primary Care Provider] - Critical Care Note - Critical Care Note Total Time (mins): 95 Comments: Patient attended continuously either managing the patient directly or discussing the patient's case with consultants from accepting facility or facilitating care of the patient with the BAG BLE[facility]ER. Therefore critical-care time devoid of procedures was 95 minutes. - My Orders Last 24 Hours: My Active Orders 04/02/21 09:00 Chest 1V Frontal [CR] Stat Sodium Chloride 0.9% [Saline Flush] 10 ml FLUSH ASDIRECTED PRN Blood Culture x2 Reflex Set [OM.PC] Urgent Peripheral IV Insertion Adult [OM.PC] Routine EKG 12 Lead [EK] Routine 04/02/21 09:01 EKG Documentation Completion [RC] ASDIRECTED 04/02/21 09:02 BIPAP Adult [RT BiPAP/CPAP] [RC] ASDIRECTED 04/02/21 09:04 Urinary Catheter Assessment [RC] QSHIFT 04/02/21 09:06 CORONAVIRUS COVID-19 ETELVINA [MOLEC] Stat 04/02/21 09:15 George Catheter Insertion [Insert Urinary Catheter] [OM.PC] Q24H 04/02/21 09:25 CULTURE BLOOD [BC] Urgent 04/02/21 09:30 CULTURE BLOOD [BC] Urgent 04/02/21 10:29 EKG 12 Lead [EK] Routine 04/02/21 10:30 EKG Documentation Completion [RC] ASDIRECTED 04/02/21 10:32 CULTURE URINE [RM] Stat 04/02/21 10:43 Chest 1V Frontal [CR] Stat - Assessment/Plan Last 24 Hours: My Active Orders 04/02/21 09:00 Chest 1V Frontal [CR] Stat Sodium Chloride 0.9% [Saline Flush] 10 ml FLUSH ASDIRECTED PRN Blood Culture x2 Reflex Set [OM.PC] Urgent Peripheral IV Insertion Adult [OM.PC] Routine EKG 12 Lead [EK] Routine 04/02/21 09:01 EKG Documentation Completion [RC] ASDIRECTED 04/02/21 09:02 BIPAP Adult [RT BiPAP/CPAP] [RC] ASDIRECTED 04/02/21 09:04 Urinary Catheter Assessment [RC] QSHIFT 04/02/21 09:06 CORONAVIRUS COVID-19 ETELVINA [MOLEC] Stat 04/02/21 09:15 George Catheter Insertion [Insert Urinary Catheter] [OM.PC] Q24H 04/02/21 09:25 CULTURE BLOOD [BC] Urgent 04/02/21 09:30 CULTURE BLOOD [BC] Urgent 04/02/21 10:29 EKG 12 Lead [EK] Routine 04/02/21 10:30 EKG Documentation Completion [RC] ASDIRECTED 04/02/21 10:32 CULTURE URINE [RM] Stat 04/02/21 10:43 Chest 1V Frontal [CR] Stat
[2021-04-02] MEDS ORDERED: Sodium Chloride 0.9% 10 ML Syringe FLUSH PRN (09:00)
[2021-04-02] MEDS ORDERED: Sodium Chloride 0.9% 500 ML IV ONE ×2 (09:12→10:10)
[2021-04-02 09:49] LABS: BASE EXCESS VENOUS,POC -7 mmol/L (-2 - 3+); PCO2 VENOUS,POC 36 mmHg (41-51); PH VENOUS,POC 7.32 pH Units (7.32-7.43)
[2021-04-02] MEDS ORDERED: Dexamethasone 4 MG/ML SDV IVPUSH ONE (10:17)
[2021-04-02] MEDS ORDERED: Azithromycin 500 MG in Sodium Chloride 0.9% 250 ML IV ONE (10:17)
[2021-04-02] MEDS ORDERED: cefTRIAXone 1 GM Vial IVPUSH ONE (10:18)
[2021-04-02] MEDS ORDERED: Diltiazem 25 MG/5 ML SDV IVPUSH ONE (10:30)
[2021-04-02] MEDS ORDERED: Midazolam 1 MG/ML 2 ML SDV IVPUSH ONE (10:59)
[2021-04-02 19:09] VITALS: BP 116/67; PULSE 126
== END 2021-04-02 11:48 ==
LOC: FB.ED 08:36
DX: A41.9 Sepsis, unspecified organism (principal); R65.20 Severe sepsis without septic shock; J96.01 Acute respiratory failure with hypoxia; U07.1 COVID-19; I48.91 Unspecified atrial fibrillation; I10 Essential (primary) hypertension; Z88.5 Allergy status to narcotic agent; Z88.8 Allergy status to other drugs, medicaments and biological substances
CPT/HCPCS: 31500; 36415; 51702; 71045; 80053; 81001; 83605; 83735; 83880; 84484; 85025; 86140; 87040; 87086; 87088; 87186; 93005; 94660; 96365; 96375; 99291; J0330; J0456; J0696; J1100; J2250; J2704; J3490; J7040; J7050; U0002